=== PATIENT | male | born 1950 | race Caucasian/White ===

== ENCOUNTER → 2017-07-23 09:39 | Outpatient (CLI) | payer MEDICARE, OTHER, SELFPAY ==
--- NOTE | 2017-07-23 | DI.CT.S_ITS ---
PROCEDURE: CT CHEST ABD PEL W CON INDICATIONS: prostate cancer TECHNIQUE: After the administration of oral and intravenous contrast, 5 mm thick sections acquired from the lung apices to the symphysis. 5 mm coronal and sagittal reformats were performed, with additional 7 mm coronal MIP reformats through the lungs. For radiation dose reduction, the following was used: automated exposure control, adjustment of mA and/or kV according to patient size. COMPARISON: None. FINDINGS: Image quality: Excellent. CHEST: Lungs and pleura: No acute airspace opacities. No pleural effusions or pneumothorax. Central and peripheral airways appear patent and normal in caliber. Mediastinum: Heart size is normal. No pericardial effusion. No mediastinal or hilar adenopathy by size criteria. Thoracic aorta and central pulmonary arteries are normal in size. Esophagus is normal in caliber. No hiatal hernia. Chest wall: No axillary or supraclavicular adenopathy by size criteria. Thyroid gland appears normal. ABDOMEN: Solid organs: Liver is normal in size and enhancement. Gallbladder appears normal. Biliary system is non dilated. Pancreas enhances normally. Spleen is normal in size and enhancement. No adrenal nodules. Kidneys demonstrate normal size and enhancement, without hydronephrosis. Peritoneum and bowel: Bowel loops demonstrate normal wall thickness and caliber. No free fluid or air. Nodes and vessels: No retroperitoneal or mesenteric adenopathy by size criteria. Aorta and inferior vena cava are normal in size. Miscellaneous: No ventral hernias. PELVIS: Genitourinary: Bladder wall thickness is normal. Prior prostatectomy Miscellaneous: No inguinal hernias or adenopathy. Bones: Within the pelvis there are several small radiodense foci potentially a manifestation of early osseous metastatic disease. The largest is seen at the posterior border of the left acetabulum, measuring up to 8 mm in diameter, seen on series 2 image 117. 2 punctate sclerotic foci are seen within the medullary space of the left femoral head and a 3 x 5 mm focus is seen within the mid left iliac wing. More superiorly note is made of 3 separate small foci of sclerosis within the right humeral head, and also there is a sclerotic focus in the right acromium. No vertebral body compression fractures. IMPRESSION: No adenopathy seen. Several scattered sclerotic foci are present within the osseous elements of the chest and pelvis, the largest of which is located within the left acetabular posterior column measuring up to 8 mm in diameter. Early osseous metastatic disease might explain these abnormalities. A nuclear medicine bone scan is scheduled. Dictated by: Travon Kaur M.D. on 07/23/2017 at 14:29 Approved by: Travon Kaur M.D. on 07/23/2017 at 14:37
--- NOTE | 2017-07-23 | DI.NM.S_ITS ---
PROCEDURE: NM BONE SCAN WHOLE BODY RADIOPHARMACEUTICAL: 21.6 mCi Tc-99m MDP IV. INDICATIONS: prostate cancer TECHNIQUE: Delayed whole-body scintigrams were obtained approximately 3-4 hours after intravenous injection of radiotracer. Anterior and posterior views were acquired from vertex to feet. Additional left and right oblique views of the pelvis were obtained. COMPARISON: [facility], CT, CT CHEST ABD PEL W CON, 07/23/2017, 11:38. FINDINGS: No abnormal uptake of radiotracer is seen within the bones of the calvarium or bones of the face. No abnormal radiotracer uptake is seen within the cervical spine, thoracic spine, or lumbar spine. No abnormal uptake of radiotracer is seen within the sternum. No abnormal rib uptake is seen. A mild degree of symmetric uptake is seen within the region of the shoulders, which is attributed to degenerative change and is not considered to be pathologic. No abnormal uptake is seen within the upper extremities. There is a focus of radiotracer uptake seen involving greater trochanter of the left femur. No definite CT correlate can be seen for this lesion. No additional abnormal uptake is seen within the pelvis or within the lower extremities. No abnormal soft tissue uptake is seen. The kidneys demonstrate normal positions. IMPRESSION: No definite findings of bony metastatic disease are detected. There is a focus of increased radiotracer uptake involving the greater trochanter of the left femur, yet without a corresponding lesion seen on the accompanying CT examination. This is felt most likely to be benign. It is noted that there are several sclerotic foci seen on the accompanying CT examination. Scrutiny is given to these sites and no definite nuclear medicine correlate abnormal radiotracer uptake can be seen. The CT visible sclerotic lesions may be related to bone islands or lesions that are not metabolically active at this time. Dictated by: Santana Bruner M.D. on 07/23/2017 at 16:17 Approved by: Santana Bruner M.D. on 07/23/2017 at 16:22
[2017-07-23 11:28] LABS: BUN Creatinine Ratio 21.7 (6-22); Calcium 10.4 mg/dL (8.4-10.2); Estimated Glomerular Filt Rate > 60.0 mL/min (>60); Glucose 175 mg/dL (80-110); HEMOLYSIS < 15 (0-50); Potassium 5.2 mmol/L (3.4-5.1); Sodium 139 mmol/L (137-145)
[2017-07-23 11:59] LABS: Prostate Specific Antigen 0.886 ng/mL (0.10-4.00)
== END ==
PROVIDERS: PCP Internal Medicine; Visit Provider Internal Medicine Hematology & Oncology
DX: C61 Malignant neoplasm of prostate (principal)
CPT/HCPCS: 36415; 71260; 74177; 78306; 80048; 84153; A9503

== ENCOUNTER → 2017-11-26 15:07 | Outpatient (CLI) | payer MEDICARE, OTHER, SELFPAY ==
[2017-11-26 15:51] LABS: Add Manual Diff / Slide Review NO; Basophils Percent Auto 0.7 % (0-2); Eosinophils Percent Auto 1.8 % (2-4); Hematocrit 42.8 % (41-53); Hemoglobin 13.9 g/dL (13.5-17.5); Mean Corpuscular HGB Conc 32.6 % (30-36); Mean Corpuscular Hemoglobin 27.8 PG (26-34); Mean Corpuscular Volume 85.3 fL (80-100); Monocytes Percent Auto 8.2 % (3-14); Neutrophils Absolute Auto 5600 /uL (3000-5900); Neutrophils Percent Auto 71.3 % (50-75); Platelet Count 294 X10^3/uL (150-400); Red Blood Cell Count 5.02 X10^6/uL (4.5-5.9); Red Cell Distribution Width 14.5 % (11.6-14.8); White Blood Cell Count 7.8 X10^3/uL (4.5-11.0)
[2017-11-26 16:51] LABS: Alanine Aminotransferase 23 IU/L (21-72); Albumin 3.8 g/dL (3.5-5.0); Albumin Globulin Ratio 1.5 (1.0-2.8); Alkaline Phosphatase 51 U/L (38-126); Aspartate Aminotransferase 15 IU/L (17-59); Bilirubin Total 0.3 mg/dL (0.2-1.3); Blood Urea Nitrogen 23 mg/dL (9-20); Calcium 9.4 mg/dL (8.4-10.2); Carbon Dioxide 29 mmol/L (22-32); Chloride 101 mmol/L (98-107); Estimated Glomerular Filt Rate > 60.0 mL/min (>60); Globulin 2.6 g/dL (1.7-4.1); Glucose 375 mg/dL (80-110); HEMOLYSIS < 15 (0-50); Potassium 4.9 mmol/L (3.4-5.1); Sodium 138 mmol/L (137-145); Total Protein 6.4 g/dL (6.3-8.2)
== END ==
PROVIDERS: Family Provider Radiology Radiation Oncology; PCP Internal Medicine; Referring Provider Radiology Radiation Oncology; Visit Provider Internal Medicine Hematology & Oncology
DX: C61 Malignant neoplasm of prostate (principal)
CPT/HCPCS: 36415; 80053; 84153; 85025

== ENCOUNTER → 2018-02-25 10:39 | Outpatient (CLI) | payer MEDICARE, OTHER, SELFPAY | PROVIDERS: Family Provider Radiology Radiation Oncology; PCP Internal Medicine; Visit Provider Radiology Radiation Oncology | DX: C61 Malignant neoplasm of prostate (principal) | CPT/HCPCS: 36415; 84153 ==

== ENCOUNTER → 2018-07-29 14:06 | Outpatient (CLI) | payer MEDICARE, OTHER, SELFPAY ==
[2018-07-29 15:21] LABS: Alanine Aminotransferase 24 IU/L (21-72); Albumin Globulin Ratio 1.5 (1.0-2.8); Alkaline Phosphatase 85 U/L (38-126); Aspartate Aminotransferase 14 IU/L (17-59); Bilirubin Total 0.5 mg/dL (0.2-1.3); Blood Urea Nitrogen 20 mg/dL (9-20); Calcium 9.6 mg/dL (8.4-10.2); Carbon Dioxide 28 mmol/L (22-32); Chloride 99 mmol/L (98-107); Estimated Glomerular Filt Rate > 60.0 mL/min (>60); Globulin 2.7 g/dL (1.7-4.1); Glucose 262 mg/dL (80-110); HEMOLYSIS < 15 (0-50); Sodium 137 mmol/L (137-145); Total Protein 6.7 g/dL (6.3-8.2)
[2018-07-29 15:25] LABS: Add Manual Diff / Slide Review NO; Basophils Absolute Auto 100 /uL (0-100); Basophils Percent Auto 0.6 % (0-2); Eosinophils Absolute Auto 200 /uL (0-450); Eosinophils Percent Auto 2.1 % (2-4); Hematocrit 42.1 % (41-53); Lymphocytes Absolute Auto 1700 /uL (1100-4500); Lymphocytes Percent Auto 20.4 % (25-40); Mean Corpuscular HGB Conc 33.3 % (30-36); Mean Corpuscular Hemoglobin 27.7 PG (26-34); Mean Corpuscular Volume 83.1 fL (80-100); Monocytes Absolute Auto 700 /uL (0-900); Monocytes Percent Auto 8.2 % (3-14); Neutrophils Absolute Auto 5700 /uL (1500-7000); Neutrophils Percent Auto 68.7 % (50-75); Platelet Count 297 X10^3/uL (150-400); Red Blood Cell Count 5.06 X10^6/uL (4.5-5.9); Red Cell Distribution Width 14.3 % (11.6-14.8); White Blood Cell Count 8.2 X10^3/uL (4.5-11.0)
[2018-07-29 15:52] LABS: Prostate Specific Antigen 9.44 ng/mL (0.10-4.00)
== END ==
PROVIDERS: Family Provider Internal Medicine; PCP Internal Medicine; Visit Provider Internal Medicine Hematology & Oncology
DX: C61 Malignant neoplasm of prostate (principal)
CPT/HCPCS: 36415; 80053; 84153; 85025

== ENCOUNTER → 2018-08-07 09:07 | Outpatient (CLI) | payer MEDICARE, OTHER, SELFPAY ==
--- NOTE | 2018-08-07 | DI.RAD.S_ITS ---
PROCEDURE: XR WRIST RT 2V INDICATIONS: Left wrist pain TECHNIQUE: 2 views of the wrist were acquired. COMPARISON: None. FINDINGS: Bones: No fractures or dislocations but there is moderate degenerative osteoarthritic change best seen at the base of the first and second metacarpal bones.. No suspicious bony lesions. Scaphoid view: No trauma to the scaphoid is seen. Soft tissues: No suspicious soft tissue calcifications. 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 Dictated by: Travon Kaur M.D. on 08/07/2018 at 11:23 Approved by: Travon Kaur M.D. on 08/07/2018 at 11:24
--- NOTE | 2018-08-07 | DI.NM.S_ITS ---
PROCEDURE: SD BONE SCAN WHOLE BODY RADIOPHARMACEUTICAL: 19.9 mCi Tc-99m MDP IV. INDICATIONS: GENITOURINARY NEOPLASM TECHNIQUE: Delayed whole-body scintigrams were obtained approximately 3-4 hours after intravenous injection of radiotracer. Anterior and posterior views were acquired from vertex to feet. Additional left and right oblique views of the pelvis were obtained. COMPARISON: MR, PELVIS [facility]/O CONTRAST, 07/02/2013, 11:10. [facility], NM, NM BONE SCAN WHOLE BODY, 07/23/2017, 13:29. [facility], CT, CT CHEST ABD PEL W CON, 08/07/2018, 10:17. FINDINGS: There are multiple foci of abnormal uptake involving the left third and eighth ribs, and the right fifth, sixth and seventh ribs, possibly lower T8, T9, L2 and L4 vertebral bodies, right sacrum, right and left iliac bones, the left humeral head, consistent with osseous metastases. These osseous lesions are new since the last bone scan. IMPRESSION: Multiple foci of abnormal uptake compatible with osseous metastases. The finding is new since the last bone scan. Dictated by: Tati Vasques M.D. on 08/07/2018 at 14:50 Approved by: Tati Vasques M.D. on 08/07/2018 at 17:59
--- NOTE | 2018-08-07 10:34 | DI.CT.S_ITS ---
PROCEDURE: CT CHEST ABD PEL W CON INDICATIONS: GENITOURINARY NEOPLASM. Elevated PSA TECHNIQUE: After the administration of oral and intravenous contrast, 5 mm thick sections acquired from the lung apices to the symphysis. 5 mm coronal and sagittal reformats were performed, with additional 7 mm coronal MIP reformats through the lungs. For radiation dose reduction, the following was used: automated exposure control, adjustment of mA and/or kV according to patient size. COMPARISON: [facility], CT, CT CHEST ABD PEL W CON, 07/23/2017, 11:38. FINDINGS: Image quality: Excellent. CHEST: Lungs and pleura: No acute airspace opacities. No pleural effusions or pneumothorax. Central and peripheral airways appear patent and normal in caliber. Mediastinum: Heart size is normal. No pericardial effusion. No mediastinal or hilar adenopathy by size criteria. Thoracic aorta and central pulmonary arteries are normal in size. Esophagus is normal in caliber. No hiatal hernia. Chest wall: No axillary or supraclavicular adenopathy by size criteria. Thyroid gland appears normal. ABDOMEN: Solid organs: Liver is normal in size and enhancement. Gallbladder appears normal. Biliary system is non dilated. Pancreas enhances normally. Spleen is normal in size and enhancement. No adrenal nodules. Kidneys demonstrate normal size and enhancement, without hydronephrosis. Peritoneum and bowel: Bowel loops demonstrate normal wall thickness and caliber. No free fluid or air. Nodes and vessels: No retroperitoneal or mesenteric adenopathy by size criteria. Aorta and inferior vena cava are normal in size. Miscellaneous: No ventral hernias. PELVIS: Genitourinary: Bladder wall thickness is normal. Miscellaneous: No inguinal hernias or adenopathy. Bones: No new suspicious bony lesions, and the previously identified scattered foci of punctate elevated radiodensity in the pelvis and shoulder regions bilaterally have not enlarged in size. No vertebral body compression fractures. IMPRESSION: Stable appearing punctate foci of sclerosis within scattered areas of the marrow space, best seen within the pelvis and at the shoulders. No adenopathy has developed. There is stable postsurgical change of prostatectomy. There is a significant change in the bladder wall thickness at the anterior border of the cluster of surgical clips in the prostate resection bed. An area of soft tissue thickening with nodular margination has developed in this area where prior soft tissue thickening in July of last year was not present. This area measures up to 4.1 cm transverse and 2.3 cm in AP dimension, an interval change which can be seen both on axial and sagittal imaging through the bladder. A urology consultation for consideration of endoscopy and biopsy likely is warranted. Dictated by: Travon Kaur M.D. on 08/07/2018 at 13:30 Approved by: Travon Kaur M.D. on 08/07/2018 at 14:10
[2018-08-07 12:05] LABS: Add Manual Diff / Slide Review NO; Basophils Absolute Auto 0 /uL (0-100); Basophils Percent Auto 0.6 % (0-2); Eosinophils Absolute Auto 100 /uL (0-450); Eosinophils Percent Auto 1.6 % (2-4); Hematocrit 41.6 % (41-53); Lymphocytes Absolute Auto 1300 /uL (1100-4500); Lymphocytes Percent Auto 14.9 % (25-40); Mean Corpuscular HGB Conc 33.7 % (30-36); Mean Corpuscular Hemoglobin 27.8 PG (26-34); Mean Corpuscular Volume 82.6 fL (80-100); Monocytes Absolute Auto 800 /uL (0-900); Monocytes Percent Auto 9.6 % (3-14); Neutrophils Absolute Auto 6300 /uL (1500-7000); Neutrophils Percent Auto 73.3 % (50-75); Platelet Count 300 X10^3/uL (150-400); Red Blood Cell Count 5.03 X10^6/uL (4.5-5.9); Red Cell Distribution Width 13.8 % (11.6-14.8); White Blood Cell Count 8.6 X10^3/uL (4.5-11.0)
[2018-08-07 12:16] LABS: Alanine Aminotransferase 25 IU/L (21-72); Albumin Globulin Ratio 1.5 (1.0-2.8); Alkaline Phosphatase 106 U/L (38-126); Aspartate Aminotransferase 17 IU/L (17-59); Bilirubin Total 0.5 mg/dL (0.2-1.3); Blood Urea Nitrogen 20 mg/dL (9-20); Calcium 9.5 mg/dL (8.4-10.2); Carbon Dioxide 24 mmol/L (22-32); Chloride 97 mmol/L (98-107); Estimated Glomerular Filt Rate > 60.0 mL/min (>60); Globulin 2.6 g/dL (1.7-4.1); Glucose 226 mg/dL (80-110); HEMOLYSIS < 15 (0-50); Sodium 131 mmol/L (137-145); Total Protein 6.6 g/dL (6.3-8.2)
[2018-08-07 12:42] LABS: Prostate Specific Antigen 10.8 ng/mL (0.10-4.00)
== END ==
PROVIDERS: Family Provider Internal Medicine; PCP Internal Medicine; Visit Provider Internal Medicine Hematology & Oncology
DX: C61 Malignant neoplasm of prostate (principal); D49.59 Neoplasm of unspecified behavior of other genitourinary organ; M25.532 Pain in left wrist; R97.20 Elevated prostate specific antigen [PSA]
CPT/HCPCS: 36415; 71260; 73100; 74177; 78306; 80053; 84153; 85025; A9503; Q9967

== ENCOUNTER → 2018-09-19 11:05 | Outpatient (CLI) | payer MEDICARE, OTHER, SELFPAY ==
[2018-09-19 12:09] LABS: Add Manual Diff / Slide Review NO; Basophils Absolute Auto 100 /uL (0-100); Basophils Percent Auto 0.8 % (0-2); Eosinophils Absolute Auto 300 /uL (0-450); Eosinophils Percent Auto 2.9 % (2-4); Hemoglobin 14.2 g/dL (13.5-17.5); Lymphocytes Absolute Auto 1700 /uL (1100-4500); Lymphocytes Percent Auto 17.4 % (25-40); Mean Corpuscular HGB Conc 33.7 % (30-36); Mean Corpuscular Hemoglobin 27.8 PG (26-34); Mean Corpuscular Volume 82.4 fL (80-100); Monocytes Absolute Auto 1000 /uL (0-900); Monocytes Percent Auto 10.2 % (3-14); Neutrophils Absolute Auto 6600 /uL (1500-7000); Neutrophils Percent Auto 68.7 % (50-75); Platelet Count 352 X10^3/uL (150-400); Red Cell Distribution Width 14.6 % (11.6-14.8); White Blood Cell Count 9.6 X10^3/uL (4.5-11.0)
[2018-09-19 12:43] LABS: Alanine Aminotransferase 62 IU/L (21-72); Albumin 4.6 g/dL (3.5-5.0); Albumin Globulin Ratio 1.4 (1.0-2.8); Alkaline Phosphatase 322 U/L (38-126); Aspartate Aminotransferase 31 IU/L (17-59); Bilirubin Total 0.5 mg/dL (0.2-1.3); Blood Urea Nitrogen 20 mg/dL (9-20); Carbon Dioxide 27 mmol/L (22-32); Chloride 101 mmol/L (98-107); Estimated Glomerular Filt Rate > 60.0 mL/min (>60); Globulin 3.3 g/dL (1.7-4.1); Glucose 253 mg/dL (80-110); HEMOLYSIS < 15 (0-50); Potassium 4.7 mmol/L (3.4-5.1); Sodium 139 mmol/L (137-145); Total Protein 7.9 g/dL (6.3-8.2)
[2018-09-19 13:09] LABS: Prostate Specific Antigen 1.66 ng/mL (0.10-4.00)
== END ==
PROVIDERS: Family Provider Internal Medicine; PCP Internal Medicine; Visit Provider Internal Medicine Hematology & Oncology
DX: C61 Malignant neoplasm of prostate (principal); C79.51 Secondary malignant neoplasm of bone
CPT/HCPCS: 36415; 80053; 84153; 85025

== ENCOUNTER → 2018-10-13 15:20 | Outpatient (CLI) | payer MEDICARE, OTHER, SELFPAY ==
[2018-10-13 16:31] LABS: Hematocrit 37.3 % (41-53); Hemoglobin 12.2 g/dL (13.5-17.5); Mean Corpuscular HGB Conc 32.8 % (30-36); Mean Corpuscular Hemoglobin 27.2 PG (26-34); Mean Corpuscular Volume 82.9 fL (80-100); Platelet Count 489 X10^3/uL (150-400)
[2018-10-13 16:34] LABS: Add Manual Diff / Slide Review YES
[2018-10-13 16:40] LABS: Alanine Aminotransferase 66 IU/L (21-72); Albumin 3.8 g/dL (3.5-5.0); Albumin Globulin Ratio 1.4 (1.0-2.8); Alkaline Phosphatase 118 U/L (38-126); Aspartate Aminotransferase 25 IU/L (17-59); Bilirubin Total 0.3 mg/dL (0.2-1.3); Blood Urea Nitrogen 24 mg/dL (9-20); Calcium 9.7 mg/dL (8.4-10.2); Carbon Dioxide 23 mmol/L (22-32); Chloride 103 mmol/L (98-107); Estimated Glomerular Filt Rate > 60.0 mL/min (>60); Globulin 2.8 g/dL (1.7-4.1); Glucose 338 mg/dL (80-110); HEMOLYSIS < 15 (0-50); Potassium 4.9 mmol/L (3.4-5.1); Sodium 139 mmol/L (137-145); Total Protein 6.6 g/dL (6.3-8.2)
[2018-10-13 17:10] LABS: Prostate Specific Antigen 2.58 ng/mL (0.10-4.00)
== END ==
PROVIDERS: Family Provider Internal Medicine; PCP Internal Medicine; Visit Provider Internal Medicine Hematology & Oncology
DX: C61 Malignant neoplasm of prostate (principal)
CPT/HCPCS: 36415; 80053; 84153; 85025

== ENCOUNTER → 2018-11-03 11:41 | Outpatient (CLI) | payer MEDICARE, OTHER, SELFPAY ==
[2018-11-03 12:42] LABS: Add Manual Diff / Slide Review NO; Basophils Absolute Auto 100 /uL (0-100); Basophils Percent Auto 1.7 % (0-2); Eosinophils Absolute Auto 100 /uL (0-450); Eosinophils Percent Auto 0.9 % (2-4); Hematocrit 37.9 % (41-53); Hemoglobin 12.4 g/dL (13.5-17.5); Lymphocytes Absolute Auto 2300 /uL (1100-4500); Lymphocytes Percent Auto 29.2 % (25-40); Mean Corpuscular HGB Conc 32.6 % (30-36); Mean Corpuscular Hemoglobin 27.6 PG (26-34); Mean Corpuscular Volume 84.6 fL (80-100); Monocytes Absolute Auto 1000 /uL (0-900); Monocytes Percent Auto 13.3 % (3-14); Neutrophils Absolute Auto 4200 /uL (1500-7000); Neutrophils Percent Auto 54.9 % (50-75); Platelet Count 359 X10^3/uL (150-400); Red Blood Cell Count 4.48 X10^6/uL (4.5-5.9); Red Cell Distribution Width 15.9 % (11.6-14.8); White Blood Cell Count 7.7 X10^3/uL (4.5-11.0)
[2018-11-03 12:52] LABS: Alanine Aminotransferase 32 IU/L (21-72); Albumin 3.9 g/dL (3.5-5.0); Albumin Globulin Ratio 1.4 (1.0-2.8); Alkaline Phosphatase 82 U/L (38-126); Aspartate Aminotransferase 21 IU/L (17-59); BUN Creatinine Ratio 16.7 (6-22); Bilirubin Total 0.4 mg/dL (0.2-1.3); Blood Urea Nitrogen 15 mg/dL (9-20); Calcium 9.5 mg/dL (8.4-10.2); Carbon Dioxide 26 mmol/L (22-32); Chloride 104 mmol/L (98-107); Estimated Glomerular Filt Rate > 60.0 mL/min (>60); Globulin 2.8 g/dL (1.7-4.1); Glucose 106 mg/dL (80-110); HEMOLYSIS < 15 (0-50); Potassium 5.3 mmol/L (3.4-5.1); Sodium 139 mmol/L (137-145); Total Protein 6.7 g/dL (6.3-8.2)
[2018-11-03 13:21] LABS: Prostate Specific Antigen 1.69 ng/mL (0.10-4.00)
== END ==
PROVIDERS: PCP Internal Medicine; Visit Provider Internal Medicine Hematology & Oncology
DX: C61 Malignant neoplasm of prostate (principal); C79.51 Secondary malignant neoplasm of bone
CPT/HCPCS: 36415; 80053; 84153; 85025

== ENCOUNTER → 2018-11-24 13:42 | Outpatient (CLI) | payer MEDICARE, OTHER, SELFPAY ==
[2018-11-24 14:06] LABS: Add Manual Diff / Slide Review NO; Basophils Absolute Auto 100 /uL (0-100); Basophils Percent Auto 0.9 % (0-2); Eosinophils Absolute Auto 0 /uL (0-450); Eosinophils Percent Auto 0.3 % (2-4); Hematocrit 35.7 % (41-53); Hemoglobin 11.9 g/dL (13.5-17.5); Lymphocytes Absolute Auto 1900 /uL (1100-4500); Lymphocytes Percent Auto 17.9 % (25-40); Mean Corpuscular HGB Conc 33.4 % (30-36); Mean Corpuscular Hemoglobin 28.1 PG (26-34); Mean Corpuscular Volume 84.3 fL (80-100); Monocytes Absolute Auto 1400 /uL (0-900); Monocytes Percent Auto 13.1 % (3-14); Neutrophils Absolute Auto 7100 /uL (1500-7000); Neutrophils Percent Auto 67.8 % (50-75); Platelet Count 352 X10^3/uL (150-400); Red Blood Cell Count 4.24 X10^6/uL (4.5-5.9); Red Cell Distribution Width 16.9 % (11.6-14.8); White Blood Cell Count 10.4 X10^3/uL (4.5-11.0)
[2018-11-24 15:03] LABS: Alanine Aminotransferase 39 IU/L (21-72); Albumin 3.5 g/dL (3.5-5.0); Albumin Globulin Ratio 1.4 (1.0-2.8); Alkaline Phosphatase 71 U/L (38-126); Aspartate Aminotransferase 24 IU/L (17-59); BUN Creatinine Ratio 27.8 (6-22); Bilirubin Total 0.4 mg/dL (0.2-1.3); Blood Urea Nitrogen 25 mg/dL (9-20); Calcium 9.3 mg/dL (8.4-10.2); Carbon Dioxide 25 mmol/L (22-32); Chloride 100 mmol/L (98-107); Estimated Glomerular Filt Rate > 60.0 mL/min (>60); Globulin 2.5 g/dL (1.7-4.1); Glucose 295 mg/dL (80-110); HEMOLYSIS < 15 (0-50); Potassium 4.9 mmol/L (3.4-5.1); Sodium 135 mmol/L (137-145)
[2018-11-24 15:33] LABS: Prostate Specific Antigen 1.43 ng/mL (0.10-4.00)
== END ==
PROVIDERS: PCP Internal Medicine; Visit Provider Internal Medicine Hematology & Oncology
DX: C61 Malignant neoplasm of prostate (principal); C79.51 Secondary malignant neoplasm of bone
CPT/HCPCS: 36415; 80053; 84153; 85025

== ENCOUNTER → 2018-12-16 11:47 | Outpatient (CLI) | payer MEDICARE, OTHER, SELFPAY ==
[2018-12-16 13:13] LABS: Prostate Specific Antigen 1.46 ng/mL (0.10-4.00)
== END ==
PROVIDERS: PCP Internal Medicine; Visit Provider Internal Medicine Hematology & Oncology
DX: C61 Malignant neoplasm of prostate (principal); C79.51 Secondary malignant neoplasm of bone
CPT/HCPCS: 36415; 84153

== ENCOUNTER → 2019-03-16 09:33 | Outpatient (CLI) | payer MEDICARE, OTHER, SELFPAY ==
--- NOTE | 2019-03-16 | DI.NM.S_ITS ---
PROCEDURE: OR BONE SCAN WHOLE BODY RADIOPHARMACEUTICAL: 21.6 mCi Tc-99m MDP IV. INDICATIONS: Neoplasm Genitourinary organ TECHNIQUE: Delayed whole-body scintigrams were obtained approximately 3-4 hours after intravenous injection of radiotracer. Anterior and posterior views were acquired from vertex to feet. Additional left and right oblique views of the pelvis were obtained. COMPARISON: [facility], OR, NM BONE SCAN WHOLE BODY, 08/07/2018, 12:42. [facility], CT, CT CHEST ABD PEL W CON, 03/16/2019, 10:49. FINDINGS: Multiple foci of increased uptake are again seen involving the ribs, T8, T9, L2 and L4 vertebral bodies, right sacrum, right and left iliac bones, the left humeral head, consistent with osseous metastases. These osseous lesions are unchanged compared to the last bone scan dated 08/07/1018. No definitive new lesions. Distended urinary bladder, which partially obscure pelvis. IMPRESSION: Stable bone scan with multiple foci of osseous metastasis. Dictated by: Tati Vasques M.D. on 03/16/2019 at 18:18 Approved by: Tati Vasques M.D. on 03/17/2019 at 8:36
--- NOTE | 2019-03-16 09:50 | DI.CT.S_ITS ---
PROCEDURE: CT CHEST ABD PEL W CON INDICATIONS: Neoplasm Genitourinary organ TECHNIQUE: After the administration of oral and intravenous contrast, 5 mm thick sections acquired from the lung apices to the symphysis. 5 mm coronal and sagittal reformats were performed, with additional 7 mm coronal MIP reformats through the lungs. For radiation dose reduction, the following was used: automated exposure control, adjustment of mA and/or kV according to patient size. COMPARISON: [facility], CR, XR CHEST 1 VIEW, 10/10/2018, 12:16. [facility], NM, NM BONE SCAN WHOLE BODY, 08/07/2018, 12:42. [facility], CT, CT CHEST ABD PEL W CON, 08/07/2018, 10:17. FINDINGS: Image quality: Excellent. CHEST: Lungs and pleura: No acute airspace opacities. Right upper lobe inferior aspect 4 mm pulmonary nodule, (3/191), unchanged. Right lower lobe juxtapleural nodule measuring 3 mm, (3/297), unchanged. This may be calcified. A few additional punctate pulmonary nodules. No new or enlarging nodules identified. No pleural effusions or pneumothorax. Central and peripheral airways appear patent and normal in caliber. Mediastinum: Heart size is normal. No pericardial effusion. No mediastinal or hilar adenopathy by size criteria. Subcarinal lymph node with a short axis diameter of 6 mm, (2/37), previously 8 mm. Thoracic aorta and central pulmonary arteries are normal in size. No central pulmonary embolism. Esophagus is normal in caliber. No hiatal hernia. Chest wall: Right-sided port with the catheter tip now projecting cephalad in the internal jugular vein No axillary or supraclavicular adenopathy by size criteria. Thyroid gland is unremarkable. ABDOMEN: Solid organs: Liver is normal in size and enhancement. No focal lesion. Gallbladder is unremarkable. Biliary system is non dilated. Pancreas enhances normally. Spleen is normal in size and enhancement. No adrenal nodules. Kidneys demonstrate normal size and enhancement, without hydronephrosis. Small simple appearing right renal cysts are unchanged. Peritoneum and bowel: Bowel loops demonstrate normal wall thickness and caliber. No free fluid or air. Appendix was not identified. Nodes and vessels: No retroperitoneal or mesenteric adenopathy by size criteria. Small para-aortic lymph node is unchanged. Aorta and inferior vena cava are normal in size. Moderate atherosclerotic plaque. Miscellaneous: No ventral hernias. PELVIS: Genitourinary: Bladder base thickening is less conspicuous. Post prostatectomy. Miscellaneous: Bilateral fat containing inguinal hernias. Pelvic sidewall lymph node dissection. Small left pelvic sidewall node measuring about 1.2 x 1 cm, (04/23), previously 1.1 x 0.8 cm. Bones: Extensive sclerotic lesions throughout the axial and appendicular skeleton which is substantially increased. No vertebral body compression fractures. IMPRESSION: 1. Substantial interval increase in the sclerotic osseous metastases. Please see scheduled same day nuclear medicine bone scan. 2. A few mildly prominent lymph nodes which are suspicious but indeterminate for metastatic disease. 3. No solid parenchymal metastasis. 4. Stable 4 mm pulmonary nodule in the right lower lobe. 5. Malpositioned port catheter tip projecting cephalad in the right IJ. Dictated by: Tommy Kelley M.D. on 03/16/2019 at 12:45 Approved by: Tommy Kelley M.D. on 03/16/2019 at 13:05
[2019-03-16 10:33] LABS: BUN Creatinine Ratio 27.3 (6-22); Blood Urea Nitrogen 30 mg/dL (9-20); Calcium 9.8 mg/dL (8.4-10.2); Carbon Dioxide 26 mmol/L (22-32); Chloride 101 mmol/L (98-107); Estimated Glomerular Filt Rate > 60.0 mL/min (>60); Glucose 291 mg/dL (80-110); HEMOLYSIS < 15 (0-50); Potassium 4.7 mmol/L (3.4-5.1); Sodium 137 mmol/L (137-145)
== END ==
PROVIDERS: Family Provider Internal Medicine; PCP Internal Medicine; Visit Provider Internal Medicine Hematology & Oncology
DX: C61 Malignant neoplasm of prostate (principal); C79.51 Secondary malignant neoplasm of bone; T82.524A Displacement of infusion catheter, initial encounter; R91.8 Other nonspecific abnormal finding of lung field; N28.1 Cyst of kidney, acquired; K40.20 Bilateral inguinal hernia, without obstruction or gangrene, not specified as recurrent
CPT/HCPCS: 36415; 71260; 74177; 78306; 80048; A9503; Q9967

== ENCOUNTER → 2020-03-28 12:53 | Outpatient (CLI) | payer MEDICARE, OTHER, SELFPAY ==
--- NOTE | 2020-03-28 13:51 | DIET.PN ---
Diabetes Intake: Initial Assessment Assess: Mr. Johnson is a 69 yom referred for type 2 diabetes. He has a long standing hx of diabetes, but since beginning cancer therapy his diabetes has not been in good control. He eats an overall healthful diet including lots of vegetables, protein, oatmeal, and soups. 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 Labs: Per pt report: A1c: 9.7 Meds: metf 1000mg BID; glimepiride 10mg ; lantus 30 u pm Diet: per 24 hr recall: B: oatmeal w/ sugar and milk L: salad w/ pro (kale/caesar) D: meat/veg soup Sn: peanuts, almonds, kind bars, rice cake w/cr chz, cheese w/ roast beef Wt: 182lb Ht: 69in BMI: 26.8 DX: Altered nutrition related laboratory values related to impaired glucose metabolism, lack of previous exposure to nutrition information as evidenced by pt report, diagnosis of diabetes, previous diet high in refined carbohydrates. Intervention: 1. Completed intake assessment. Discussed barriers to care. 2. Discussed pathophysiology of diabetes. Reviewed A1c and its correlation to blood glucose numbers. Discussed recommended BG ranges. 3. Discussed importance of self-monitoring, how often, and when to check. 4. Reviewed hyper/hypoglycemia and treatment. 5. Reviewed safe disposal of equipment (strip/lancets/insulin needles). 6. Created SMART goals for pt self-care and success. 7. Discussed program curriculum outline and class needs based on individual goals. SMART Goals: 1. Pt would like to lower A1c by measuring portions and learning to carbohydrate count. Monitor/Evaluate: Pt will call to schedule DSME.
== END ==
PROVIDERS: Family Provider Internal Medicine; PCP Internal Medicine; Referring Provider Internal Medicine; Visit Provider Internal Medicine
DX: E11.9 Type 2 diabetes mellitus without complications (principal); Z79.4 Long term (current) use of insulin; Z71.3 Dietary counseling and surveillance
CPT/HCPCS: G0108

== ENCOUNTER → 2021-10-04 14:05 | Outpatient (CLI) | payer MEDICARE, OTHER, SELFPAY | PROVIDERS: Family Provider Internal Medicine; PCP Internal Medicine; Visit Provider Physician Assistant | DX: N39.0 Urinary tract infection, site not specified (principal) | CPT/HCPCS: 87077; 87086; 87186 ==

== ENCOUNTER 2023-12-16 12:42 | Emergency (ER) | payer MEDICARE, OTHER, SELFPAY ==
[2023-12-16] VITALS (12 sets, daily range): BP systolic 130–151; BP diastolic 63–75; PULSE 106–151; RESP 20–22; TEMP 36.4; O2SAT 98–100; BMI 19.1
--- NOTE | 2023-12-16 12:53 | EKG_ITS ---
[place] [id number] [address] [place] [address] Test Date: 2023-12-16 Pat Name: Lui Johnson Department: [facility] Room: Gender: Male Qm Consultant: ANETTE : 1950 Requested By: Order Number: [id number] Reading MD: Lui Jain MD Measurements Intervals [place] Rate: 132 P: 61 WV: 122 QRS: 66 QRSD: 86 T: 243 QT: 310 QTc: 459 Interpretive Statements Sinus tachycardia Nonspecific ST and T wave abnormality Electronically Signed On 12-16-2023 13:42:59 PDT by Lui Jain MD
--- NOTE | 2023-12-16 13:06 | ED.WEAKNESS ---
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 His last treatment was a few weeks ago he is scheduled to start a new treatment this week. However he has had significant decreased appetite and oral intake. Feels like his abdomen is more distended and bloated. He did have a PET scan last week. No significant nausea or vomiting. Reports that his ribs hurt as well. He does have a history of constipation due to opiate therapy and takes linaclotide. Related Data Home Medications Medication Instructions Recorded Confirmed ASPIRIN (#ASPIR 81) ##0 04/07/11 simvastatin 40 mg tablet (Zocor) ##0 04/07/11 Fish Oil (Fish Oil 500 MG Softgel) 1,000 mg PO QDAY ##0 09/05/11 [MENS MULTIPLE VIT.] ##0 09/05/11 [VIT C ] 1,000 mg PO QDAY ##0 09/05/11 [VIT D3 ] ##0 09/05/11 felodipine 5 mg tablet,extended 10 mg PO QDAY ##0 09/05/11 release 24 hr glimepiride 4 mg tablet (Amaryl) 4 mg PO QDAY ##0 09/05/11 hydrochlorothiazide 25 mg tablet 25 mg PO QDAY ##0 09/05/11 lisinopril 20 mg tablet 20 mg PO QDAY ##0 09/05/11 metformin 500 mg tablet,extended 1,000 mg PO QDAY ##0 09/05/11 release 24 hr (Glucophage XR) Previous Rx's Medication Instructions Recorded lactulose 20 gram/30 mL oral 20 g (30 mL) PO BID PRN 12/16/23 solution constipation #1,200 mL Allergies Allergy/AdvReac Type Severity Reaction Status Date / Time No Known Drug Allergies Allergy Verified 12/16/23 12:52 Patient History Social History Smoking Status: Never smoker eating out: 1-3 times/week Type(s) of exercise: walking Smoking Status: Never smoker Exam Initial Vital Signs Initial Vital Signs: Vital Signs Pulse Rate 143 H 12/16/23 12:48 Pulse Oximetry 100 12/16/23 12:48 GENERAL: Alert thin cachectic 73-year-old male and in no acute distress. HEENT: Head atraumatic,EOMI, pupils reactive, face symmetric, moist mucous membranes CARDIOVASCULAR: Regular rate and rhythm without murmurs, rubs or gallops. RESPIRATORY: Breath sounds equal bilaterally, no wheezes rales or rhonchi. ABDOMEN: Soft, nontender. Normoactive bowel sounds all 4 quadrants. No guarding or rebound. Significant distention EXTREMITIES: Normal range of motion, no clubbing or edema. Neurovascularly intact NEUROLOGICAL: Alert and oriented x4.Normal gait and speech. Cranial nerves II through XII grossly intact. SKIN: Warm, dry, no laceration, no petechiae, no rashes or lesions. Course Orders Ordered: ED Orders 12/16/23 12:50 EKG-12 Lead Stat 12/16/23 13:00 CBC Auto Diff [Complete Blood Count AUTO DIFF] Stat CMP [Comprehensive Metabolic Panel] Stat Lactate (Lactic Acid) Stat Lipase Stat 12/16/23 13:15 CT abdomen pelvis w con Stat 12/16/23 13:25 Respiratory Panel (Film Array) Stat 12/16/23 13:39 Blood Culture Stat Discontinued Medications Acetaminophen (Acetaminophen 325 Mg Tablet) 650 mg PO NOW ONE Stop: 12/16/23 16:50 Last Admin: 12/16/23 16:55 Dose: 650 mg Documented By: GLORIA Sodium Chloride (Normal Saline 0.9%) 1,000 mls @ 1,000 mls/hr IV BOLUS ONE Stop: 12/16/23 14:14 Last Infusion: 12/16/23 15:48 Dose: Infused Documented By: Admin: 12/16/23 13:27 Dose: 1,000 mls/hr Documented By: GLORIA Mineral Oil (Mineral Oil 1 Each Enema) 1 each NC NOW ONE Stop: 12/16/23 15:06 Last Admin: 12/16/23 15:48 Dose: 1 each Documented By: GLORIA Vital Signs Vital signs: Vital Signs - 8 hr 12/16/23 12:48 12/16/23 12:49 12/16/23 12:49 Temperature Pulse Rate 143 H 133 H Respiratory Rate 22 Blood Pressure 151/75 H Pulse Oximetry 100 100 Oxygen Delivery Method 12/16/23 12:52 12/16/23 13:00 12/16/23 13:00 Temperature 97.6 F Pulse Rate 151 H 122 H Respiratory Rate 22 22 Blood Pressure 151/75 H 135/70 Pulse Oximetry 100 99 Oxygen Delivery Method Room Air 12/16/23 13:30 12/16/23 13:30 12/16/23 14:00 Temperature Pulse Rate 116 H 106 H Respiratory Rate 22 20 Blood Pressure 148/67 H Pulse Oximetry 99 98 Oxygen Delivery Method 12/16/23 14:30 12/16/23 15:00 12/16/23 15:30 Temperature Pulse Rate 112 H 113 H 118 H Respiratory Rate 22 21 22 Blood Pressure Pulse Oximetry 98 98 98 Oxygen Delivery Method 12/16/23 16:40 12/16/23 16:41 12/16/23 16:41 Temperature Pulse Rate 117 H 116 H Respiratory Rate Blood Pressure 133/63 Pulse Oximetry 98 99 Oxygen Delivery Method 12/16/23 16:51 12/16/23 16:51 Temperature Pulse Rate 117 H Respiratory Rate Blood Pressure 130/66 Pulse Oximetry 98 Oxygen Delivery Method MDM - Weakness Lab Data 12/16/23 13:00 12/16/23 13:00 Labs: Lab Results 12/16/23 12/16/23 Range/Units 13:00 13:25 WBC 10.0 (4.5-11.0) X10^3/uL RBC 3.54 L (4.5-5.9) X10^6/uL Hgb 8.6 L (13.5-17.5) g/dL Hct 26.8 L (41-53) % MCV 75.7 L (80-100) fL MCH 24.4 L (26-34) PG MCHC 32.2 (30-36) % RDW 22.2 H (11.6-14.8) % Plt Count 576 H (150-400) X10^3/uL Neut % (Auto) Not Reportable Lymph % (Auto) Not Reportable [place] % (Auto) Not Reportable Eos % (Auto) Not Reportable Baso % (Auto) Not Reportable Lymph # (Auto) Not Reportable [place] # (Auto) Not Reportable Baso # (Auto) Not Reportable Total Counted 100 Seg Neutrophils % 66.0 (38-70) % Band Neutrophils % 2.0 L (3-7) % Lymphocytes % (Manual) 23.0 L (25-45) % Monocytes % (Manual) 2.0 (2-11) % Basophils % (Manual) 3.0 H (0-1) % Metamyelocytes % 4.0 H (-0) % Neutrophils # (Manual) 6800 H (3971-4965) /uL Nucleated RBCs 2 H ( - 0) #/Diff Platelet Estimate Increased on smear Plt Morphology Comment RBC Morphology See below Anisocytosis 1+ H Microcytosis 1+ H Sodium 131 L (137-145) mmol/L Potassium 4.3 (3.4-5.1) mmol/L Chloride 96 L (98-107) mmol/L Carbon Dioxide 21 L (22-32) mmol/L BUN 16 (9-20) mg/dL Creatinine 0.54 L (0.66-1.25) mg/dL Estimated GFR > 60 (>60) mL/min BUN/Creatinine Ratio 29.6 H (6-22) Glucose 85 (80-110) mg/dL Lactate 1.4 (0.7-2.1) mmol/L Calcium 9.4 (8.4-10.2) mg/dL Total Bilirubin 0.6 (0.2-1.3) mg/dL AST 55 (17-59) IU/L ALT 11 (<50) IU/L Alkaline Phosphatase 327 H (38-126) U/L Total Protein 7.5 (6.3-8.2) g/dL Albumin 3.6 (3.5-5.0) g/dL Globulin 3.9 (1.7-4.1) g/dL Albumin/Globulin Ratio 0.9 L (1.0-2.8) Lipase 24 (23-300) U/L Chlamy pneumoniae PCR Not detected (Not Detect) Adenovirus (PCR) Not detected (Not Detect) B. pertussis DNA (PCR) Not detected (Not Detect) B.parapertussis DNA PCR Not detected (Not Detecte) Coronavirus OC43 (PCR) Not detected (Not Detect) Coronavirus HKU1 (PCR) Not detected (Not Detect) Coronavirus 229E (PCR) Not detected (Not Detect) SARS-CoV-2 (PCR) Not detected (Not Detecte) Coronavirus NL63 (PCR) Not detected (Not Detect) Human Metapneumovir PCR Not detected (Not Detect) Influenza Type A (PCR) Not detected (Not Detect) Influenza Type B (PCR) Not detected (Not Detect) M. pneumoniae (PCR) Not detected (Not Detect) Parainfluenza 1 (PCR) Not detected (Not Detect) Parainfluenza 2 (PCR) Not detected (Not Detect) Parainfluenza 3 (PCR) Not detected (Not Detect) Parainfluenza 4 (PCR) Not detected (Not Detect) RSV (PCR) Not detected (Not Detect) Entero/Rhino (PCR) Not detected (Not Detect) Imaging Data CT scan - abdomen/pelvis: Radiologist Impression: PROCEDURE: CT ABDOMEN PELVIS W CON INDICATIONS: ab pain hx metastatic prostate cancer TECHNIQUE: After the administration of intravenous contrast, axial sections acquired from the lung bases to the pubic symphysis. Coronal and sagittal reformats were performed. For radiation dose reduction, the following was used: automated exposure control, adjustment of mA and/or kV according to patient size. COMPARISON: None. FINDINGS: Image quality: Diagnostic. Lower Chest: No significant findings. ABDOMEN: Liver: No solid mass. Subcentimeter hypoattenuating lesion in the medial right hepatic lobe, probably benign cyst. Gallbladder: No radiopaque gallstones or wall thickening. Biliary ducts: No biliary dilation. Pancreas: No ductal dilation. Spleen: Size is within normal limits. Adrenal Glands: No adrenal nodules. Kidneys and Ureters: No hydronephrosis. No solid mass. No complex renal cystic lesion which requires follow up. Stomach and Bowel: Normal colonic caliber, without significant wall thickening. Large colonic stool load without rectal wall thickening or colonic wall thickening to suggest stercoral proctitis/ colitis. No obstructing mass. No obstipation. Peritoneum: No abnormal intraperitoneal fluid. No free air. Ventral Wall: No significant ventral hernia. Abdominal Nodes: No retroperitoneal or mesenteric adenopathy by size criteria. Vessels: Aorta and inferior vena cava are normal in size. PELVIS: Pelvic Organs: Prostatectomy Bladder: No bladder wall thickening, accounting for underdistention. Pelvic Nodes: No enlarged lymph nodes. Miscellaneous: No inguinal hernias are seen. Bones: Diffuse osseous metastatic disease, without pathologic fracture. IMPRESSION: Large colonic stool load without rectal wall thickening or colonic wall thickening to suggest stercoral proctitis/ colitis. No obstructing mass. No obstipation. Diffuse osseous metastatic disease, without pathologic fracture. Dictated by: Venkatesh Og M.D. on 12/16/2023 at 13:57 Approved by: Venkatesh Og M.D. on 12/16/2023 at 14:01 ECG Data Attestation: I personally reviewed and interpreted this ECG as follows: Interpretation: Sinus tachycardia rate 132 NC interval 122 QRS [address] changes or T-wave inversions MDM Narrative Medical decision making narrative: MDM CC: Constipation decreased appetite Complicating co-morbidities: Metastatic prostate cancer to brain and bone Medical records reviewed: Primary care note from 12/03/2023, discussed depression at that time new pain time as well Differential considered: Worsening cancer metastasis bowel obstruction Exam documented above, pertinent findings include: Thin cachectic chronically ill male abdomen soft nontender nondistended Lab Test results independently reviewed as above. Pertinent findings: WBC is 10.0 hemoglobin 8.6 hematocrit 26.8, prior labs a CC from 11/12/23 show 8.4/27 CMP: Sodium 131 potassium 4.3 chloride 96 carbon dioxide 21 BUN 16 creatinine 0.5 Independently reviewed EKG as above sinus tachycardia Imaging studies independently reviewed: Significant stool load throughout abdomen bone metastasis no obstruction Treatments: IV fluids, enema Re-evaluations: Patient did not have success with enema Discussion: 73-year-old male with metastatic prostate cancer appears weak cachectic and chronically ill. Complaining of constipation issues. After reading and reviewing records fused constipation has been an issue an ongoing anxiety thing for him. also very concerned that he has not eating or drinking. Recommended protein drink electrolyte fluids encouraged p.o. intake as best as tolerated. They have an appointment with her touch in a couple of days to discuss plan of moving forward. At this time blood work and CT are overall reassuring despite poor p.o. intake electrolytes are stable significant LASHON. At this time patient did not have any success with the enema but abdomen is soft. Recommend lactulose for home treatment which they agreed to. Discharge Plan Departure Patient Disposition: Home Clinical Impression: Constipation Instructions: DI for Constipation Activity Restrictions/Additional Instructions: *You have been diagnosed with constipation *What to do: At this time please stay hydrated. Recommend Pedialyte Gatorade electrolyte packet *Continue to take medications as directed Lactulose 1-2 times daily until constipation resolved *Follow up with your primary care provider in 2-3 days or call [phone] *Return to ER if you should have increased dizziness lightheadedness or any new, worsening or concerning symptoms Prescriptions: New lactulose 20 gram/30 mL solution 20 g PO BID PRN (Reason: constipation) Qty: 1200 0RF No Action ASPIRIN (#ASPIR 81) Qty: 0 simvastatin [Zocor] 40 MG tablet Qty: 0 metformin [Glucophage XR] 500 MG tablet extended release 24 hr 1,000 mg PO QDAY Qty: 0 lisinopril 20 MG tablet 20 mg PO QDAY Qty: 0 hydrochlorothiazide 25 MG tablet 25 mg PO QDAY Qty: 0 glimepiride [Amaryl] 4 MG tablet 4 mg PO QDAY Qty: 0 felodipine 5 MG tablet extended release 24 hr 10 mg PO QDAY Qty: 0 [MENS MULTIPLE VIT.] Qty: 0 Fish Oil (Fish Oil 500 MG Softgel) 1,000 mg PO QDAY Qty: 0 [VIT C ] 1,000 mg PO QDAY Qty: 0 [VIT D3 ] Qty: 0 Referrals: Miscellaneous,Doctor, MD [Primary Care Provider] - Stand Alone Forms: Patient Portal/API
--- NOTE | 2023-12-16 13:15 | DI.CT.S_ITS ---
PROCEDURE: CT ABDOMEN PELVIS W CON INDICATIONS: ab pain hx metastatic prostate cancer TECHNIQUE: After the administration of intravenous contrast, axial sections acquired from the lung bases to the pubic symphysis. Coronal and sagittal reformats were performed. For radiation dose reduction, the following was used: automated exposure control, adjustment of mA and/or kV according to patient size. COMPARISON: None. FINDINGS: Image quality: Diagnostic. Lower Chest: No significant findings. ABDOMEN: Liver: No solid mass. Subcentimeter hypoattenuating lesion in the medial right hepatic lobe, probably benign cyst. Gallbladder: No radiopaque gallstones or wall thickening. Biliary ducts: No biliary dilation. Pancreas: No ductal dilation. Spleen: Size is within normal limits. Adrenal Glands: No adrenal nodules. Kidneys and Ureters: No hydronephrosis. No solid mass. No complex renal cystic lesion which requires follow up. Stomach and Bowel: Normal colonic caliber, without significant wall thickening. Large colonic stool load without rectal wall thickening or colonic wall thickening to suggest stercoral proctitis/ colitis. No obstructing mass. No obstipation. Peritoneum: No abnormal intraperitoneal fluid. No free air. Ventral Wall: No significant ventral hernia. Abdominal Nodes: No retroperitoneal or mesenteric adenopathy by size criteria. Vessels: Aorta and inferior vena cava are normal in size. PELVIS: Pelvic Organs: Prostatectomy Bladder: No bladder wall thickening, accounting for underdistention. Pelvic Nodes: No enlarged lymph nodes. Miscellaneous: No inguinal hernias are seen. Bones: Diffuse osseous metastatic disease, without pathologic fracture. IMPRESSION: Large colonic stool load without rectal wall thickening or colonic wall thickening to suggest stercoral proctitis/ colitis. No obstructing mass. No obstipation. Diffuse osseous metastatic disease, without pathologic fracture. Dictated by: Venkatesh Og M.D. on 12/16/2023 at 13:57 Approved by: Venkatesh Og M.D. on 12/16/2023 at 14:01
[2023-12-16 13:27] LABS: Hematocrit 26.8 % (41-53); Hemoglobin 8.6 g/dL (13.5-17.5); Mean Corpuscular HGB Conc 32.2 % (30-36); Mean Corpuscular Hemoglobin 24.4 PG (26-34); Mean Corpuscular Volume 75.7 fL (80-100); Platelet Count 576 X10^3/uL (150-400); Red Blood Cell Count 3.54 X10^6/uL (4.5-5.9); Red Cell Distribution Width 22.2 % (11.6-14.8)
[2023-12-16] MEDS: SODIUM CHLORIDE 0.9% 1,000 ML 1000 ML IV (13:27)
[2023-12-16 13:29] LABS: Add Manual Diff / Slide Review YES; Alanine Aminotransferase 11 IU/L (<50); Albumin 3.6 g/dL (3.5-5.0); Albumin Globulin Ratio 0.9 (1.0-2.8); Alkaline Phosphatase 327 U/L (38-126); Aspartate Aminotransferase 55 IU/L (17-59); BUN Creatinine Ratio 29.6 (6-22); Bilirubin Total 0.6 mg/dL (0.2-1.3); Blood Urea Nitrogen 16 mg/dL (9-20); Calcium 9.4 mg/dL (8.4-10.2); Carbon Dioxide 21 mmol/L (22-32); Chloride 96 mmol/L (98-107); Estimated Glomerular Filt Rate > 60 mL/min (>60); Globulin 3.9 g/dL (1.7-4.1); Glucose 85 mg/dL (80-110); HEMOLYSIS < 15 (0-50); Lactate (Lactic Acid) 1.4 mmol/L (0.7-2.1); Lipase 24 U/L (23-300); Potassium 4.3 mmol/L (3.4-5.1); Sodium 131 mmol/L (137-145); Total Protein 7.5 g/dL (6.3-8.2)
[2023-12-16 13:58] LABS: Neutrophils Absolute Manual 6800 /uL (3000-5900); Nucleated Red Blood Cells 2 #/Diff; Total Cells Counted 100
[2023-12-16 13:59] LABS: Anisocytosis 1+; Microcytosis 1+; Platelet Estimate Increased on smear
[2023-12-16 14:45] LABS: Adenovirus Not Detected (Not Detect); B. parapertussis Not Detected (Not Detecte); Bordetella pertussis Not Detected (Not Detect); Chlamydophila pneumoniae Not Detected (Not Detect); Coronavirus 229E Not Detected (Not Detect); Coronavirus HKU1 Not Detected (Not Detect); Coronavirus NL 63 Not Detected (Not Detect); Coronavirus OC43 Not Detected (Not Detect); Human Metapneumovirus Not Detected (Not Detect); Human Rhinovirus/Enterovirus Not Detected (Not Detect); Influenza A Not Detected (Not Detect); Influenza B Not Detected (Not Detect); Mycoplasma pneumoniae Not Detected (Not Detect); Parainfluenza Virus 1 Not Detected (Not Detect); Parainfluenza Virus 2 Not Detected (Not Detect); Parainfluenza Virus 3 Not Detected (Not Detect); Parainfluenza Virus 4 Not Detected (Not Detect); Respiratory Syncytial Virus Not Detected (Not Detect); SARS- CoV-2 Not Detected (Not Detecte)
[2023-12-16] MEDS: MINERAL OIL 1 EACH ENEMA PR (15:48)
--- NOTE | 2023-12-16 16:51 | PC.NURSE ---
Patient requests tylenol for bone pain verbal order given by Dr. Sanchez for Tylenol 650mg PO.
[2023-12-16] MEDS: ACETAMINOPHEN 325 MG TABLET 650 MG PO (16:55)
--- NOTE | 2023-12-16 17:02 | PC.NURSE ---
1640 No stool output after enema. Dr. biswas at bedside and aware, discussing DC with lactulose. Patient requesting pain meds that won't constipate me.
== END 2023-12-16 17:03 | disposition home or self-care (01) ==
PROVIDERS: Emergency Provider Emergency Medicine; Family Provider Internal Medicine
DX: K59.00 Constipation, unspecified (principal); C79.82 Secondary malignant neoplasm of genital organs; R00.0 Tachycardia, unspecified; Z11.52 Encounter for screening for COVID-19
CPT/HCPCS: 36415; 74177; 80053; 83605; 83690; 85007; 85025; 87040; 87633; 93005; 96360; 96361; 99284; Q9967

== ENCOUNTER 2023-12-28 19:37 | Inpatient (IN) | payer MEDICARE, OTHER, SELFPAY ==
[2023-12-28] VITALS (15 sets, daily range): BP systolic 96–134; BP diastolic 55–64; PULSE 111–137; RESP 16–23; TEMP 36.4–37.3; O2SAT 99–100; BMI 18.4
--- NOTE | 2023-12-28 19:57 | DI.RAD.S_ITS ---
PROCEDURE: XR CHEST 1V INDICATIONS: chest pain TECHNIQUE: One view of the chest was acquired. COMPARISON: [facility], CR, XR CHEST 1 VIEW, 10/10/2018, 12:16. [facility], CT, CT ABDOMEN PELVIS W CON, 12/16/2023, 13:38. [facility], CT, CT CHEST ABD PEL W CON, 03/16/2019, 10:49. (Additional prior imaging is not available for review from the archive at the time of this dictation.) FINDINGS: Surgical changes and devices: None. Lungs and pleura: On this semiupright portable chest examination, no large pneumothorax or large pleural effusions are seen. No focal infiltrates are seen. Mediastinum: Mediastinal contours appear normal. Heart size is normal. Bones and chest wall: This patient has known sclerotic metastases, which were not well seen on this plain film study. Mild dextroconvex scoliotic curvature is seen. Age-appropriate bony degenerative changes are seen. Overlying soft tissues appear unremarkable. IMPRESSION: Portable chest within normal limits for age. Dictated by: Santana Bruner M.D. on 12/28/2023 at 19:13 Approved by: Santana Bruner M.D. on 12/28/2023 at 19:16
--- NOTE | 2023-12-28 20:29 | EKG_ITS ---
[address] [address] Test Date: 2023-12-28 Pat Name: Lui Johnson Department: Room: Gender: Male Quality Improvement Specialist: SUSANA : 1950 Requested By: Order Number: [id number] Reading MD: Luis Bennett Measurements Intervals [place] Rate: 119 P: 67 [place]: 126 QRS: 68 QRSD: 86 T: -70 QT: 324 QTc: 455 Interpretive Statements Sinus tachycardia Nonspecific T wave abnormality Electronically Signed On 12-30-2023 15:50:25 PDT by Luis Bennett
[2023-12-28 20:35] LABS: Add Manual Diff / Slide Review NO; Basophils Absolute Auto 100 /uL (0-100); Basophils Percent Auto 0.9 % (0-2); Eosinophils Absolute Auto 100 /uL (0-450); Eosinophils Percent Auto 0.9 % (2-4); Lymphocytes Absolute Auto 1700 /uL (1100-4500); Lymphocytes Percent Auto 17.9 % (25-40); Mean Corpuscular HGB Conc 32.4 % (30-36); Mean Corpuscular Hemoglobin 26.4 PG (26-34); Mean Corpuscular Volume 81.3 fL (80-100); Monocytes Absolute Auto 600 /uL (0-900); Monocytes Percent Auto 6.6 % (3-14); Neutrophils Absolute Auto 7000 /uL (1500-7000); Neutrophils Percent Auto 73.7 % (50-75); Platelet Count 415 X10^3/uL (150-400); Red Cell Distribution Width 23.1 % (11.6-14.8); White Blood Cell Count 9.5 X10^3/uL (4.5-11.0)
[2023-12-28 20:38] LABS: Hematocrit 20.4 % (41-53); Hemoglobin 6.6 g/dL (13.5-17.5)
--- NOTE | 2023-12-28 20:39 | ED_ITS ---
HPI - GI Bleed <Cr Walker MD - Last Filed: 12/30/23 10:48> General Chief complaint: GI Bleed Stated complaint: blood in stool, being treated for cancer Time Seen by Provider: 12/28/23 19:57 Source: patient Mode of arrival: Wheelchair History of Present Illness HPI Narrative: 73-year-old male with history of remote diagnosis prostate cancer 2011, per at bedside recurrence was diagnosed 2019, chemotherapy, referred to [facility], followed by oncologist Melissa Sterling, from a telemedicine visit last week apparently there oncologist thought patient was dehydrated, requested to be admitted [facility], patient was driven POV from [place] home area by his to [facility], where he was admitted, believes he was admitted there 12/17/2023 through 12/25/2023, while there she believes he had 2 unit packed cell transfusion, does not recall any upper or lower endoscopy evaluations. No other specific diagnoses recalled by the . While at home in [place], noticed in his diaper he had dark stools, cranberry appearance. No fevers or chills. He has generalized weakness ongoing, no focal weakness to face arm or leg. No fall injury or trauma. Related Data Home Medications Medication Instructions Recorded Confirmed ASPIRIN (#ASPIR 81) 81 mg PO DAILY ##0 04/07/11 12/29/23 Fish Oil (Fish Oil 500 MG Softgel) 2,000 mg PO QDAY ##0 09/05/11 12/29/23 [MENS MULTIPLE VIT.] 1 tab PO DAILY ##0 09/05/11 12/29/23 metformin 500 mg tablet,extended 1,000 mg PO BID ##0 09/05/11 12/29/23 release 24 hr (Glucophage XR) acetaminophen 500 mg tablet 1,000 mg PO Q6H PRN Pain (Scale 12/29/23 12/29/23 (Tylenol Extra Strength) Score 4-6) bisacodyl 10 mg rectal suppository 10 mg TX DAILY PRN Constipation 12/29/23 12/29/23 calcium citrate 200 mg 1 tab PO DAILY 12/29/23 12/29/23 calcium-vitamin D3 3.125 mcg (125 unit) tablet duloxetine 60 mg capsule,delayed 60 mg PO DAILY 10/20/24 10/20/24 release insulin glargine 100 unit/mL (3 12 unit SUBCUT BEDTIME 12/29/23 12/29/23 mL) subcutaneous pen (Lantus Solostar U-100 Insulin) lisinopril 20 mg tablet 20 mg PO DAILY PRN Hypertension 12/29/23 12/29/23 magnesium oxide 400 mg PO DAILY 12/29/23 12/29/23 mirtazapine 7.5 mg tablet 7.5 mg PO ONCE PM 12/29/23 12/29/23 polyethylene glycol 3350 17 gram 17 g PO DAILY PRN Constipation 12/29/23 12/29/23 oral powder packet (Miralax) pregabalin 82.5 mg tablet, 82.5 mg PO BEDTIME 12/29/23 12/29/23 extended release 24 hr Allergies Allergy/AdvReac Type Severity Reaction Status Date / Time No Known Drug Allergies Allergy Verified 12/28/23 19:46 Review of Systems <Cr Walker MD - Last Filed: 12/30/23 10:48> Review of Systems Narrative: see HPI Patient History <Cr Walker MD - Last Filed: 12/30/23 10:48> Social History household members: spouse Smoking Status: Never smoker alcohol intake: never eating out: 1-3 times/week Type(s) of exercise: walking Smoking Status: Never smoker Exam <Cr Walker MD - Last Filed: 12/30/23 10:48> Narrative Exam Narrative: GENERAL: Well-developed patient, in mild distress. HEAD: Atraumatic. Normocephalic. EYES: Pupils equal round and reactive. Extraocular motions intact. No scleral icterus. No injection or drainage. ENT: Nose without bleeding, purulent drainage. Throat without erythema, tonsillar hypertrophy or exudate. Airway patent. NECK: Trachea midline. Non tender CARDIOVASCULAR: Fast regular rate, no obvious murmurs, gallops, or rubs. RESPIRATORY: Clear to auscultation. Breath sounds equal bilaterally. No wheezes, rales, or rhonchi. GASTROINTESTINAL: Abdomen soft, non-tender, nondistended. EXTREMITIES: No edema or joint tenderness. BACK: Nontender without deformity or crepitance. No flank tenderness. NEURO: AOx3. Motor functions grossly nonfocal SKIN: No rash or erythema of visible areas Initial Vital Signs Initial Vital Signs: Vital Signs Temperature 97.7 F 12/28/23 19:46 Pulse Rate 137 H 12/28/23 19:46 Respiratory Rate 20 12/28/23 19:46 Blood Pressure 96/55 L 12/28/23 19:46 Pulse Oximetry 100 12/28/23 19:46 Oxygen Delivery Method Room Air 12/28/23 19:46 <Caryn Sanchez DO - Last Filed: 12/29/23 08:41> Initial Vital Signs Initial Vital Signs: Vital Signs Temperature 97.7 F 12/28/23 19:46 Pulse Rate 137 H 12/28/23 19:46 Respiratory Rate 20 12/28/23 19:46 Blood Pressure 96/55 L 12/28/23 19:46 Pulse Oximetry 100 12/28/23 19:46 Oxygen Delivery Method Room Air 12/28/23 19:46 Course <Cr Walker MD - Last Filed: 12/30/23 10:48> Orders Ordered: ED Orders 12/30/23 04:50 Basic Metabolic Panel Routine Complete Blood Count AUTO DIFF Routine 12/30/23 06:50 Hemoglobin and Hematocrit Stat 12/31/23 05:00 BMP [Basic Metabolic Panel] DAILY Acetaminophen (Acetaminophen 325 Mg Tablet) 650 mg PO Q4H PRN PRN Reason: Fever/Mild Pain (1-3) Last Admin: 12/30/23 06:01 Dose: 650 mg Documented By: Admin: 12/29/23 20:44 Dose: 650 mg Documented By: Admin: 12/29/23 14:57 Dose: 650 mg Documented By: Admin: 12/29/23 09:40 Dose: 650 mg Documented By: SUSAN Duloxetine HCl (Duloxetine 30 Mg Capsule) 60 mg PO DAILY [facility] Last Admin: 12/30/23 09:35 Dose: Not Given Documented By: BT Sodium Chloride (Normal Saline 0.9%) 1,000 mls @ 150 mls/hr IV CONT ADELAIDA Last Admin: 12/30/23 05:48 Dose: 150 mls/hr Documented By: Infusion: 12/30/23 05:40 Dose: Infused Documented By: Admin: 12/29/23 22:59 Dose: 150 mls/hr Documented By: Infusion: 12/29/23 22:59 Dose: Infused Documented By: Admin: 12/29/23 17:12 Dose: 150 mls/hr Documented By: Infusion: 12/29/23 17:12 Dose: Infused Documented By: Admin: 12/29/23 10:32 Dose: 150 mls/hr Documented By: Admin: 12/28/23 21:37 Dose: Not Given Documented By: ZGG POTASSIUM CHLORIDE IN WATER (Potassium Cl 10 Meq/100 Ml Fabi) 10 meq in 100 mls @ 100 mls/hr IV Q1H ADELAIDA Stop: 12/30/23 11:29 Last Admin: 12/30/23 08:11 Dose: 100 mls/hr Documented By: ADELITA Insulin Glargine (Insulin Glargine 100 Unit/Ml 3ml Pen) 6 unit SUBCUT BEDTIME ADELAIDA Last Admin: 12/29/23 20:59 Dose: Not Given Documented By: Insulin Human Lispro (Insulin Lispro 100 Unit/Ml 3ml Vial) 0 unit SUBCUT ACHS ADELAIDA; Protocol Last Admin: 12/30/23 07:59 Dose: Not Given Documented By: Admin: 12/29/23 20:59 Dose: Not Given Documented By: Admin: 12/29/23 17:31 Dose: 2 unit Documented By: JELANI Co-signed By: DOMITILA Mirtazapine (Mirtazapine 15 Mg Tablet) 7.5 mg PO BEDTIME ADELAIDA Last Admin: 12/29/23 20:46 Dose: 7.5 mg Documented By: Naloxone HCl (Naloxone 0.4 Mg/Ml Vial) 0.2 mg IV Q2MIN PRN PRN Reason: Opiate Reversal Ondansetron HCl (Ondansetron 4 Mg/2 Ml Inj) 4 mg IV Q8HR PRN PRN Reason: Nausea And Vomiting Pregabalin (Pregabalin 25 Mg Capsule) 75 mg PO BEDTIME ADELAIDA Last Admin: 12/29/23 20:45 Dose: 75 mg Documented By: Sodium Chloride (Sodium Chloride 0.9% Flush) 10 ml IV BID ADELAIDA Last Admin: 12/30/23 09:35 Dose: Not Given Documented By: Admin: 12/29/23 23:00 Dose: 10 ml Documented By: MS Discontinued Medications Acetaminophen (Acetaminophen 325 Mg Tablet) 650 mg PO NOW ONE Stop: 12/29/23 01:21 Last Admin: 12/29/23 01:23 Dose: 650 mg Documented By: CHRIS Sodium Chloride (Normal Saline 0.9%) 1,000 mls @ 1,000 mls/hr IV BOLUS ONE Stop: 12/28/23 20:57 Last Admin: 12/28/23 21:30 Dose: Not Given Documented By: BARRIE Sodium Chloride (Normal Saline 0.9%) 500 mls @ 1,000 mls/hr IV BOLUS ONE Stop: 12/28/23 22:05 Last Infusion: 12/28/23 22:41 Dose: Infused Documented By: Admin: 12/28/23 21:38 Dose: 1,000 mls/hr Documented By: BARRIE Non-Formulary Medication (Pregabalin) 82.5 mg PO BEDTIME ADELAIDA Pantoprazole Sodium (Pantoprazole 40 Mg Vial) 80 mg IV NOW ONE Stop: 12/29/23 07:55 Last Admin: 12/29/23 09:23 Dose: 80 mg Documented By: SUSAN Polyethylene Glycol/Electrolytes ([id number]/Sod Sulf,Bicarb,Cl/Kcl 4,000 Ml Solution) 4,000 ml PO NOW ONE Stop: 12/29/23 10:07 Last Admin: 12/29/23 11:20 Dose: 4,000 ml Documented By: TLS Vital Signs Vital signs: Vital Signs - 8 hr 12/30/23 04:00 12/30/23 08:00 12/30/23 09:38 Temperature 97.6 F 97.3 F L 97.3 F L Pulse Rate 121 H 122 H 120 H Respiratory Rate 16 18 17 Blood Pressure 141/62 H 127/61 130/67 Pulse Oximetry 100 97 99 Oxygen Delivery Method Room Air Oxygen Flow Rate 0 0 12/30/23 10:25 12/30/23 10:31 Temperature 97.9 F Pulse Rate 107 H 111 H Respiratory Rate 14 16 Blood Pressure 108/56 L 103/53 L Pulse Oximetry 97 99 Oxygen Delivery Method Room Air Room Air Oxygen Flow Rate <Caryn Sanchez DO - Last Filed: 12/29/23 08:41> Orders Ordered: ED Orders 12/30/23 04:50 Basic Metabolic Panel Routine Complete Blood Count AUTO DIFF Routine 12/30/23 06:50 Hemoglobin and Hematocrit Stat 12/31/23 05:00 BMP [Basic Metabolic Panel] DAILY Acetaminophen (Acetaminophen 325 Mg Tablet) 650 mg PO Q4H PRN PRN Reason: Fever/Mild Pain (1-3) Last Admin: 12/30/23 06:01 Dose: 650 mg Documented By: Admin: 12/29/23 20:44 Dose: 650 mg Documented By: Admin: 12/29/23 14:57 Dose: 650 mg Documented By: Admin: 12/29/23 09:40 Dose: 650 mg Documented By: SUSAN Duloxetine HCl (Duloxetine 30 Mg Capsule) 60 mg PO DAILY A[facility]LAIDA Last Admin: 12/30/23 09:35 Dose: Not Given Documented By: BT Sodium Chloride (Normal Saline 0.9%) 1,000 mls @ 150 mls/hr IV CONT ADELAIDA Last Admin: 12/30/23 05:48 Dose: 150 mls/hr Documented By: Infusion: 12/30/23 05:40 Dose: Infused Documented By: Admin: 12/29/23 22:59 Dose: 150 mls/hr Documented By: Infusion: 12/29/23 22:59 Dose: Infused Documented By: Admin: 12/29/23 17:12 Dose: 150 mls/hr Documented By: Infusion: 12/29/23 17:12 Dose: Infused Documented By: Admin: 12/29/23 10:32 Dose: 150 mls/hr Documented By: Admin: 12/28/23 21:37 Dose: Not Given Documented By: BARRIE POTASSIUM CHLORIDE IN WATER (Potassium Cl 10 Meq/100 Ml Fabi) 10 meq in 100 mls @ 100 mls/hr IV Q1H ADELAIDA Stop: 12/30/23 11:29 Last Admin: 12/30/23 08:11 Dose: 100 mls/hr Documented By: ADELITA Insulin Glargine (Insulin Glargine 100 Unit/Ml 3ml Pen) 6 unit SUBCUT BEDTIME ADELAIDA Last Admin: 12/29/23 20:59 Dose: Not Given Documented By: Insulin Human Lispro (Insulin Lispro 100 Unit/Ml 3ml Vial) 0 unit SUBCUT ACHS ADELAIDA; Protocol Last Admin: 12/30/23 07:59 Dose: Not Given Documented By: Admin: 12/29/23 20:59 Dose: Not Given Documented By: Admin: 12/29/23 17:31 Dose: 2 unit Documented By: CLL Co-signed By: DOMITILA Mirtazapine (Mirtazapine 15 Mg Tablet) 7.5 mg PO BEDTIME [facility] Last Admin: 12/29/23 20:46 Dose: 7.5 mg Documented By: Naloxone HCl (Naloxone 0.4 Mg/Ml Vial) 0.2 mg IV Q2MIN PRN PRN Reason: Opiate Reversal Ondansetron HCl (Ondansetron 4 Mg/2 Ml Inj) 4 mg IV Q8HR PRN PRN Reason: Nausea And Vomiting Pregabalin (Pregabalin 25 Mg Capsule) 75 mg PO BEDTIME [facility] Last Admin: 12/29/23 20:45 Dose: 75 mg Documented By: Sodium Chloride (Sodium Chloride 0.9% Flush) 10 ml IV BID [facility] Last Admin: 12/30/23 09:35 Dose: Not Given Documented By: Admin: 12/29/23 23:00 Dose: 10 ml Documented By: Discontinued Medications Acetaminophen (Acetaminophen 325 Mg Tablet) 650 mg PO NOW ONE Stop: 12/29/23 01:21 Last Admin: 12/29/23 01:23 Dose: 650 mg Documented By: CHRIS Sodium Chloride (Normal Saline 0.9%) 1,000 mls @ 1,000 mls/hr IV BOLUS ONE Stop: 12/28/23 20:57 Last Admin: 12/28/23 21:30 Dose: Not Given Documented By: BARRIE Sodium Chloride (Normal Saline 0.9%) 500 mls @ 1,000 mls/hr IV BOLUS ONE Stop: 12/28/23 22:05 Last Infusion: 12/28/23 22:41 Dose: Infused Documented By: Admin: 12/28/23 21:38 Dose: 1,000 mls/hr Documented By: BARRIE Non-Formulary Medication (Pregabalin) 82.5 mg PO BEDTIME [facility] Pantoprazole Sodium (Pantoprazole 40 Mg Vial) 80 mg IV NOW ONE Stop: 12/29/23 07:55 Last Admin: 12/29/23 09:23 Dose: 80 mg Documented By: SUSAN Polyethylene Glycol/Electrolytes ([id number]/Sod Sulf,Bicarb,Cl/Kcl 4,000 Ml Solution) 4,000 ml PO NOW ONE Stop: 12/29/23 10:07 Last Admin: 12/29/23 11:20 Dose: 4,000 ml Documented By: DOMITILA Vital Signs Vital signs: Vital Signs - 8 hr 12/30/23 04:00 12/30/23 08:00 12/30/23 09:38 Temperature 97.6 F 97.3 F L 97.3 F L Pulse Rate 121 H 122 H 120 H Respiratory Rate 16 18 17 Blood Pressure 141/62 H 127/61 130/67 Pulse Oximetry 100 97 99 Oxygen Delivery Method Room Air Oxygen Flow Rate 0 0 12/30/23 10:25 12/30/23 10:31 Temperature 97.9 F Pulse Rate 107 H 111 H Respiratory Rate 14 16 Blood Pressure 108/56 L 103/53 L Pulse Oximetry 97 99 Oxygen Delivery Method Room Air Room Air Oxygen Flow Rate MDM - GI Bleed <Cr Walker MD - Last Filed: 12/30/23 10:48> Lab Data Attestation: I reviewed the patient's lab results. Lab results narrative: Hemoglobin 6.6 initially, low compared to previous available resolved 8.6 here on 12/16/23, transfusion 2 units packed cells, repeat hemoglobin 8.3 improved. Platelet count on initial draw normal. Glucose 236 noted. Anion gap normal. 12/30/23 06:50 12/30/23 04:50 Labs: Lab Results 12/28/23 12/28/23 12/28/23 Range/Units 20:22 20:44 22:35 WBC 9.5 (4.5-11.0) X10^3/uL RBC 2.50 L (4.5-5.9) X10^6/uL Hgb 6.6 L* (13.5-17.5) g/dL Hct 20.4 L* (41-53) % MCV 81.3 (80-100) fL MCH 26.4 (26-34) PG MCHC 32.4 (30-36) % RDW 23.1 H (11.6-14.8) % Plt Count 415 H (150-400) X10^3/uL Neut % (Auto) 73.7 (50-75) % Lymph % (Auto) 17.9 L (25-40) % [place] % (Auto) 6.6 (3-14) % Eos % (Auto) 0.9 L (2-4) % Baso % (Auto) 0.9 (0-2) % Neut # (Auto) 7000 (4623-6303) /uL Lymph # (Auto) 1700 (4664-2001) /uL [place] # (Auto) 600 (0-900) /uL Eos # (Auto) 100 (0-450) /uL Baso # (Auto) 100 (0-100) /uL Platelet Estimate RBC Morphology Not Reportable Hypochromasia Anisocytosis Microcytosis Rouleaux 1+ H Sodium 129 L (137-145) mmol/L Potassium 4.5 (3.4-5.1) mmol/L Chloride 96 L (98-107) mmol/L Carbon Dioxide 25 (22-32) mmol/L BUN 36 H (9-20) mg/dL Creatinine 0.59 L (0.66-1.25) mg/dL Estimated GFR > 60 (>60) mL/min BUN/Creatinine Ratio 61.0 H (6-22) Glucose 236 H (80-110) mg/dL Lactate 3.1 H 1.3 (0.7-2.1) mmol/L Calcium 8.6 (8.4-10.2) mg/dL Total Bilirubin 0.4 (0.2-1.3) mg/dL AST 23 (17-59) IU/L ALT 13 (<50) IU/L Alkaline Phosphatase 340 H (38-126) U/L Total Creatine Kinase 29 L (55-170) U/L Troponin I < 0.012 (0.01-0.034) ng/mL Total Protein 5.9 L (6.3-8.2) g/dL Albumin 2.8 L (3.5-5.0) g/dL Globulin 3.1 (1.7-4.1) g/dL Albumin/Globulin Ratio 0.9 L (1.0-2.8) Lipase 42 (23-300) U/L Urine Color Urine Appearance Urine pH (4.5-8.0) Ur Specific [place] (1.000-1.035) Urine Protein (Negative) Urine Glucose (UA) (Negative) g/dL Urine Ketones (NEGATIVE) Urine Occult Blood (Negative) Urine Nitrate (Negative) Urine Bilirubin (NEGATIVE) Urine Urobilinogen (0.2) E.U./dL Ur Leukocyte Esterase (NEGATIVE) Urine RBC (0-5/HPF) Urine WBC (0-5/HPF) Ur Squamous Epith Cells (0-5/HPF) Urine Bacteria (None) Ur Culture Indicated? Vol Urine Centrifuged Blood Type B Positive Antibody Screen Negative Crossmatch See Detail 12/29/23 12/29/23 12/30/23 Range/Units 01:55 09:47 04:50 WBC 7.7 (4.5-11.0) X10^3/uL RBC 2.49 L (4.5-5.9) X10^6/uL Hgb 8.3 L 6.7 L* (13.5-17.5) g/dL Hct 25.0 L 19.9 L* (41-53) % MCV 79.8 L (80-100) fL MCH 26.9 (26-34) PG MCHC 33.7 (30-36) % RDW 20.9 H (11.6-14.8) % Plt Count 299 (150-400) X10^3/uL Neut % (Auto) 74.3 (50-75) % Lymph % (Auto) 17.4 L (25-40) % [place] % (Auto) 6.0 (3-14) % Eos % (Auto) 1.3 L (2-4) % Baso % (Auto) 1.0 (0-2) % Neut # (Auto) 5800 (9358-5954) /uL Lymph # (Auto) 1300 (1165-2121) /uL [place] # (Auto) 500 (0-900) /uL Eos # (Auto) 100 (0-450) /uL Baso # (Auto) 100 (0-100) /uL Platelet Estimate Adequate on smear RBC Morphology See below Hypochromasia 2+ H Anisocytosis 2+ H Microcytosis 2+ H Rouleaux Sodium 134 L (137-145) mmol/L Potassium 3.3 L D (3.4-5.1) mmol/L Chloride 105 (98-107) mmol/L Carbon Dioxide 26 (22-32) mmol/L BUN 20 (9-20) mg/dL Creatinine 0.53 L (0.66-1.25) mg/dL Estimated GFR > 60 (>60) mL/min BUN/Creatinine Ratio 37.7 H (6-22) Glucose 129 H D (80-110) mg/dL Lactate (0.7-2.1) mmol/L Calcium 8.4 (8.4-10.2) mg/dL Total Bilirubin (0.2-1.3) mg/dL AST (17-59) IU/L ALT (<50) IU/L Alkaline Phosphatase (38-126) U/L Total Creatine Kinase (55-170) U/L Troponin I (0.01-0.034) ng/mL Total Protein (6.3-8.2) g/dL Albumin (3.5-5.0) g/dL Globulin (1.7-4.1) g/dL Albumin/Globulin Ratio (1.0-2.8) Lipase (23-300) U/L Urine Color Yellow Urine Appearance Clear Urine pH 6.0 (4.5-8.0) Ur Specific Gentry 1.015 (1.000-1.035) Urine Protein Trace H (Negative) Urine Glucose (UA) Negative (Negative) g/dL Urine Ketones 1+ H (NEGATIVE) Urine Occult Blood Negative (Negative) Urine Nitrate Negative (Negative) Urine Bilirubin Negative (NEGATIVE) Urine Urobilinogen 0.2 (0.2) E.U./dL Ur Leukocyte Esterase Negative (NEGATIVE) Urine RBC None seen (0-5/HPF) Urine WBC 0-1/hpf (0-5/HPF) Ur Squamous Epith Cells 0-1 /hpf (0-5/HPF) Urine Bacteria None seen (None) Ur Culture Indicated? Cult not indicated Vol Urine Centrifuged 10ml (spun) Blood Type Antibody Screen Crossmatch 12/30/23 Range/Units 06:50 WBC (4.5-11.0) X10^3/uL RBC (4.5-5.9) X10^6/uL Hgb 6.5 L* (13.5-17.5) g/dL Hct 19.6 L* (41-53) % MCV (80-100) fL MCH (26-34) PG MCHC (30-36) % RDW (11.6-14.8) % Plt Count (150-400) X10^3/uL Neut % (Auto) (50-75) % Lymph % (Auto) (25-40) % [place] % (Auto) (3-14) % Eos % (Auto) (2-4) % Baso % (Auto) (0-2) % Neut # (Auto) (6985-1111) /uL Lymph # (Auto) (4424-4766) /uL [place] # (Auto) (0-900) /uL Eos # (Auto) (0-450) /uL Baso # (Auto) (0-100) /uL Platelet Estimate RBC Morphology Hypochromasia Anisocytosis Microcytosis Rouleaux Sodium (137-145) mmol/L Potassium (3.4-5.1) mmol/L Chloride (98-107) mmol/L Carbon Dioxide (22-32) mmol/L BUN (9-20) mg/dL Creatinine (0.66-1.25) mg/dL Estimated GFR (>60) mL/min BUN/Creatinine Ratio (6-22) Glucose (80-110) mg/dL Lactate (0.7-2.1) mmol/L Calcium (8.4-10.2) mg/dL Total Bilirubin (0.2-1.3) mg/dL AST (17-59) IU/L ALT (<50) IU/L Alkaline Phosphatase (38-126) U/L Total Creatine Kinase (55-170) U/L Troponin I (0.01-0.034) ng/mL Total Protein (6.3-8.2) g/dL Albumin (3.5-5.0) g/dL Globulin (1.7-4.1) g/dL Albumin/Globulin Ratio (1.0-2.8) Lipase (23-300) U/L Urine Color Urine Appearance Urine pH (4.5-8.0) Ur Specific [place] (1.000-1.035) Urine Protein (Negative) Urine Glucose (UA) (Negative) g/dL Urine Ketones (NEGATIVE) Urine Occult Blood (Negative) Urine Nitrate (Negative) Urine Bilirubin (NEGATIVE) Urine Urobilinogen (0.2) E.U./dL Ur Leukocyte Esterase (NEGATIVE) Urine RBC (0-5/HPF) Urine WBC (0-5/HPF) Ur Squamous Epith Cells (0-5/HPF) Urine Bacteria (None) Ur Culture Indicated? Vol Urine Centrifuged Blood Type Antibody Screen Crossmatch Point of Care Testing Stool Occult Blood Positive Imaging Data Chest x-ray: Radiologist's Impression: [address] [address] XRay Report Signed Patient: Lui Johnson MR#: [id number] : 1950 Acct:[id number] Age/Sex: 73 / M Date of Service: 12/28/23 Loc: ED Accession Number: [id number] Procedure: XR chest 1V Ordering Provider: Cr Walker MD PROCEDURE: XR CHEST 1V INDICATIONS: chest pain TECHNIQUE: One view of the chest was acquired. COMPARISON: [facility], CR, XR CHEST 1 VIEW, 10/10/2018, 12:16. [facility], CT, CT ABDOMEN PELVIS W CON, 12/16/2023, 13:38. [facility], CT, CT CHEST ABD PEL W CON, 03/16/2019, 10:49. (Additional prior imaging is not available for review from the archive at the time of this dictation.) FINDINGS: Surgical changes and devices: None. Lungs and pleura: On this semiupright portable chest examination, no large pneumothorax or large pleural effusions are seen. No focal infiltrates are seen. Mediastinum: Mediastinal contours appear normal. Heart size is normal. Bones and chest wall: This patient has known sclerotic metastases, which were not well seen on this plain film study. Mild dextroconvex scoliotic curvature is seen. Age-appropriate bony degenerative changes are seen. Overlying soft tissues appear unremarkable. IMPRESSION: Portable chest within normal limits for age. Dictated by: Santana Bruner M.D. on 12/28/2023 at 19:13 Approved by: Santana Bruner M.D. on 12/28/2023 at 19:16 ECG Data Attestation: I personally reviewed and interpreted this ECG as follows: Interpretation: Sinus tachycardia with rate 119, no obvious ST segment elevation or depression changes. TX 126, QRS 86, QTC 455. MDM Narrative Medical decision making narrative: 73-year-old male with history of remote prostate cancer surgery, more recently felt to have metastatic disease, recent hospitalization [facility], had 2 unit transfusion at that time, chemotherapy had been coordinated through [facility] in [place]. Noted by to have dark stools, somewhat cranberry in nature. Afebrile, sirs screen negative. No abdominal tenderness. Dark brown stool streaks in under garment, no black or red or maroon stool appearance. Stool sent, guaiac positive. Not enough sample for stool enteric pathogens studies. Hemoglobin 6.6 low, compared to 8.6 on 12/16/2023. Transfusion 2 units packed cells, consented, transfused. Repeat hemoglobin post transfusion pending. GFR favorable, CTA abdomen and pelvis GI bleeding protocol imaging requested. CT abdomen pelvis GI bleed protocol. Impressions: ?Extensive sclerotic and lytic appearing lesions throughout the axial and appendicular skeleton worrisome for metastatic disease. No evidence of colitis diverticulitis bowel obstruction or acute appendicitis. No CT findings of gastrointestinal hemorrhage. Incidental findings as detailed. ? Save teleradiology report Repeat hemoglobin 8.3 improved. However patient has now received 4 units packed cells in this month so far, without upper or lower endoscopy evaluation. We will reach out to [facility] gastroenterology, patient and agreeable, aware this might entail transfer 0500, case discussed with [facility] intake nursing. Await call back 0630, case discusssed with Oncology Dr Valentino, in agreement with need for endoscopy lower and/or upper, can accept to their facility to coordinate GI another consultations as needed. Await call back for likely timing of bed assignment. Could consider admission here if General surgery willing to perform endoscopic evaluations, no GI consultation available here. 0635, case discussed with local general surgeon Dr. Lazo who is willing to consult and perform endoscopies here, clear liquid diet for today, keep NPO tonight, he can scope tomorrow Saturday. Will consult hospitalist. 0700, case discussed with the oncoming ED shift Dr Sanchez, to coordinate possible admission here for lower/upper endoscopies by local surgeon Dr. Sanchez-patient signed out to me by Dr. Walker I have seen evaluated patient myself. Weak alert remains tachycardic but and patient say that his normal heart rate is 110-115. They are willing and agreed to stay for endoscopy. He has feeling a bit better now. Dr. Wilkerson updated patient's symptoms test results agrees with observation <Caryn Sanchez, DO - Last Filed: 12/29/23 08:41> Lab Data Labs: Lab Results 12/28/23 12/28/23 12/28/23 Range/Units 20:22 20:44 22:35 WBC 9.5 (4.5-11.0) X10^3/uL RBC 2.50 L (4.5-5.9) X10^6/uL Hgb 6.6 L* (13.5-17.5) g/dL Hct 20.4 L* (41-53) % MCV 81.3 (80-100) fL MCH 26.4 (26-34) PG MCHC 32.4 (30-36) % RDW 23.1 H (11.6-14.8) % Plt Count 415 H (150-400) X10^3/uL Neut % (Auto) 73.7 (50-75) % Lymph % (Auto) 17.9 L (25-40) % [place] % (Auto) 6.6 (3-14) % Eos % (Auto) 0.9 L (2-4) % Baso % (Auto) 0.9 (0-2) % Neut # (Auto) 7000 (1576-0118) /uL Lymph # (Auto) 1700 (9354-4737) /uL [place] # (Auto) 600 (0-900) /uL Eos # (Auto) 100 (0-450) /uL Baso # (Auto) 100 (0-100) /uL Platelet Estimate RBC Morphology Not Reportable Hypochromasia Anisocytosis Microcytosis Rouleaux 1+ H Sodium 129 L (137-145) mmol/L Potassium 4.5 (3.4-5.1) mmol/L Chloride 96 L (98-107) mmol/L Carbon Dioxide 25 (22-32) mmol/L BUN 36 H (9-20) mg/dL Creatinine 0.59 L (0.66-1.25) mg/dL Estimated GFR > 60 (>60) mL/min BUN/Creatinine Ratio 61.0 H (6-22) Glucose 236 H (80-110) mg/dL Lactate 3.1 H 1.3 (0.7-2.1) mmol/L Calcium 8.6 (8.4-10.2) mg/dL Total Bilirubin 0.4 (0.2-1.3) mg/dL AST 23 (17-59) IU/L ALT 13 (<50) IU/L Alkaline Phosphatase 340 H (38-126) U/L Total Creatine Kinase 29 L (55-170) U/L Troponin I < 0.012 (0.01-0.034) ng/mL Total Protein 5.9 L (6.3-8.2) g/dL Albumin 2.8 L (3.5-5.0) g/dL Globulin 3.1 (1.7-4.1) g/dL Albumin/Globulin Ratio 0.9 L (1.0-2.8) Lipase 42 (23-300) U/L Urine Color Urine Appearance Urine pH (4.5-8.0) Ur Specific [place] (1.000-1.035) Urine Protein (Negative) Urine Glucose (UA) (Negative) g/dL Urine Ketones (NEGATIVE) Urine Occult Blood (Negative) Urine Nitrate (Negative) Urine Bilirubin (NEGATIVE) Urine Urobilinogen (0.2) E.U./dL Ur Leukocyte Esterase (NEGATIVE) Urine RBC (0-5/HPF) Urine WBC (0-5/HPF) Ur Squamous Epith Cells (0-5/HPF) Urine Bacteria (None) Ur Culture Indicated? Vol Urine Centrifuged Blood Type B Positive Antibody Screen Negative Crossmatch See Detail 12/29/23 12/29/23 12/30/23 Range/Units 01:55 09:47 04:50 WBC 7.7 (4.5-11.0) X10^3/uL RBC 2.49 L (4.5-5.9) X10^6/uL Hgb 8.3 L 6.7 L* (13.5-17.5) g/dL Hct 25.0 L 19.9 L* (41-53) % MCV 79.8 L (80-100) fL MCH 26.9 (26-34) PG MCHC 33.7 (30-36) % RDW 20.9 H (11.6-14.8) % Plt Count 299 (150-400) X10^3/uL Neut % (Auto) 74.3 (50-75) % Lymph % (Auto) 17.4 L (25-40) % [place] % (Auto) 6.0 (3-14) % Eos % (Auto) 1.3 L (2-4) % Baso % (Auto) 1.0 (0-2) % Neut # (Auto) 5800 (2835-0475) /uL Lymph # (Auto) 1300 (9594-4342) /uL [place] # (Auto) 500 (0-900) /uL Eos # (Auto) 100 (0-450) /uL Baso # (Auto) 100 (0-100) /uL Platelet Estimate Adequate on smear RBC Morphology See below Hypochromasia 2+ H Anisocytosis 2+ H Microcytosis 2+ H Rouleaux Sodium 134 L (137-145) mmol/L Potassium 3.3 L D (3.4-5.1) mmol/L Chloride 105 (98-107) mmol/L Carbon Dioxide 26 (22-32) mmol/L BUN 20 (9-20) mg/dL Creatinine 0.53 L (0.66-1.25) mg/dL Estimated GFR > 60 (>60) mL/min BUN/Creatinine Ratio 37.7 H (6-22) Glucose 129 H D (80-110) mg/dL Lactate (0.7-2.1) mmol/L Calcium 8.4 (8.4-10.2) mg/dL Total Bilirubin (0.2-1.3) mg/dL AST (17-59) IU/L ALT (<50) IU/L Alkaline Phosphatase (38-126) U/L Total Creatine Kinase (55-170) U/L Troponin I (0.01-0.034) ng/mL Total Protein (6.3-8.2) g/dL Albumin (3.5-5.0) g/dL Globulin (1.7-4.1) g/dL Albumin/Globulin Ratio (1.0-2.8) Lipase (23-300) U/L Urine Color Yellow Urine Appearance Clear Urine pH 6.0 (4.5-8.0) Ur Specific [place] 1.015 (1.000-1.035) Urine Protein Trace H (Negative) Urine Glucose (UA) Negative (Negative) g/dL Urine Ketones 1+ H (NEGATIVE) Urine Occult Blood Negative (Negative) Urine Nitrate Negative (Negative) Urine Bilirubin Negative (NEGATIVE) Urine Urobilinogen 0.2 (0.2) E.U./dL Ur Leukocyte Esterase Negative (NEGATIVE) Urine RBC None seen (0-5/HPF) Urine WBC 0-1/hpf (0-5/HPF) Ur Squamous Epith Cells 0-1 /hpf (0-5/HPF) Urine Bacteria None seen (None) Ur Culture Indicated? Cult not indicated Vol Urine Centrifuged 10ml (spun) Blood Type Antibody Screen Crossmatch 12/30/23 Range/Units 06:50 WBC (4.5-11.0) X10^3/uL RBC (4.5-5.9) X10^6/uL Hgb 6.5 L* (13.5-17.5) g/dL Hct 19.6 L* (41-53) % MCV (80-100) fL MCH (26-34) PG MCHC (30-36) % RDW (11.6-14.8) % Plt Count (150-400) X10^3/uL Neut % (Auto) (50-75) % Lymph % (Auto) (25-40) % [place] % (Auto) (3-14) % Eos % (Auto) (2-4) % Baso % (Auto) (0-2) % Neut # (Auto) (3613-8908) /uL Lymph # (Auto) (8337-6017) /uL [place] # (Auto) (0-900) /uL Eos # (Auto) (0-450) /uL Baso # (Auto) (0-100) /uL Platelet Estimate RBC Morphology Hypochromasia Anisocytosis Microcytosis Rou[place]aux Sodium (137-145) mmol/L Potassium (3.4-5.1) mmol/L Chloride (98-107) mmol/L Carbon Dioxide (22-32) mmol/L BUN (9-20) mg/dL Creatinine (0.66-1.25) mg/dL Estimated GFR (>60) mL/min BUN/Creatinine Ratio (6-22) Glucose (80-110) mg/dL Lactate (0.7-2.1) mmol/L Calcium (8.4-10.2) mg/dL Total Bilirubin (0.2-1.3) mg/dL AST (17-59) IU/L ALT (<50) IU/L Alkaline Phosphatase (38-126) U/L Total Creatine Kinase (55-170) U/L Troponin I (0.01-0.034) ng/mL Total Protein (6.3-8.2) g/dL Albumin (3.5-5.0) g/dL Globulin (1.7-4.1) g/dL Albumin/Globulin Ratio (1.0-2.8) Lipase (23-300) U/L Urine Color Urine Appearance Urine pH (4.5-8.0) Ur Specific [place] (1.000-1.035) Urine Protein (Negative) Urine Glucose (UA) (Negative) g/dL Urine Ketones (NEGATIVE) Urine Occult Blood (Negative) Urine Nitrate (Negative) Urine Bilirubin (NEGATIVE) Urine Urobilinogen (0.2) E.U./dL Ur Leukocyte Esterase (NEGATIVE) Urine RBC (0-5/HPF) Urine WBC (0-5/HPF) Ur Squamous Epith Cells (0-5/HPF) Urine Bacteria (None) Ur Culture Indicated? Vol Urine Centrifuged Blood Type Antibody Screen Crossmatch Point of Care Testing Stool Occult Blood Positive MDM Narrative Medical decision making narrative: 73-year-old male with history of remote prostate cancer surgery, more recently felt to have metastatic disease, recent hospitalization [facility], had 2 unit transfusion at that time, chemotherapy had been coordinated through [facility] in [place]. Noted by to have dark stools, somewhat cranberry in nature. Afebrile, sirs screen negative. No abdominal tenderness. Dark brown stool streaks in under garment, no black or red or maroon stool appearance. Stool sent, guaiac positive. Not enough sample for stool enteric pathogens studies. Hemoglobin 6.6 low, compared to 8.6 on 12/16/2023. Transfusion 2 units packed cells, consented, transfused. Repeat hemoglobin post transfusion pending. GFR favorable, CTA abdomen and pelvis GI bleeding protocol imaging requested. CT abdomen pelvis GI bleed protocol. Impressions: ?Extensive sclerotic and lytic appearing lesions throughout the axial and appendicular skeleton worrisome for metastatic disease. No evidence of colitis diverticulitis bowel obstruction or acute appendicitis. No CT findings of gastrointestinal hemorrhage. Incidental findings as detailed. ? Save teleradiology report Repeat hemoglobin 8.3 improved. However patient has now received 4 units packed cells in this month so far, without upper or lower endoscopy evaluation. We will reach out to [facility] gastroenterology, patient and agreeable, aware this might entail transfer 0500, case discussed with [facility] intake nursing. Await call back 0630, case discusssed with Oncology Dr Valentino, in agreement with need for endoscopy lower and/or upper, can accept to their facility to coordinate GI another consultations as needed. Await call back for likely timing of bed assignment. Could consider admission here if General surgery willing to perform endoscopic evaluations, no GI consultation available here. 0635, case discussed with local general surgeon Dr. Lazo who is willing to consult and perform endoscopies here, clear liquid diet for today, keep NPO tonight, he can scope tomorrow Saturday. Will consult hospitalist. 0700, case discussed with the oncoming ED shift Dr Sanchez, to coordinate admission here for lower/upper endoscopies with surgery Dr. Sanchez-patient signed out to me by Dr. Walker I have seen evaluated patient myself. Weak alert remains tachycardic but and patient say that his normal heart rate is 110-115. They are willing and agreed to stay for endoscopy. He has feeling a bit better now. Dr. Wilkerson updated patient's symptoms test results agrees with observation Discharge Plan Departure Patient Disposition: Admitted as Observation Clinical Impression: Anemia Admit Date/Time: 12/30/23 10:32 Admit Provider: Kashif Wilkerson V
[2023-12-28 20:43] LABS: Rouleaux 1+
[2023-12-28 20:45] LABS: Lactate (Lactic Acid) 3.1 mmol/L (0.7-2.1)
[2023-12-28 20:46] LABS: Alanine Aminotransferase 13 IU/L (<50); Albumin 2.8 g/dL (3.5-5.0); Albumin Globulin Ratio 0.9 (1.0-2.8); Alkaline Phosphatase 340 U/L (38-126); Aspartate Aminotransferase 23 IU/L (17-59); Bilirubin Total 0.4 mg/dL (0.2-1.3); Blood Urea Nitrogen 36 mg/dL (9-20); Calcium 8.6 mg/dL (8.4-10.2); Carbon Dioxide 25 mmol/L (22-32); Chloride 96 mmol/L (98-107); Creatine Kinase 29 U/L (55-170); Estimated Glomerular Filt Rate > 60 mL/min (>60); Globulin 3.1 g/dL (1.7-4.1); Glucose 236 mg/dL (80-110); HEMOLYSIS < 15 (0-50); Lipase 42 U/L (23-300); Potassium 4.5 mmol/L (3.4-5.1); Sodium 129 mmol/L (137-145); Total Protein 5.9 g/dL (6.3-8.2)
[2023-12-28 20:58] LABS: Troponin I < 0.012 ng/mL (0.01-0.034)
[2023-12-28] MEDS: SODIUM CHLORIDE 0.9% 500 ML 1000 ML IV (21:38)
[2023-12-28 22:06] LABS: Reflexed Lactate in 2 Hours Y
[2023-12-28 22:53] LABS: Lactate 2HR (Lactic Acid Rflx) 1.3 mmol/L (0.7-2.1)
[2023-12-29] VITALS (42 sets, daily range): BP systolic 117–145; BP diastolic 55–84; PULSE 105–125; RESP 15–116; TEMP 35.9–37.2; O2SAT 97–100; BMI 17.6
[2023-12-29] MEDS: ACETAMINOPHEN 325 MG TABLET 650 MG PO ×4 (01:23→20:44)
--- NOTE | 2023-12-29 02:07 | DI.CT.S_ITS ---
PROCEDURE: CT ANGIO ABD/PEL GI BLEED INDICATIONS: GI bleed TECHNIQUE: After the administration of intravenous contrast, 2.5 mm thick sections acquired from the diaphragm to the symphysis. 10 mm maximum-intensity projection (MIP) reformats were then acquired. For radiation dose reduction, the following was used: automated exposure control. COMPARISON: None. FINDINGS: Lower thorax: Small left pleural effusion Heart size normal. No hiatal hernia. Liver: Normal in size and attenuation. No contour deformity present. Biliary system: No calcified cholelithiasis or pericholecystic inflammation. No intra or extrahepatic bile duct dilatation. Pancreas: Unremarkable without mass or inflammation evident. Spleen: Normal in size and density. Adrenals: Normal morphology and density. Reproductive system: Prostatectomy. Urinary system: Normal renal size and attenuation. Small cysts noted. No renal calculi, hydronephrosis, or solid mass present. Urinary bladder unremarkable. Gastrointestinal system: The bowel is unremarkable without evidence of bowel obstruction or inflammation. The stomach appears unremarkable. Appendix: No findings to suggest acute appendicitis. Peritoneal spaces: No mesenteric or retroperitoneal adenopathy. No free air. No free fluid. Vasculature: [id number] calcified noncalcified atherosclerotic plaque in the abdominal aorta without evidence of significant stenosis or aneurysm. Origins of the SMA, celiac, [place] and both renal arteries are widely patent without stenosis. No contrast extravasation present to suggest active bleeding throughout the exam. Abdominal wall: Abdominal wall intact without evidence of ventral or inguinal hernias. 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 on 12/29/2023 at 9:14
[2023-12-29 03:37] LABS: Hemoglobin 8.3 g/dL (13.5-17.5)
[2023-12-29] MEDS: PANTOPRAZOLE 40 MG VIAL 80 MG IV (09:23)
[2023-12-29 09:56] LABS: Appearance Urine UA CLEAR; Bilirubin Urine UA NEGATIVE (NEGATIVE); Color Urine UA YELLOW; Glucose Urine UA NEGATIVE (Negative); Ketones Urine UA 1+ (NEGATIVE); Leukocyte Esterase Urine UA NEGATIVE (NEGATIVE); Nitrite Urine UA NEGATIVE (Negative); Occult Blood Urine UA NEGATIVE (Negative); Protein Urine UA TRACE (Negative); Specific Gravity Urine UA 1.015 (1.000-1.035); Urobilinogen Urine UA 0.2 E.U./dL (0.2)
[2023-12-29 10:02] LABS: Urine Volume 10mL (spun)
[2023-12-29 10:03] LABS: Bacteria Urine None Seen; Culture Indicated Urine Cult Not Indicated; RBC Urine None Seen (0-5/HPF); Squamous Epithelial Cell Urine 0-1 /HPF (0-5/HPF); WBC Urine 0-1/HPF (0-5/HPF)
--- NOTE | 2023-12-29 10:13 | PM.CN ---
History of Present Illness Consult details Date Patient Seen: 12/29/23 Time Patient Seen: 10:13 Chief complaint: blood in stool, being treated for cancer Meds Home Medications and Allergies Home Medications Medication Instructions Recorded Confirmed Type ASPIRIN (#ASPIR 81) ##0 04/07/11 History simvastatin 40 mg tablet (Zocor) ##0 04/07/11 History Fish Oil (Fish Oil 500 MG Softgel) 1,000 mg PO QDAY ##0 09/05/11 History [MENS MULTIPLE VIT.] ##0 09/05/11 History [VIT C ] 1,000 mg PO QDAY ##0 09/05/11 History [VIT D3 ] ##0 09/05/11 History felodipine 5 mg tablet,extended 10 mg PO QDAY ##0 09/05/11 History release 24 hr glimepiride 4 mg tablet (Amaryl) 4 mg PO QDAY ##0 09/05/11 History hydrochlorothiazide 25 mg tablet 25 mg PO QDAY ##0 09/05/11 History lisinopril 20 mg tablet 20 mg PO QDAY ##0 09/05/11 History metformin 500 mg tablet,extended 1,000 mg PO QDAY ##0 09/05/11 History release 24 hr (Glucophage XR) lactulose 20 gram/30 mL oral 20 g (30 mL) PO BID PRN 12/16/23 Rx solution constipation #1,200 mL Allergies Allergy/AdvReac Type Severity Reaction Status Date / Time No Known Drug Allergies Allergy Verified 12/28/23 19:46 Review of Systems Review of Systems ROS: Yes All systems reviewed with the patient and are negative except as otherwise documented Exam Vital Signs (past 8 hours): - 12/29/23 02:15 12/29/23 02:15 12/29/23 02:30 Pulse Rate 109 H Respiratory Rate 16 Blood Pressure 131/62 118/55 L Pulse Oximetry 98 Oxygen Delivery Method Room Air 12/29/23 02:30 12/29/23 02:56 12/29/23 02:56 Pulse Rate 110 H 113 H Respiratory Rate 16 16 Blood Pressure 132/63 Pulse Oximetry 98 100 Oxygen Delivery Method 12/29/23 03:00 12/29/23 03:00 12/29/23 03:15 Pulse Rate 106 H Respiratory Rate 16 Blood Pressure 120/59 L 119/59 L Pulse Oximetry 98 Oxygen Delivery Method 12/29/23 03:15 12/29/23 03:30 12/29/23 03:30 Pulse Rate 105 H 108 H Respiratory Rate 16 15 Blood Pressure 117/59 L Pulse Oximetry 98 98 Oxygen Delivery Method 12/29/23 03:45 12/29/23 03:45 12/29/23 04:00 Pulse Rate 113 H 111 H Respiratory Rate 18 20 Blood Pressure 128/62 Pulse Oximetry 98 98 Oxygen Delivery Method 12/29/23 04:00 12/29/23 04:15 12/29/23 04:15 Pulse Rate 113 H Respiratory Rate 20 Blood Pressure 121/60 124/58 L Pulse Oximetry 98 Oxygen Delivery Method 12/29/23 04:30 12/29/23 04:30 12/29/23 04:45 Pulse Rate 112 H 106 H Respiratory Rate 21 17 Blood Pressure 126/58 L Pulse Oximetry 98 98 Oxygen Delivery Method 12/29/23 04:45 12/29/23 05:00 12/29/23 05:00 Pulse Rate 110 H Respiratory Rate 17 Blood Pressure 124/58 L 127/60 Pulse Oximetry 98 Oxygen Delivery Method 12/29/23 05:15 12/29/23 05:15 12/29/23 05:30 Pulse Rate 109 H 116 H Respiratory Rate 16 17 Blood Pressure 134/63 Pulse Oximetry 98 98 Oxygen Delivery Method 12/29/23 05:30 12/29/23 05:45 12/29/23 05:45 Pulse Rate 117 H Respiratory Rate 19 Blood Pressure 137/63 135/65 Pulse Oximetry 98 Oxygen Delivery Method 12/29/23 06:00 12/29/23 06:00 12/29/23 06:15 Pulse Rate 115 H 113 H Respiratory Rate 19 18 Blood Pressure 136/63 Pulse Oximetry 98 98 Oxygen Delivery Method 12/29/23 06:15 12/29/23 07:00 12/29/23 07:15 Pulse Rate 113 H Respiratory Rate 17 Blood Pressure 145/68 H 118/60 Pulse Oximetry 97 Oxygen Delivery Method Room Air 12/29/23 07:15 12/29/23 07:30 12/29/23 07:30 Pulse Rate 113 H Respiratory Rate 17 Blood Pressure 141/63 H 137/64 Pulse Oximetry 97 Oxygen Delivery Method 12/29/23 07:45 12/29/23 07:45 12/29/23 08:00 Pulse Rate 109 H 125 H Respiratory Rate 15 22 Blood Pressure 134/64 Pulse Oximetry 98 98 Oxygen Delivery Method 12/29/23 08:00 12/29/23 08:15 12/29/23 08:15 Pulse Rate 117 H Respiratory Rate 20 Blood Pressure 136/66 125/58 L Pulse Oximetry 98 Oxygen Delivery Method 12/29/23 08:30 12/29/23 08:30 12/29/23 08:45 Pulse Rate 115 H 118 H Respiratory Rate 20 20 Blood Pressure 124/61 Pulse Oximetry 97 97 Oxygen Delivery Method 12/29/23 08:45 12/29/23 09:00 12/29/23 09:00 Pulse Rate 115 H Respiratory Rate 20 Blood Pressure 127/67 123/62 Pulse Oximetry 98 Oxygen Delivery Method 12/29/23 09:15 12/29/23 09:15 12/29/23 09:30 Pulse Rate 120 H 125 H Respiratory Rate 17 24 Blood Pressure 119/55 L Pulse Oximetry 97 98 Oxygen Delivery Method Room Air 12/29/23 09:30 Pulse Rate Respiratory Rate Blood Pressure 126/60 Pulse Oximetry Oxygen Delivery Method Oxygen Delivery Method Room Air Narrative Exam Narrative: NO bright red blood in stools, but [place] Positive. Objective Labs 12/29/23 01:55 12/28/23 20:22 Labs: Laboratory Results - last 24 hr 12/28/23 12/28/23 12/28/23 20:22 20:44 22:35 WBC 9.5 RBC 2.50 L Hgb 6.6 L* Hct 20.4 L* MCV 81.3 MCH 26.4 MCHC 32.4 RDW 23.1 H Plt Count 415 H Neut % (Auto) 73.7 Lymph % (Auto) 17.9 L [place] % (Auto) 6.6 Eos % (Auto) 0.9 L Baso % (Auto) 0.9 Neut # (Auto) 7000 Lymph # (Auto) 1700 [place] # (Auto) 600 Eos # (Auto) 100 Baso # (Auto) 100 RBC Morphology Not Reportable Rouleaux 1+ H Sodium 129 L Potassium 4.5 Chloride 96 L Carbon Dioxide 25 BUN 36 H Creatinine 0.59 L Estimated GFR > 60 BUN/Creatinine Ratio 61.0 H Glucose 236 H Lactate 3.1 H 1.3 Calcium 8.6 Total Bilirubin 0.4 AST 23 ALT 13 Alkaline Phosphatase 340 H Total Creatine Kinase 29 L Troponin I < 0.012 Total Protein 5.9 L Albumin 2.8 L Globulin 3.1 Albumin/Globulin Ratio 0.9 L Lipase 42 Urine Color Urine Appearance Urine pH Ur Specific [place] Urine Protein Urine Glucose (UA) Urine Ketones Urine Occult Blood Urine Nitrate Urine Bilirubin Urine Urobilinogen Ur Leukocyte Esterase Urine RBC Urine WBC Ur Squamous Epith Cells Urine Bacteria Ur Culture Indicated? Vol Urine Centrifuged Blood Type B Positive Antibody Screen Negative Crossmatch See Detail 12/29/23 12/29/23 01:55 09:47 WBC RBC Hgb 8.3 L Hct 25.0 L MCV MCH MCHC RDW Plt Count Neut % (Auto) Lymph % (Auto) [place] % (Auto) Eos % (Auto) Baso % (Auto) Neut # (Auto) Lymph # (Auto) [place] # (Auto) Eos # (Auto) Baso # (Auto) RBC Morphology Rouleaux Sodium Potassium Chloride Carbon Dioxide BUN Creatinine Estimated GFR BUN/Creatinine Ratio Glucose Lactate Calcium Total Bilirubin AST ALT Alkaline Phosphatase Total Creatine Kinase Troponin I Total Protein Albumin Globulin Albumin/Globulin Ratio Lipase Urine Color Yellow Urine Appearance Clear Urine pH 6.0 Ur Specific [place] 1.015 Urine Protein Trace H Urine Glucose (UA) Negative Urine Ketones 1+ H Urine Occult Blood Negative Urine Nitrate Negative Urine Bilirubin Negative Urine Urobilinogen 0.2 Ur Leukocyte Esterase Negative Urine RBC None seen Urine WBC 0-1/hpf Ur Squamous Epith Cells 0-1 /hpf Urine Bacteria None seen Ur Culture Indicated? Cult not indicated Vol Urine Centrifuged 10ml (spun) Blood Type Antibody Screen Crossmatch [facility] Tobacco & Substance Use Smoking Status: Never smoker Diet and Exercise eating out: 1-3 times/week Type(s) of exercise: walking Assessment & Plan Assessment and plan (1) Anemia: Problem details: Anemia, and Positive [place] stools, needs endoscopy, will bowel prep him today, and do upper and lower endoscopies tomorrow. Status: Acute Time-Based Coding :: [TOTAL MINUTES] spent with patient and on the chart (including review of chart, obtaining history, exam, reviewing outside data, placing orders, documenting exam and treatment plan, and counseling patient) on [DATE].
[2023-12-29] MEDS: SODIUM CHLORIDE 0.9% 1,000 ML 150 ML IV ×3 (10:32→22:59)
[2023-12-29] MEDS: PEG3350/SOD SULF,BICARB,CL/KCL 4,000 ML SOLUTION 4000 ML PO (11:20)
--- NOTE | 2023-12-29 12:27 | P.HP_ITS ---
History of Present Illness History of Present Illness Date Patient Seen: 12/29/23 Time Patient Seen: 13:00 Chief complaint: blood in stool, being treated for cancer Narrative: 75-year-old man under the care of Dr. Melissa Sterling of the [facility] for prostate cancer, originally diagnosed in 2011, with bone and brain metastasis recurrent in 2019, undergoing recent resected brain surgery in October and gamma knife therapy, has experienced recent anemia. He was transfused 2 units of packed red blood cells on recent hospitalization 12/17/2023 through at the [facility]. Since discharge he has had dark stools, cranberry in appearance, and increasing progressive weakness. He has no recent infectious symptoms, chest pain, breathing problems, nausea, vomiting, diarrhea, falls or injuries. He is admitted for blood transfusion and endoscopic evaluation. He has not recently received chemotherapy but is being considered for additional chemotherapeutic options. Family also has questions about hospice options. He has diabetes on Lantus insulin 12 units nightly, hypertension, and painful diabetic neuropathy as his other major health concerns. [facility] Social History household members: spouse Smoking Status: Never smoker alcohol intake: never eating out: 1-3 times/week Type(s) of exercise: walking Meds Home Medications and Allergies Home Medications Medication Instructions Recorded Confirmed Type ASPIRIN (#ASPIR 81) 81 mg PO DAILY ##0 04/07/11 12/29/23 History Fish Oil (Fish Oil 500 MG Softgel) 2,000 mg PO QDAY ##0 09/05/11 12/29/23 History [MENS MULTIPLE VIT.] 1 tab PO DAILY ##0 09/05/11 12/29/23 History metformin 500 mg tablet,extended 1,000 mg PO BID ##0 09/05/11 12/29/23 History release 24 hr (Glucophage XR) acetaminophen 500 mg tablet 1,000 mg PO Q6H PRN Pain (Scale 12/29/23 12/29/23 History (Tylenol Extra Strength) Score 4-6) bisacodyl 10 mg rectal suppository 10 mg AR DAILY PRN Constipation 12/29/23 12/29/23 History calcium citrate 200 mg 1 tab PO DAILY 12/29/23 12/29/23 History calcium-vitamin D3 3.125 mcg (125 unit) tablet duloxetine 60 mg capsule,delayed 60 mg PO DAILY 12/29/23 12/29/23 History release insulin glargine 100 unit/mL (3 12 unit SUBCUT BEDTIME 12/29/23 12/29/23 History mL) subcutaneous pen (Lantus Solostar U-100 Insulin) lisinopril 20 mg tablet 20 mg PO DAILY PRN Hypertension 12/29/23 12/29/23 History magnesium oxide 400 mg PO DAILY 12/29/23 12/29/23 History mirtazapine 7.5 mg tablet 7.5 mg PO ONCE PM 12/29/23 12/29/23 History polyethylene glycol 3350 17 gram 17 g PO DAILY PRN Constipation 12/29/23 12/29/23 History oral powder packet (Miralax) pregabalin 82.5 mg tablet, 82.5 mg PO BEDTIME 12/29/23 12/29/23 History extended release 24 hr Allergies Allergy/AdvReac Type Severity Reaction Status Date / Time No Known Drug Allergies Allergy Verified 12/28/23 19:46 Review of Systems Review of Systems ROS: Yes All systems reviewed with the patient and are negative except as otherwise documented Exam Vital Signs (past 8 hours): - 12/29/23 04:30 12/29/23 04:30 12/29/23 04:45 Pulse Rate 112 H 106 H Respiratory Rate 21 17 Blood Pressure 126/58 L Pulse Oximetry 98 98 Oxygen Delivery Method 12/29/23 04:45 12/29/23 05:00 12/29/23 05:00 Pulse Rate 110 H Respiratory Rate 17 Blood Pressure 124/58 L 127/60 Pulse Oximetry 98 Oxygen Delivery Method 12/29/23 05:15 12/29/23 05:15 12/29/23 05:30 Pulse Rate 109 H 116 H Respiratory Rate 16 17 Blood Pressure 134/63 Pulse Oximetry 98 98 Oxygen Delivery Method 12/29/23 05:30 12/29/23 05:45 12/29/23 05:45 Pulse Rate 117 H Respiratory Rate 19 Blood Pressure 137/63 135/65 Pulse Oximetry 98 Oxygen Delivery Method 12/29/23 06:00 12/29/23 06:00 12/29/23 06:15 Pulse Rate 115 H 113 H Respiratory Rate 19 18 Blood Pressure 136/63 Pulse Oximetry 98 98 Oxygen Delivery Method 12/29/23 06:15 12/29/23 07:00 12/29/23 07:15 Pulse Rate 113 H Respiratory Rate 17 Blood Pressure 145/68 H 118/60 Pulse Oximetry 97 Oxygen Delivery Method Room Air 12/29/23 07:15 12/29/23 07:30 12/29/23 07:30 Pulse Rate 113 H Respiratory Rate 17 Blood Pressure 141/63 H 137/64 Pulse Oximetry 97 Oxygen Delivery Method 12/29/23 07:45 12/29/23 07:45 12/29/23 08:00 Pulse Rate 109 H 125 H Respiratory Rate 15 22 Blood Pressure 134/64 Pulse Oximetry 98 98 Oxygen Delivery Method 12/29/23 08:00 12/29/23 08:15 12/29/23 08:15 Pulse Rate 117 H Respiratory Rate 20 Blood Pressure 136/66 125/58 L Pulse Oximetry 98 Oxygen Delivery Method 12/29/23 08:30 12/29/23 08:30 12/29/23 08:45 Pulse Rate 115 H 118 H Respiratory Rate 20 20 Blood Pressure 124/61 Pulse Oximetry 97 97 Oxygen Delivery Method 12/29/23 08:45 12/29/23 09:00 12/29/23 09:00 Pulse Rate 115 H Respiratory Rate 20 Blood Pressure 127/67 123/62 Pulse Oximetry 98 Oxygen Delivery Method 12/29/23 09:15 12/29/23 09:15 12/29/23 09:30 Pulse Rate 120 H 125 H Respiratory Rate 17 24 Blood Pressure 119/55 L Pulse Oximetry 97 98 Oxygen Delivery Method Room Air 12/29/23 09:30 Pulse Rate Respiratory Rate Blood Pressure 126/60 Pulse Oximetry Oxygen Delivery Method Oxygen Delivery Method Room Air Narrative Exam Narrative: GENERAL: This is a thin, frail appearing cachectic male in no apparent distress. HEAD: Atraumatic. Normocephalic. No temporal or scalp tenderness. EYES: Pupils equal round and reactive. Extraocular motions intact. No scleral icterus. No injection or drainage. ENT: Mucous membranes pink and moist. NECK: Trachea midline. No JVD, bruits or lymphadenopathy. Supple, nontender, no meningeal signs. CARDIOVASCULAR: Regular rate and rhythm without murmurs, gallops, or rubs. RESPIRATORY: Clear to auscultation. GASTROINTESTINAL: Abdomen soft, non-tender, nondistended. EXTREMITIES: Trace ankle edema. BACK: Nontender without deformity or crepitance. No flank tenderness. NEUROLOGIC: Alert, oriented, speech fluent, full upper and lower motor strength, no focal deficits evident. DERMATOLOGIC: No rashes or skin lesions. Objective Labs 12/29/23 01:55 12/28/23 20:22 Labs: Laboratory Results - last 24 hr 12/28/23 12/28/23 12/28/23 20:22 20:44 22:35 WBC 9.5 RBC 2.50 L Hgb 6.6 L* Hct 20.4 L* MCV 81.3 MCH 26.4 MCHC 32.4 RDW 23.1 H Plt Count 415 H Neut % (Auto) 73.7 Lymph % (Auto) 17.9 L [place] % (Auto) 6.6 Eos % (Auto) 0.9 L Baso % (Auto) 0.9 Neut # (Auto) 7000 Lymph # (Auto) 1700 [place] # (Auto) 600 Eos # (Auto) 100 Baso # (Auto) 100 RBC Morphology Not Reportable Rouleaux 1+ H Sodium 129 L Potassium 4.5 Chloride 96 L Carbon Dioxide 25 BUN 36 H Creatinine 0.59 L Estimated GFR > 60 BUN/Creatinine Ratio 61.0 H Glucose 236 H Lactate 3.1 H 1.3 Calcium 8.6 Total Bilirubin 0.4 AST 23 ALT 13 Alkaline Phosphatase 340 H Total Creatine Kinase 29 L Troponin I < 0.012 Total Protein 5.9 L Albumin 2.8 L Globulin 3.1 Albumin/Globulin Ratio 0.9 L Lipase 42 Urine Color Urine Appearance Urine pH Ur Specific [place] Urine Protein Urine Glucose (UA) Urine Ketones Urine Occult Blood Urine Nitrate Urine Bilirubin Urine Urobilinogen Ur Leukocyte Esterase Urine RBC Urine WBC Ur Squamous Epith Cells Urine Bacteria Ur Culture Indicated? Vol Urine Centrifuged Blood Type B Positive Antibody Screen Negative Crossmatch See Detail 12/29/23 12/29/23 01:55 09:47 WBC RBC Hgb 8.3 L Hct 25.0 L MCV MCH MCHC RDW Plt Count Neut % (Auto) Lymph % (Auto) [place] % (Auto) Eos % (Auto) Baso % (Auto) Neut # (Auto) Lymph # (Auto) [place] # (Auto) Eos # (Auto) Baso # (Auto) RBC Morphology Rouleaux Sodium Potassium Chloride Carbon Dioxide BUN Creatinine Estimated GFR BUN/Creatinine Ratio Glucose Lactate Calcium Total Bilirubin AST ALT Alkaline Phosphatase Total Creatine Kinase Troponin I Total Protein Albumin Globulin Albumin/Globulin Ratio Lipase Urine Color Yellow Urine Appearance Clear Urine pH 6.0 Ur Specific [place] 1.015 Urine Protein Trace H Urine Glucose (UA) Negative Urine Ketones 1+ H Urine Occult Blood Negative Urine Nitrate Negative Urine Bilirubin Negative Urine Urobilinogen 0.2 Ur Leukocyte Esterase Negative Urine RBC None seen Urine WBC 0-1/hpf Ur Squamous Epith Cells 0-1 /hpf Urine Bacteria None seen Ur Culture Indicated? Cult not indicated Vol Urine Centrifuged 10ml (spun) Blood Type Antibody Screen Crossmatch Assessment & Plan Assessment & Plan narrative: 1. Anemia, likely due to gastrointestinal bleeding. Transfuse 2 units of packed red blood cells. Follow serial hematocrits. Anticipate upper endoscopy and colonoscopy tomorrow per surgery. Bowel prep today. Hold aspirin. 2. 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 Management per [facility]. He has not recently received chemotherapy. 3. Diabetes mellitus, type 2. Continue insulin at 50% dosing with sliding scale coverage. Hold metformin. 4. Hypertension. Monitor off therapy at this point. 5. Painful diabetic neuropathy. Continue routine medication. 6. Depression. Continue mirtazapine. 7. Severe protein calorie malnutrition. Consult dietary. 8. DVT prophylaxis: Sequential compression devices. Relation contraindicated. 9. Code status: Do not resuscitate. The patient completes a POLST form, selecting limited interventions in part be. He otherwise wishes full treatment for cancer and GI bleeding. This is discussed in detail with his , durable power of family law attorney and surrogate decision maker Racheal Gil. Plan: -admit to observation -transfuse 2 units packed red blood cells -IV hydration -bowel prep -endoscopy tomorrow for surgery -50% dosing of Lantus until after endoscopy (6 units nightly) -continue routine Lyrica for neuropathy -hold lisinopril at this point until after endoscopy and stable -sequential compression devices -do not resuscitate code status Quality VTE Deep Vein Thrombosis/Pulmonary Embolism Present on Admission: No MIPS - Admit I confirm the patient?s Advance Care Plan is present, Code status is documented, Surrogate decision maker is in patient?s record [If Yes, STOP here]: Yes MIPS - Meds 'Current medications' to include all prescriptions, [id number] products, herbals, cannabis/cannabidiol products, and vitamin/mineral/dietary (nutritional) supplements. I have utilized all available resources to obtain, update, or review the patient?s current medications. [If Yes, STOP here]: Yes PROFEE Charge Codes Initial inpatient/observation care: [id number]
[2023-12-29] MEDS: INSULIN LISPRO 100 UNIT/ML 3ML VIAL SUBCUT (17:31)
[2023-12-29] MEDS: PREGABALIN 25 MG CAPSULE 75 MG PO (20:45)
[2023-12-29] MEDS: MIRTAZAPINE 15 MG TABLET 7.5 MG PO (20:46)
[2023-12-29] MEDS: SODIUM CHLORIDE 0.9% FLUSH 10 ML IV (23:00)
[2023-12-30] VITALS (23 sets, daily range): BP systolic 103–153; BP diastolic 53–76; PULSE 71–122; RESP 1–22; TEMP 36–37.7; O2SAT 92–100
[2023-12-30 05:40] LABS: Add Manual Diff / Slide Review NO; Basophils Absolute Auto 100 /uL (0-100); Eosinophils Absolute Auto 100 /uL (0-450); Eosinophils Percent Auto 1.3 % (2-4); Lymphocytes Absolute Auto 1300 /uL (1100-4500); Lymphocytes Percent Auto 17.4 % (25-40); Mean Corpuscular HGB Conc 33.7 % (30-36); Mean Corpuscular Hemoglobin 26.9 PG (26-34); Mean Corpuscular Volume 79.8 fL (80-100); Monocytes Absolute Auto 500 /uL (0-900); Neutrophils Absolute Auto 5800 /uL (1500-7000); Neutrophils Percent Auto 74.3 % (50-75); Platelet Count 299 X10^3/uL (150-400); Red Blood Cell Count 2.49 X10^6/uL (4.5-5.9); Red Cell Distribution Width 20.9 % (11.6-14.8); White Blood Cell Count 7.7 X10^3/uL (4.5-11.0)
[2023-12-30 05:47] LABS: Hematocrit 19.9 % (41-53); Hemoglobin 6.7 g/dL (13.5-17.5)
[2023-12-30] MEDS: SODIUM CHLORIDE 0.9% 1,000 ML 150 ML IV ×2 (05:48→12:00)
[2023-12-30 05:50] LABS: BUN Creatinine Ratio 37.7 (6-22); Blood Urea Nitrogen 20 mg/dL (9-20); Calcium 8.4 mg/dL (8.4-10.2); Carbon Dioxide 26 mmol/L (22-32); Chloride 105 mmol/L (98-107); Estimated Glomerular Filt Rate > 60 mL/min (>60); Glucose 129 mg/dL (80-110); HEMOLYSIS < 15 (0-50); Potassium 3.3 mmol/L (3.4-5.1); Sodium 134 mmol/L (137-145)
[2023-12-30] MEDS: ACETAMINOPHEN 325 MG TABLET 650 MG PO ×2 (06:01→21:34)
[2023-12-30 06:22] LABS: Anisocytosis 2+; Hypochromasia 2+; Microcytosis 2+; Platelet Estimate Adequate on smear
[2023-12-30 06:58] LABS: Hematocrit 19.6 % (41-53); Hemoglobin 6.5 g/dL (13.5-17.5)
--- NOTE | 2023-12-30 08:05 | P.PN_ITS ---
Subjective Subjective Interval history: Summary: 75-year-old man under the care of Dr. Melissa Sterling of the [facility] for prostate cancer, originally diagnosed in 2012, with bone and brain metastasis recurrent in 2019, undergoing recent resected brain surgery in October and gamma knife therapy, has experienced recent anemia. He was transfused 2 units of packed red blood cells on recent hospitalization 12/17/2023 through at the [facility]. Since discharge he has had dark stools, cranberry in appearance, and increasing progressive weakness. He has no recent infectious symptoms, chest pain, breathing problems, nausea, vomiting, diarrhea, falls or injuries. He is admitted for blood transfusion and endoscopic evaluation. He has not recently received chemotherapy but is being considered for additional chemotherapeutic options. Family also has questions about hospice options. He has diabetes on Lantus insulin 12 units nightly, hypertension, and painful diabetic neuropathy as his other major health concerns. S: Hg 6 this AM. He feels fine. He is weak and pale. He had a recent admission to [facility] for constipation, dehydration, and electrolyte abnormalities. He recently had gamma knife to the brain for metastatic prostate cancer. He was followed by Melissa Sterling at [facility] oncology. No chest pain, or dyspnea. Exam Vital Signs (past 8 hours): - 12/30/23 04:00 Temperature 97.6 F Pulse Rate 121 H Respiratory Rate 16 Blood Pressure 141/62 H Pulse Oximetry 100 Oxygen Flow Rate 0 Oxygen Delivery Method Room Air Oxygen Flow Rate 0 Narrative Exam Narrative: He appears quite pale, and cachectic. He was in no distress, fluent speech Lungs are clear, normal effort. Heart is regular, no murmur. Abdomen is soft, nontender. No leg edema. Objective Labs 12/30/23 06:50 12/30/23 04:50 Labs: Laboratory Results - last 24 hr 12/29/23 12/30/23 12/30/23 09:47 04:50 06:50 WBC 7.7 RBC 2.49 L Hgb 6.7 L* 6.5 L* Hct 19.9 L* 19.6 L* MCV 79.8 L MCH 26.9 MCHC 33.7 RDW 20.9 H Plt Count 299 Neut % (Auto) 74.3 Lymph % (Auto) 17.4 L [place] % (Auto) 6.0 Eos % (Auto) 1.3 L Baso % (Auto) 1.0 Neut # (Auto) 5800 Lymph # (Auto) 1300 [place] # (Auto) 500 Eos # (Auto) 100 Baso # (Auto) 100 Platelet Estimate Adequate on smear RBC Morphology See below Hypochromasia 2+ H Anisocytosis 2+ H Microcytosis 2+ H Sodium 134 L Potassium 3.3 L D Chloride 105 Carbon Dioxide 26 BUN 20 Creatinine 0.53 L Estimated GFR > 60 BUN/Creatinine Ratio 37.7 H Glucose 129 H D Calcium 8.4 Urine Color Yellow Urine Appearance Clear Urine pH 6.0 Ur Specific [place] 1.015 Urine Protein Trace H Urine Glucose (UA) Negative Urine Ketones 1+ H Urine Occult Blood Negative Urine Nitrate Negative Urine Bilirubin Negative Urine Urobilinogen 0.2 Ur Leukocyte Esterase Negative Urine RBC None seen Urine WBC 0-1/hpf Ur Squamous Epith Cells 0-1 /hpf Urine Bacteria None seen Ur Culture Indicated? Cult not indicated Vol Urine Centrifuged 10ml (spun) [facility] Social History household members: spouse Smoking Status: Never smoker alcohol intake: never eating out: 1-3 times/week Type(s) of exercise: walking Assessment & Plan Assessment & Plan narrative: 1. Anemia, likely due to gastrointestinal bleeding. Transfuse 2 units of packed red blood cells. Follow serial hematocrits. Anticipate upper endoscopy and colonoscopy tomorrow per surgery. Bowel prep today. Hold aspirin. 2. 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 Management per [facility]. He has not recently received chemotherapy. 3. Diabetes mellitus, type 2. Continue insulin at 50% dosing with sliding scale coverage. Hold metformin. 4. Hypertension. Monitor off therapy at this point. 5. Painful diabetic neuropathy. Continue routine medication. 6. Depression. Continue mirtazapine. 7. Severe protein calorie malnutrition. Consult dietary. 8. DVT prophylaxis: Sequential compression devices. Relation contraindicated. 9. Code status: Do not resuscitate. The patient completes a POLST form, selecting limited interventions in part be. He otherwise wishes full treatment for cancer and GI bleeding. This is discussed in detail with his , durable power of employment law attorney and surrogate decision maker Racheal Gil. Plan: -the patient will require a 2nd midnight of care, this supports inpatient status. -we will transfuse an additional 2 units of blood at this time, irradiated. -we will discuss overall plan with Dr. Sterling of Oncology. -IV hydration -bowel prep -endoscopy today for surgery -50% dosing of Lantus until after endoscopy (6 units nightly) -continue routine Lyrica for neuropathy -hold lisinopril at this point until after endoscopy and stable -sequential compression devices -do not resuscitate code status ANDRZEJ: 12/30 Inpatient status, he requires 2 midnights of care. Time-Based Coding :: [TOTAL MINUTES] spent with patient and on the chart (including review of chart, obtaining history, exam, reviewing outside data, placing orders, documenting exam and treatment plan, and counseling patient) on [DATE]. Quality VTE Deep Vein Thrombosis/Pulmonary Embolism Present on Admission: No
[2023-12-30] MEDS: POTASSIUM CHLORIDE IN WATER 10 MEQ/100 ML PIGGYBACK 100 MEQ IV ×4 (08:11→12:44)
--- NOTE | 2023-12-30 10:56 | PM.OP.COLON ---
Operative Date/Time/Diagnoses Date of procedure: 12/30/23 Time of procedure: 10:56 Pre-op diagnosis: Anemia positive Guaic stools Procedure Notes Impression: OPERATIVE / PROCEDURE NOTE Lui Johnson, 1950, 73,Male,CSN: [id number] 12/30/23 PREOPERATIVE DIAGNOSIS: Anemia positive Guaic stools.. POSTOPERATIVE DIAGNOSIS: Same + Per the colonoscopy to the cecum: NORMAL colon, NO polyps, no Inflammatory bowel disease stigmata NO tumors, no hemorrhoids, NO lower GI bleed. PROCEDURE DONE: Colonoscopy to the cecum. ANESTHESIA: MAC per Anesthesia. COMPLICATIONS: None. SPECIMENS: None. ESTIMATED BLOOD LOSS: NONE. CONDITION: Stable to the PACU. OPERATIVE DESCRIPTION: After proper informed consent was signed by the patient knowing all the risks, benefits, and potential complications and possible alternatives of the procedure, the patient was appropriately identified. Lui Johnson underwent a bowel prep that was very efficient yesterday, and the colon was clean. After institution of sedation on his left lateral decubitus position, a rectal exam was performed. Normal rectal and anal tone was found. The Olympus colonoscope was placed into his anus and under direct visualization was advanced from the rectum to the rectosigmoid to the sigmoid to the left colon, splenic flexure, transverse colon, hepatic flexure, ascending colon, and all the way to the cecum. Circumferential visualization of the mucosa was possible. The appendix aperture was noted. The ileocecal valve was noted. No large tumors. No ulcers. No inflammatory bowel disease changes were noted. NO diverticulae noted in the sigmoid colon. In the rectum, the scope was retroflexed, and no internal hemorrhoids were noted. The scope was straightened back again. The colon was decompressed, and the scope was retracted out uneventfully. The patient tolerated the procedure well without any complications, was sent to the PACU in stable condition. RECOMMENDATIONS: 10 yrs f/o screening colonoscopy.. he has metastatic prostate cancer..
[2023-12-30] MEDS: PANTOPRAZOLE 40 MG VIAL IV ×2 (12:45→21:18)
--- NOTE | 2023-12-30 15:11 | CM.DANOTE ---
Patient is a 73 yo male who was admitted OBS and changed to INPT Status on 12/29/23 for GI Bleed. Pt has MCR and REG PPO for insurance and his PCP is Rudi Johnson in [facility]. EMR was reviewed. Per MD, pt with hx of prostate CA with mets to the bone and brain and admitted for GI bleed and needing multiple units of blood. Pt and spouse interested in Hospice information. Per Surgeon, completed scope and no active bleed shown and no concerns at this time and to continue to treat conservatively. SW met bedside with pt and spouse and explained role and they confirm they live in [facility] and their adult son Benjamin lives with them and is supportive and recently spouse's cousin moved in to help as well. Pt getting active Oncology tx through Dr. Sterling at [facility] and was recently hospitalized at [facility] for a few days. Pt's DPOA is his spouse Racheal who is very capable and involved in pt's care. They confirm they are interested in Hospice Info Visit just to determine their possible options as they are waiting for Telehealth appointment with Oncologist tomorrow and consultation with Hospitalist to determine if further treatment is even an option as pt has been very weak. Spouse states since pt's multiple Gamma Knife procedures he has had difficulty getting his strength back. Pt is still very A&O and able to participate in discussion but very drowsy and weak. Pt had just started with [facility] but has only had one visit and has no hx of SNF. [facility] confirms they would need new referral/orders to work with pt after discharge not just Resumption Orders. [facility] referral made this morning and SW called and confirmed it was received but not reviewed yet and they will attempt to set up Info Visit by tomorrow. SW discussed possible options of SNF rehab pending pt's progress and likely PT eval when more medically appropriate and the Medicare coverage for SNF. SW discussed new orders for a home plan of family assist and [facility] again. SW discussed option of home with family and [facility] if they decide not to pursue further Oncology treatments. Pt and spouse very appreciative and agreeable with seeing pt's progress and consultation with their Oncologist to determine the best plan at discharge. JENNIFER Gaffney Discharge Planning/Care Management CM Discharge Assessment Start: 12/30/23 15:09 Freq: Status: Active Protocol: Document 12/30/23 15:10 BF (Rec: 12/30/23 15:11 BF [id number]) Discharge Planning Assessment Assigned Gear Finisher JENNIFER Galloway DPOA/Assigned Designee Name spouse Racheal Advance Directives? No Advance Directives on File No History Provided By Patient,Family Member, Significant Other,Medical Record Has Patient been admitted in last 30 No days? Prior Living Arrangements House Household Members spouse,children Type of transporation used prior to Relies on Others admit Independent with ADL's Yes: somewhat Is patient alert and oriented? Yes Needs Assistance With Meal Prep,Managing Medications ,Home Chores / Shopping Caregiver for Another No Comment Oncology at [facility] at baseline DME Already Rented / Owned FWW / Walker Patient/Family Preference [facility] Facility,Home with Home Health Comment SNF vs HH vs Hospice pending progress Barriers to Discharge No Discharge Plan Home with Home Health Transportation Arrangement spouse bedside and can transport Referrals Initiated Other Additional Comment [facility] referral made for Info Visit Whiteboard Updated in Patient Room with Yes name and ext. # of Gear Finisher Review Status In Process Please Provide Date Initial DC 12/30/23 Assessment Was Performed Next Review Type Continued Stay Review
[2023-12-30] MEDS: FERROUS SULFATE 325 MG TABLET PO (20:21)
[2023-12-30 21:13] LABS: Hematocrit 29.5 % (41-53); Hemoglobin 9.8 g/dL (13.5-17.5)
[2023-12-30] MEDS: PREGABALIN 25 MG CAPSULE 75 MG PO (21:19)
[2023-12-30] MEDS: MIRTAZAPINE 15 MG TABLET 7.5 MG PO (21:19)
[2023-12-30] MEDS: INSULIN GLARGINE 100 UNIT/ML 3ML PEN 6 UNIT SUBCUT (21:20)
[2023-12-30] MEDS: INSULIN LISPRO 100 UNIT/ML 3ML VIAL SUBCUT (21:21)
[2023-12-31] VITALS: BP 144/86; PULSE 86; RESP 18; TEMP 37.1; O2SAT 96
[2023-12-31] MEDS: ACETAMINOPHEN 325 MG TABLET 650 MG PO ×3 (05:27→17:45)
[2023-12-31 05:32] VITALS: BP 140/69; PULSE 76; RESP 18; TEMP 36.5; O2SAT 98
[2023-12-31 05:33] LABS: Hematocrit 25.8 % (41-53); Hemoglobin 8.9 g/dL (13.5-17.5)
[2023-12-31 06:07] LABS: BUN Creatinine Ratio 20.4 (6-22); Blood Urea Nitrogen 11 mg/dL (9-20); Calcium 8.5 mg/dL (8.4-10.2); Carbon Dioxide 21 mmol/L (22-32); Chloride 108 mmol/L (98-107); Estimated Glomerular Filt Rate > 60 mL/min (>60); Glucose 136 mg/dL (80-110); HEMOLYSIS < 15 (0-50); Potassium 3.5 mmol/L (3.4-5.1); Sodium 133 mmol/L (137-145)
[2023-12-31] MEDS: PANTOPRAZOLE 40 MG VIAL IV ×2 (08:14→21:13)
[2023-12-31] MEDS: DULOXETINE 30 MG CAPSULE 60 MG PO (08:14)
[2023-12-31] MEDS: SENNOSIDES 8.6 MG TABLET 17.2 MG PO (08:15)
[2023-12-31] MEDS: INSULIN LISPRO 100 UNIT/ML 3ML VIAL SUBCUT ×3 (08:15→16:45)
[2023-12-31] MEDS: FERROUS SULFATE 325 MG TABLET PO (08:15)
[2023-12-31] MEDS: SODIUM CHLORIDE 0.9% FLUSH 10 ML IV ×2 (08:16→21:13)
--- NOTE | 2023-12-31 08:21 | PM.OP.EGD ---
Operative Date/Time/Diagnoses Date of procedure: 12/30/23 Time of procedure: 09:30 Pre-op diagnosis: Anemia, r/o GI bleed Post-op diagnosis: same Procedure Notes Procedure in detail: OPERATIVE / PROCEDURE NOTE Lui Johnson, 1950, 73,Male,CSN: [id number] 12/30/23 PREOPERATIVE DIAGNOSES: Anemia, prostate cancer, guaic positive stools.. FINDINGS: Esophagogastroduodenoscopy performed all the way through the third portion of the duodenum. Z-line was at 42 cm from the greater incisors level. No GERD stigmata noted. No obvious hiatal hernia. Mild gastritis. No peptic ulcer disease. No biliary reflux. PROCEDURE DONE: Esophagogastroduodenoscopy all the way to the third portion of the duodenum. SCALP TREATMENT SPECIALIST: None. ANESTHESIA: MAC per anesthesia. SPECIMEN: None. ESTIMATED BLOOD LOSS: None. COMPLICATIONS: None. CONDITION: Stable to the PACU. OPERATIVE DESCRIPTION: After appropriate informed consent was signed by the patient knowing all of the risks, benefits, potential complications, and possible alternatives of the procedure, the patient was properly identified in the holding area. Lui Johnson was taken to the GI suite and after institution of gentle IV sedation, he was placed on his left lateral decubitus position in reverse Trendelenburg position. The EGD Olympus scope was placed into his mouth and under direct visualization was advanced. The vocal cords were identified. No stigmata of reflux laryngitis noted. The esophagus was intubated. Z-line was at 42 cm from the superior incisors level. No stigmata of reflux esophagitis. No changes suspicious of Barretts esophagitis noted. The stomach was intubated. Healthy looking mucosa was identified. No ulcers. No gastritis. The pylorus was intubated all the way to the third portion of the duodenum. No postpyloric abnormalities noted including the ampulla and periampullary regions. The scope was retracted back into the stomach and retroflexed. No evidence of hiatal hernia identified. No biliary reflux was noted. The stomach was decompressed and the scope was retracted out uneventfully. The patient tolerated the procedure well without any complication.
--- NOTE | 2023-12-31 08:24 | P.PN_ITS ---
Subjective Subjective Date Patient Seen: 12/31/23 Time Patient Seen: 08:24 Exam Vital Signs (past 8 hours): - 12/31/23 05:32 Temperature 97.7 F Pulse Rate 76 Respiratory Rate 18 Blood Pressure 140/69 Pulse Oximetry 98 Oxygen Flow Rate 0 Oxygen Delivery Method Room Air Oxygen Flow Rate 0 Objective Labs 12/31/23 04:53 12/31/23 04:53 Labs: Laboratory Results - last 24 hr 12/28/23 12/30/23 12/31/23 20:44 21:01 04:53 Hgb 9.8 L 8.9 L Hct 29.5 L 25.8 L Sodium 133 L Potassium 3.5 Chloride 108 H Carbon Dioxide 21 L BUN 11 Creatinine 0.54 L Estimated GFR > 60 BUN/Creatinine Ratio 20.4 Glucose 136 H Calcium 8.5 Blood Type B Positive Antibody Screen Negative Crossmatch See Detail [facility] Social History household members: spouse and children Smoking Status: Never smoker alcohol intake: never eating out: 1-3 times/week Type(s) of exercise: walking Assessment & Plan Post-op Postoperative Procedures: Procedures Operation Date: 12/30/23 13:15 Actual Procedure Side Surgeon p Esophagogastroduodenoscopy Candy Lazo MD s Colonoscopy Candy Lazo MD Postoperative status narrative: Doing fine, NO GI bleed, continue FeSO4 and Senokot, may be discharged from the surgical standpoint. Quality VTE Deep Vein Thrombosis/Pulmonary Embolism Present on Admission: No
[2023-12-31 08:39] VITALS: BP 140/70; RESP 19; TEMP 36.7; O2SAT 98
[2023-12-31] MEDS: POTASSIUM CHLORIDE 20 MEQ TAB 40 MEQ PO (09:29)
[2023-12-31 11:48] VITALS: BP 137/70; PULSE 105; RESP 17; TEMP 36.4; O2SAT 96
[2023-12-31 12:24] LABS: Hematocrit 26.7 % (41-53)
--- NOTE | 2023-12-31 13:15 | CM.DPC ---
DCP Cont. Reviewed EMR and team rounds for status updates. Per Hospitalist, pt will be medically cleared for d/c on 12/31. Pending PT eval for final recs, pt is still having a info visit w[facility] to determine family's own preference for d/c services.
--- NOTE | 2023-12-31 13:18 | P.PN_ITS ---
Subjective Subjective Interval history: S: He feels better today. No BM overnight. He denies any abdominal pain or vomiting. He was eating a regular diet. His last hemoglobin was stable, at 9. Exam Vital Signs (past 8 hours): - 12/31/23 05:32 12/31/23 08:39 12/31/23 11:48 Temperature 97.7 F 98.1 F 97.6 F Pulse Rate 76 105 H Respiratory Rate 18 19 17 Blood Pressure 140/69 140/70 137/70 Pulse Oximetry 98 98 96 Oxygen Flow Rate 0 0 Oxygen Delivery Method Room Air Oxygen Flow Rate 0 Narrative Exam Narrative: NAD, fluent speech. Cachectic. Regular heart Clear lungs Pale skin No leg edema Right arm edema > left. Objective Labs 12/31/23 12:13 12/31/23 04:53 Labs: Laboratory Results - last 24 hr 12/28/23 12/30/23 12/31/23 20:44 21:01 04:53 Hgb 9.8 L 8.9 L Hct 29.5 L 25.8 L Sodium 133 L Potassium 3.5 Chloride 108 H Carbon Dioxide 21 L BUN 11 Creatinine 0.54 L Estimated GFR > 60 BUN/Creatinine Ratio 20.4 Glucose 136 H Calcium 8.5 Blood Type B Positive Antibody Screen Negative Crossmatch See Detail 12/31/23 12:13 Hgb 9.0 L Hct 26.7 L Sodium Potassium Chloride Carbon Dioxide BUN Creatinine Estimated GFR BUN/Creatinine Ratio Glucose Calcium Blood Type Antibody Screen Crossmatch [facility] Social History household members: spouse and children Smoking Status: Never smoker alcohol intake: never eating out: 1-3 times/week Type(s) of exercise: walking Assessment & Plan Assessment & Plan narrative: 1. Anemia, likely due to gastrointestinal bleeding. Transfused 4 units of packed red blood cells. Stable. 2. 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 Stable. 3. Diabetes mellitus, type 2. Continue insulin at 50% dosing with sliding scale coverage. Hold metformin. 4. Hypertension. Monitor off therapy at this point. Stable off medications. 5. Painful diabetic neuropathy. Stable. Continue routine medication. 6. Depression. Stable. Continue mirtazapine. 7. Severe protein calorie malnutrition. Consult dietary. 8. DVT prophylaxis: Sequential compression devices. Relation contraindicated. 9. Code status: Do not resuscitate. The patient south a POLST form, selecting limited interventions in part be. He otherwise wishes full treatment for cancer and GI bleeding. This is discussed in detail with his , durable power of trademark attorney and surrogate decision maker Racheal Gil. PLAN: -monitor for an additional light. -monitor hemoglobin and bowel movements to rule out evidence of ongoing bleeding. ANDRZEJ: December 31. Time-Based Coding :: [TOTAL MINUTES] spent with patient and on the chart (including review of chart, obtaining history, exam, reviewing outside data, placing orders, documenting exam and treatment plan, and counseling patient) on [DATE]. Quality VTE Deep Vein Thrombosis/Pulmonary Embolism Present on Admission: No
--- NOTE | 2023-12-31 17:05 | DIET.CONS ---
Dietary Consultation Note Admission Date: 12/30/2023 10:32 Assessment: 73 y M admitted for GI bleed. PMH of metastatic prostate cancer and diabetes type 2. Nutrition consulted for severe protein calorie malnutrition. Met w/ pt at bedside. Reports last 3 weeks has had decrease in PO intakes r/t hospitalization (per H&P this was 12/16-12/25/23) and decreased appetite, <75% of normal intakes. works to provide him with protein supplements, adds extra calorie and protein to meals, and encourages meals and snacks. Addressed questions related to nutrition and constipation. 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 Ht: 175.26 cm Wt: 54 kg BMI: 17.6 UBW: 58.55 kg on 12/16/23 (7.8% weight loss within 1 month, severe) Last BM: 12/30/23 (12/30/23 20:00) MNA: 4 Micheal Score: 21 Diet: 12/30/23 Dinner Full Liquid Diet Diet Modifications: Nutrition Percent Meal Consumed 340 12/30/23 17:24 Percent Meal Consumed 75% 12/29/23 18:00 Labs: RBC 2.49 X10^6/uL (4.5-5.9) L 12/30/23 04:50 Hgb 9.0 g/dL (13.5-17.5) L 12/31/23 12:13 Hct 26.7 % (41-53) L 12/31/23 12:13 Creatinine 0.54 mg/dL (0.66-1.25) L 12/31/23 04:53 Lactate 1.3 mmol/L (0.7-2.1) 12/28/23 22:35 Nutrition Diagnosis: Severe acute on chronic protein calorie malnutrition r/t inadequate oral intake as evidenced by <75% of estimated energy intake in 3 weeks, 7.8% weight loss within 1 month (severe), metastatic prostate cancer, BMI underweight for age (17.6) Interventions: -ONS at meals EER: [id number] (30-35 kcals/kg) 65-80 g protein (1.25-1.5 g/kg per PCM) Monitoring/Evaluations: po intakes, diet advancement, BG Electronically Signed by: Anastasia Lozano 12/31/23 17:[address] [address]
[2023-12-31 18:00] VITALS: BP 132/66; PULSE 105; RESP 18; TEMP 36.3; O2SAT 100
[2023-12-31 20:00] VITALS: BP 126/66; PULSE 97; RESP 16; TEMP 36.6; O2SAT 99
[2023-12-31] MEDS: PREGABALIN 25 MG CAPSULE 75 MG PO (21:12)
[2023-12-31] MEDS: MIRTAZAPINE 15 MG TABLET 7.5 MG PO (21:12)
[2023-12-31] MEDS: INSULIN GLARGINE 100 UNIT/ML 3ML PEN 6 UNIT SUBCUT (21:17)
[2024-01-01] VITALS: BP 144/79; PULSE 116; RESP 16; TEMP 36.3; O2SAT 98
[2024-01-01] MEDS: ACETAMINOPHEN 325 MG TABLET 650 MG PO ×2 (01:31→07:57)
[2024-01-01 05:36] LABS: Hemoglobin 8.9 g/dL (13.5-17.5)
[2024-01-01 05:49] LABS: BUN Creatinine Ratio 12.5 (6-22); Blood Urea Nitrogen 6 mg/dL (9-20); Calcium 8.6 mg/dL (8.4-10.2); Carbon Dioxide 26 mmol/L (22-32); Chloride 107 mmol/L (98-107); Estimated Glomerular Filt Rate > 60 mL/min (>60); Glucose 101 mg/dL (80-110); HEMOLYSIS < 15 (0-50); Potassium 3.4 mmol/L (3.4-5.1); Sodium 134 mmol/L (137-145)
[2024-01-01 06:14] VITALS: BP 128/70; PULSE 99; RESP 16; TEMP 36.2; O2SAT 98
[2024-01-01] MEDS: PANTOPRAZOLE 40 MG VIAL IV (09:22)
[2024-01-01] MEDS: FERROUS SULFATE 325 MG TABLET PO (09:22)
[2024-01-01] MEDS: SENNOSIDES 8.6 MG TABLET 17.2 MG PO (09:23)
[2024-01-01] MEDS: DULOXETINE 30 MG CAPSULE 60 MG PO (09:23)
[2024-01-01] MEDS: SODIUM CHLORIDE 0.9% FLUSH 10 ML IV (09:23)
--- NOTE | 2024-01-01 09:36 | P.DS_ITS ---
History of Present Illness History of Present Illness Chief complaint: blood in stool, being treated for cancer Narrative: From H&P: 75-year-old man under the care of Dr. Melissa Sterling of the [facility] [place] for prostate cancer, originally diagnosed in 2011, with bone and brain metastasis recurrent in 2019, undergoing recent resected brain surgery in October and gamma knife therapy, has experienced recent anemia. He was transfused 2 units of packed red blood cells on recent hospitalization 12/17/2023 through at the [facility]. Since discharge he has had dark stools, cranberry in appearance, and increasing progressive weakness. He has no recent infectious symptoms, chest pain, breathing problems, nausea, vomiting, diarrhea, falls or injuries. He is admitted for blood transfusion and endoscopic evaluation. He has not recently received chemotherapy but is being considered for additional chemotherapeutic options. Family also has questions about hospice options. He has diabetes on Lantus insulin 12 units nightly, hypertension, and painful diabetic neuropathy as his other major health concerns. Discharge Providers Provider Date of admission: 12/30/23 10:32 Discharge Date: 01/01/24 Primary care physician: Doctor Emeka MD Consults: 12/29/23 13:59 Consult to Dietitian, Adult Routine Comment: Reason For Exam: protein mark malnutrition Discharge provider: Luis Bennett MD Summary Hospital Course Discharge Diagnosis: 1. Anemia, likely due to gastrointestinal bleeding. Transfused 4 units of packed red blood cells. Resolved. 2. Rectal bleeding, present on admission and resolved. 3. 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 Stable. 4. Diabetes mellitus, type 2. Stable. 5. Hypertension. Stable. 6. Painful diabetic neuropathy. Stable. Continue routine medication. 7. Depression. Stable. Continue mirtazapine. 8. Severe protein calorie malnutrition. Consult dietary. Hospital Course: The patient is a 75-year-old male with history of metastatic cancer presented with a rectal bleeding. This is primarily rectal blood. He initially required 2 units of blood on the day of admission and another 2 units in the following day. The patient had resolution of his rectal bleeding. The patient was seen by by surgery and underwent a colonoscopy on December 29 which was unremarkable. EGD was also performed and was unremarkable. The patient was monitored for an additional 24 hours and had brown stool and a stable hemoglobin at 9. His iron was slightly low at 42. He was also quite constipated on, and this appears to be a chronic issue for him. The bloody received was irradiated. He was followed by [facility] with ongoing potential planning for ongoing therapy. 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 Status at Discharge Cognitive/behavioral status at discharge: oriented Functional status at discharge: independent ambulation Overall status at discharge: patient is back to baseline Time Spent with Patient Time spent: Greater than 30 minutes Exam Vital Signs (past 8 hours): - 01/01/24 06:14 Temperature 97.1 F L Pulse Rate 99 H Respiratory Rate 16 Blood Pressure 128/70 Pulse Oximetry 98 Oxygen Delivery Method Room Air Oxygen Flow Rate 0 Narrative Exam Narrative: NAD, alert and oriented. Fluent speech. Cachectic. Lungs are clear, normal rate and effort. Heart is regular, no murmur gallop or rub. Abdomen is soft, non distended. Extremities are free of edema. Objective Imaging Chest x-ray: Radiologist's impression: Portable chest within normal limits for age. CT scan - abdomen: Radiologist's impression: Unremarkable CT angiogram without evidence of significant stenosis, aneurysm or active GI bleeding. 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 Anemia, likely due to gastrointestinal bleeding. Transfused 4 units of packed red blood cells. Resolved. 2. Rectal bleeding, present on admission and resolved. 3. 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 Stable. 4. Diabetes mellitus, type 2. Stable. 5. Hypertension. Stable. 6. Painful diabetic neuropathy. Stable. Continue routine medication. 7. Depression. Stable. Continue mirtazapine. 8. Severe protein calorie malnutrition. Consult dietary. Plan of Treatment: Discharge home, follow up with Cancer team in early January. We will hold off on iron as it can make the stool black and cause constipation. This can be reassessed by his team if he remained stable. He will be on Protonix once daily in the interim. Discharge Plan Discharge Plan Patient Disposition: Home Provider Discharge Comment: Stable for discharge home with close follow up. Discharge orders & Medications Prescriptions: New pantoprazole [Protonix] 40 mg tablet,delayed release (DR/EC) 40 mg PO DAILY Qty: 30 2RF Continued ASPIRIN (#ASPIR 81) 81 mg PO DAILY Qty: 0 metformin [Glucophage XR] 500 MG tablet extended release 24 hr 1,000 mg PO BID Qty: 0 [MENS MULTIPLE VIT.] 1 tab PO DAILY Qty: 0 Fish Oil (Fish Oil 500 MG Softgel) 2,000 mg PO QDAY Qty: 0 polyethylene glycol 3350 [Miralax] 17 gram Powder In Packet 17 g PO DAILY PRN (Reason: Constipation) lisinopril 20 mg tablet 20 mg PO DAILY PRN (Reason: Hypertension) Rx Instructions: take in BP > 130/60 acetaminophen [Tylenol Extra Strength] 500 mg Tablet 1,000 mg PO Q6H PRN (Reason: Pain (Scale Score 4-6)) bisacodyl 10 mg Suppository [address] DAILY PRN (Reason: Constipation) mirtazapine 7.5 mg tablet 7.5 mg PO ONCE PM duloxetine 60 mg capsule,delayed release(DR/EC) 60 mg PO DAILY calcium citrate-vitamin D3 200 mg-3.125 mcg (125 unit) Tablet 1 tab PO DAILY insulin glargine [Lantus Solostar U-100 Insulin] 100 unit/mL (3 mL) insulin pen 12 unit SUBCUT BEDTIME Patient Comments: [NO ORIGINAL SIG] pregabalin 82.5 mg tablet extended release 24 hr 82.5 mg PO BEDTIME magnesium oxide 400 mg magnesium Tablet 400 mg PO DAILY Follow up/Referrals: Doctor Hendrickson MD [Primary Care Provider] - Discharge Health Status Multidrug resistant organism: No MDRO Diet/Activity/Treatments Diet: Diet as Tolerated Visit Report/Discharge Packet Instructions: DI for Rectal Bleeding Stand Alone Forms: Patient Portal/API Discharge Data Primary Care Provider: Doctor Emeka Quality VTE Deep Vein Thrombosis/Pulmonary Embolism Present on Admission: No
[2024-01-01 10:07] LABS: HEMOLYSIS < 15 (0-50)
[2024-01-01 10:11] LABS: Iron 42 ug/dL (49-181)
[2024-01-01] MEDS: POTASSIUM CHLORIDE 20 MEQ TAB 40 MEQ PO (10:32)
--- NOTE | 2024-01-01 11:32 | CM.DPC ---
DCP Cont. Reviewed EMR and team rounds for status updates. Met with pt/spouse to clarify the plan for Hospice vs. continued ONC tx at [facility]. They are going to continue tx for now, but would like an informational visit sometime next week. [facility] relayed this info. Pt has been medically cleared for home d/c today, his spouse will transport him home. No further CM needs identified at this time.
[2024-01-02 20:08] LABS: Percent Iron Saturation 28 % (20-50); Total Iron Binding Capacity 150 ug/dL (261-462); Transferrin 102 mg/dL (206-381)
== END 2024-01-01 11:53 | disposition home or self-care (01) | DRG 377 ==
LOC: ED 12-29 07:54 → AC 12-29 07:57
PROVIDERS: Emergency Medicine; Hospitalist; Internal Medicine; Surgery; Admitting Provider Internal Medicine; Emergency Provider Emergency Medicine; Referring Provider Emergency Medicine; Visit Provider Internal Medicine
PROC: 0DJ08ZZ Inspection of Upper Intestinal Tract, Via Natural or Artificial Opening Endoscopic (ICD-10-PCS; CPT 43235; principal; 2023-12-30 13:15)
PROC: 0DJD8ZZ Inspection of Lower Intestinal Tract, Via Natural or Artificial Opening Endoscopic (ICD-10-PCS; CPT 45378; 2023-12-30 13:15)
DX: K62.5 Hemorrhage of anus and rectum (principal); E43 Unspecified severe protein-calorie malnutrition; C79.51 Secondary malignant neoplasm of bone; C79.31 Secondary malignant neoplasm of brain; Z68.1 Body mass index [BMI] 19.9 or less, adult; D62 Acute posthemorrhagic anemia; C61 Malignant neoplasm of prostate; I10 Essential (primary) hypertension; E11.40 Type 2 diabetes mellitus with diabetic neuropathy, unspecified; F32.A Depression, unspecified; Z66 Do not resuscitate; Z79.4 Long term (current) use of insulin; Z98.890 Other specified postprocedural states; Z79.84 Long term (current) use of oral hypoglycemic drugs
CPT/HCPCS: 36415; 36430; 71045; 74174; 80048; 80053; 81001; 82272; 82550; 82962; 83540; 83550; 83605; 83690; 84484; 85014; 85018; 85025; 86850; 86900; 86901; 87040; 93005; 96361; 96374; 99285; G0378; P9016; J1815; J2470; J2704; Q9967

== ENCOUNTER 2024-01-03 15:04 | Inpatient (IN) | payer MEDICARE, OTHER, SELFPAY ==
[2023-12-29 10:07] VITALS: BMI 17.6
[2024-01-03] VITALS (20 sets, daily range): BP systolic 60–121; BP diastolic 34–60; PULSE 64–119; RESP 18–24; TEMP 35.8–36.6; O2SAT 79–100; BMI 17.7
--- NOTE | 2024-01-03 15:16 | ED.GIBLEED ---
HPI - GI Bleed General Chief complaint: GI Bleed Stated complaint: Hypotension, dark stool Time Seen by Provider: 01/03/24 15:05 History of Present Illness HPI Narrative: Patient discharged here 2 days ago for rectal bleeding anemia receiving blood transfusions did have EGD and colonoscopy as well. Patient returns for continued dizziness weakness and dark stools. Patient is not on any blood thinners. Patient does have metastatic prostate cancer, Mets to the brain. Please see discharge summary below. Discharge provider: Luis Bennett MD Summary Hospital Course Discharge Diagnosis: 1. Anemia, likely due to gastrointestinal bleeding. Transfused 4 units of packed red blood cells. Resolved. 2. Rectal bleeding, present on admission and resolved. 3. 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 Stable. 4. Diabetes mellitus, type 2. Stable. 5. Hypertension. Stable. 6. Painful diabetic neuropathy. Stable. Continue routine medication. 7. Depression. Stable. Continue mirtazapine. 8. Severe protein calorie malnutrition. Consult dietary. Hospital Course: The patient is a 75-year-old male with history of metastatic cancer presented with a rectal bleeding. This is primarily rectal blood. He initially required 2 units of blood on the day of admission and another 2 units in the following day. The patient had resolution of his rectal bleeding. The patient was seen by by surgery and underwent a colonoscopy on December 29 which was unremarkable. EGD was also performed and was unremarkable. The patient was monitored for an additional 24 hours and had brown stool and a stable hemoglobin at 9. His iron was slightly low at 42. He was also quite constipated on, and this appears to be a chronic issue for him. The bloody received was irradiated. He was followed by [facility] with ongoing potential planning for ongoing therapy. He was had gamma knife to the the brain for [employer] metastases. Related Data Home Medications Medication Instructions Recorded Confirmed ASPIRIN (#ASPIR 81) 81 mg PO DAILY ##0 04/07/11 01/03/24 Fish Oil (Fish Oil 500 MG Softgel) 2,000 mg PO QDAY ##0 09/05/11 01/03/24 [MENS MULTIPLE VIT.] 1 tab PO DAILY ##0 09/05/11 01/03/24 metformin 500 mg tablet,extended 1,000 mg PO BID ##0 09/05/11 01/03/24 release 24 hr (Glucophage XR) acetaminophen 500 mg tablet 1,000 mg PO Q6H PRN Pain (Scale 12/29/23 01/06/24 (Tylenol Extra Strength) Score 4-6) bisacodyl 10 mg rectal suppository 10 mg LA DAILY PRN Constipation 12/29/23 01/03/24 calcium citrate 200 mg 1 tab PO DAILY 12/29/23 01/03/24 calcium-vitamin D3 3.125 mcg (125 unit) tablet duloxetine 60 mg capsule,delayed 60 mg PO DAILY 12/29/23 01/03/24 release insulin glargine 100 unit/mL (3 12 unit SUBCUT BEDTIME 12/29/23 01/03/24 mL) subcutaneous pen (Lantus Solostar U-100 Insulin) lisinopril 20 mg tablet 20 mg PO DAILY PRN Hypertension 12/29/23 01/06/24 magnesium oxide 400 mg PO DAILY 12/29/23 01/03/24 mirtazapine 7.5 mg tablet 7.5 mg PO ONCE PM 12/29/23 01/03/24 polyethylene glycol 3350 17 gram 17 g PO DAILY PRN Constipation 12/29/23 01/03/24 oral powder packet (Miralax) pregabalin 82.5 mg tablet, 82.5 mg PO BEDTIME 12/29/23 01/03/24 extended release 24 hr Previous Rx's Medication Instructions Recorded pantoprazole 40 mg tablet,delayed 40 mg PO DAILY #30 tabs 01/01/24 release (Protonix) Allergies Allergy/AdvReac Type Severity Reaction Status Date / Time No Known Drug Allergies Allergy Verified 01/03/24 15:18 Review of Systems Review of Systems Narrative: GENERAL: negative chills, positive fatigue, malaise, negative fever, sweats. HEENT: negative sinus pain, ear pain, sore throat RESPIRATORY: negative dyspnea, cough CARDIOVASCULAR: negative chest pain, palpitations GASTROINTESTINAL: negative nausea, vomiting, abdominal pain, positive black stools : negative dysuria, frequency, hematuria MUSCULOSKELETAL: negative muscle or bony pain SKIN: negative rash, skin lesions NEUROLOGIC: negative weakness, numbness ROS Unobtainable: All systems reviewed & are unremarkable except as noted in HPI and below Patient History Social History household members: spouse and children Smoking Status: Never smoker alcohol intake: never eating out: 1-3 times/week Type(s) of exercise: walking Smoking Status: Never smoker Substance Use Type: does not use Exam Narrative Exam Narrative: GENERAL: in no distress, not toxic not dyspneic HEAD: Normocephalic. EYES: Pupils equal round pale conjunctiva ENT: Mucous membranes moist. NECK: Trachea midline. CARDIOVASCULAR: Regular rate and rhythm, tachycardic RESPIRATORY: Clear to auscultation. Breath sounds equal bilaterally. No wheezes, rales, or rhonchi. GASTROINTESTINAL: Abdomen soft, non-tender EXTREMITIES: No gross deformities. BACK: No flank tenderness. NEURO: AOx4. SKIN: Warm and dry however pale PSYCH: Not anxious, is cooperative Initial Vital Signs Initial Vital Signs: Vital Signs Pulse Rate 118 H 01/03/24 15:14 Respiratory Rate 22 01/03/24 15:14 Blood Pressure 116/55 L 01/03/24 15:14 Pulse Oximetry 79 L 01/03/24 15:14 Oxygen Delivery Method Room Air 01/03/24 15:14 Course Orders Ordered: Discontinued Medications Acetaminophen (Acetaminophen 325 Mg Tablet) 650 mg PO Q6H PRN PRN Reason: Fever/Mild Pain (1-3) Last Admin: 01/07/24 17:38 Dose: 650 mg Documented By: Admin: 01/07/24 12:35 Dose: 650 mg Documented By: Admin: 01/07/24 07:09 Dose: 650 mg Documented By: Admin: 01/06/24 22:35 Dose: 650 mg Documented By: Admin: 01/06/24 16:33 Dose: 650 mg Documented By: Admin: 01/06/24 10:43 Dose: 650 mg Documented By: Admin: 01/06/24 04:03 Dose: 650 mg Documented By: Admin: 01/05/24 22:02 Dose: 650 mg Documented By: Admin: 01/05/24 16:06 Dose: 650 mg Documented By: Admin: 01/05/24 09:50 Dose: 650 mg Documented By: Admin: 01/05/24 03:33 Dose: 650 mg Documented By: Admin: 01/04/24 19:42 Dose: 650 mg Documented By: Admin: 01/04/24 13:32 Dose: 650 mg Documented By: Admin: 01/04/24 07:33 Dose: 650 mg Documented By: Admin: 01/04/24 01:35 Dose: 650 mg Documented By: Admin: 01/03/24 20:05 Dose: 650 mg Documented By: Duloxetine HCl (Duloxetine 30 Mg Capsule) 60 mg PO DAILY [facility] Last Admin: 01/07/24 08:38 Dose: 60 mg Documented By: Admin: 01/06/24 08:14 Dose: 60 mg Documented By: Admin: 01/05/24 08:43 Dose: 60 mg Documented By: Admin: 01/04/24 10:14 Dose: 60 mg Documented By: ADELITA Ferrous Sulfate (Ferrous Sulfate 325 Mg Tablet) 325 mg PO BIDWM [facility] Last Admin: 01/07/24 17:36 Dose: 325 mg Documented By: Admin: 01/07/24 08:34 Dose: 325 mg Documented By: Admin: 01/06/24 16:33 Dose: 325 mg Documented By: Admin: 01/06/24 08:14 Dose: 325 mg Documented By: Admin: 01/05/24 17:17 Dose: 325 mg Documented By: LIGIA Dextrose/Sodium Chloride (Dextrose 5%-0.9% Ns) 1,000 mls @ 100 mls/hr IV CONT [facility] Last Admin: 01/04/24 00:51 Dose: 100 mls/hr Documented By: Dextrose (D10w) 100 mls @ 999 mls/hr IV PRN PRN PRN Reason: Hypoglycemia Insulin Glargine (Insulin Glargine 100 Unit/Ml 3ml Pen) 12 unit SUBCUT 2100 [facility] Last Admin: 01/06/24 22:03 Dose: 12 unit Documented By: BR Co-signed By: RAY Admin: 01/05/24 20:49 Dose: 12 unit Documented By: Co-signed By: ANABELA Admin: 01/04/24 20:14 Dose: 12 unit Documented By: Co-signed By: TERRANCE Insulin Human Lispro (Insulin Lispro 100 Unit/Ml 3ml Vial) 0 unit SUBCUT ACHS [facility]; Protocol Last Admin: 01/07/24 17:35 Dose: Not Given Documented By: Admin: 01/07/24 12:34 Dose: Not Given Documented By: Admin: 01/07/24 07:50 Dose: Not Given Documented By: Admin: 01/06/24 22:04 Dose: 1 unit Documented By: JACK Co-signed By: RAY Admin: 01/06/24 16:35 Dose: Not Given Documented By: Admin: 01/06/24 11:50 Dose: 1 unit Documented By: TARYN Co-signed By: MANDI Admin: 01/06/24 08:19 Dose: 1 unit Documented By: TARYN Co-signed By: SB Admin: 01/05/24 21:04 Dose: Not Given Documented By: Admin: 01/05/24 17:22 Dose: 1 unit Documented By: LIGIA Co-signed By: SHANA Admin: 01/05/24 12:09 Dose: Not Given Documented By: Admin: 01/05/24 07:39 Dose: Not Given Documented By: Admin: 01/04/24 20:13 Dose: Not Given Documented By: Admin: 01/04/24 18:14 Dose: Not Given Documented By: Admin: 01/04/24 12:25 Dose: 2 unit Documented By: ADELITA Co-signed By: SENTHIL Magnesium Oxide (Magnesium Oxide 400 Mg Tablet) 400 mg PO DAILY [facility] Last Admin: 01/07/24 08:38 Dose: 400 mg Documented By: Admin: 01/06/24 08:18 Dose: 400 mg Documented By: Admin: 01/05/24 08:44 Dose: 400 mg Documented By: LIGIA Mirtazapine (Mirtazapine 15 Mg Tablet) 7.5 mg PO BEDTIME [facility] Last Admin: 01/06/24 21:02 Dose: 7.5 mg Documented By: Admin: 01/05/24 18:56 Dose: 7.5 mg Documented By: Admin: 01/04/24 20:13 Dose: 7.5 mg Documented By: Naloxone HCl (Naloxone 0.4 Mg/Ml Vial) 0.2 mg IV Q2MIN PRN PRN Reason: Opiate Reversal Ondansetron HCl (Ondansetron 4 Mg/2 Ml Inj) 4 mg IV NOW PRN PRN Reason: Nausea And Vomiting Ondansetron HCl (Ondansetron 4 Mg Odt) 4 mg SL NOW PRN PRN Reason: Nausea And Vomiting Ondansetron HCl (Ondansetron 4 Mg/2 Ml Inj) 4 mg IV Q8HR PRN PRN Reason: Nausea And Vomiting Pantoprazole Sodium (Pantoprazole 40 Mg Vial) 80 mg IV NOW ONE Stop: 01/03/24 15:06 Last Admin: 01/03/24 15:31 Dose: 80 mg Documented By: LILLY Pantoprazole Sodium (Pantoprazole 40 Mg Vial) 40 mg IV BID [facility] Last Admin: 01/07/24 08:38 Dose: 40 mg Documented By: Admin: 01/06/24 21:03 Dose: 40 mg Documented By: Admin: 01/06/24 08:14 Dose: 40 mg Documented By: Admin: 01/05/24 20:48 Dose: 40 mg Documented By: Admin: 01/05/24 08:44 Dose: 40 mg Documented By: Admin: 01/04/24 20:14 Dose: 40 mg Documented By: Admin: 01/04/24 08:20 Dose: 40 mg Documented By: Admin: 01/03/24 20:05 Dose: 40 mg Documented By: Pregabalin (Pregabalin 75 Mg Capsule) 75 mg PO BEDTIME [facility] Last Admin: 01/06/24 21:02 Dose: 75 mg Documented By: Admin: 01/05/24 20:48 Dose: 75 mg Documented By: Admin: 01/04/24 20:13 Dose: 75 mg Documented By: Sodium Chloride (Sodium Chloride 0.9% Flush) 10 ml IV PRN PRN PRN Reason: Flush Sodium Chloride (Sodium Chloride 0.9% Flush) 10 ml IV BID [facility] Last Admin: 01/07/24 08:39 Dose: 10 ml Documented By: Admin: 01/06/24 21:03 Dose: 10 ml Documented By: Admin: 01/06/24 08:15 Dose: 10 ml Documented By: Admin: 01/05/24 21:04 Dose: 10 ml Documented By: Admin: 01/05/24 08:44 Dose: 10 ml Documented By: LIGIA Vital Signs Vital signs: Vital Signs - 8 hr 01/03/24 15:14 01/03/24 15:32 Temperature 96.4 F L Pulse Rate 118 H 119 H Respiratory Rate 22 23 Blood Pressure 116/55 L 100/57 L Pulse Oximetry 79 L 100 Oxygen Delivery Method Room Air Room Air MDM - GI Bleed Lab Data 01/07/24 11:52 01/07/24 05:57 Labs: Lab Results 01/03/24 01/04/24 01/04/24 Range/Units 15:57 03:55 12:00 WBC 8.3 7.4 (4.5-11.0) X10^3/uL RBC 2.61 L 3.62 L (4.5-5.9) X10^6/uL Hgb 7.4 L 10.1 L 10.0 L (13.5-17.5) g/dL Hct 22.1 L 29.7 L 29.4 L (41-53) % MCV 84.8 D 82.1 (80-100) fL MCH 28.4 27.9 (26-34) PG MCHC 33.4 34.0 (30-36) % RDW 21.0 H 18.1 H (11.6-14.8) % Plt Count 293 284 (150-400) X10^3/uL Neut % (Auto) Not Reportable Lymph % (Auto) Not Reportable [place] % (Auto) Not Reportable Eos % (Auto) Not Reportable Baso % (Auto) Not Reportable Lymph # (Auto) Not Reportable [place] # (Auto) Not Reportable Baso # (Auto) Not Reportable Total Counted 100 Seg Neutrophils % 70.0 (38-70) % Band Neutrophils % 4.0 (3-7) % Lymphocytes % (Manual) 18.0 L (25-45) % Monocytes % (Manual) 4.0 (2-11) % Eosinophils % (Manual) 1.0 L (2-4) % Basophils % (Manual) 2.0 H (0-1) % Metamyelocytes % 1.0 H (-0) % Myelocytes % (-0) % Neutrophils # (Manual) 6142 H (4892-3875) /uL Nucleated RBCs 2 H ( - 0) #/Diff Platelet Estimate RBC Morphology See below Anisocytosis 2+ H PT 13.1 H (9.4-12.5) SECONDS INR 1.1 (0.9-1.3) APTT 39 H (25.1-36.5) SECONDS Sodium 131 L 131 L (137-145) mmol/L Potassium 3.8 3.9 (3.4-5.1) mmol/L Chloride 102 105 (98-107) mmol/L Carbon Dioxide 26 23 (22-32) mmol/L BUN 19 21 H (9-20) mg/dL Creatinine 0.46 L 0.44 L (0.66-1.25) mg/dL Estimated GFR > 60 > 60 (>60) mL/min BUN/Creatinine Ratio 41.3 H 47.7 H (6-22) Glucose 136 H 148 H (80-110) mg/dL Calcium 7.8 L 7.8 L (8.4-10.2) mg/dL Magnesium (1.6-2.3) mg/dL Total Bilirubin 0.2 (0.2-1.3) mg/dL AST 85 H (17-59) IU/L ALT 11 (<50) IU/L Alkaline Phosphatase 418 H (38-126) U/L Total Protein 4.6 L (6.3-8.2) g/dL Albumin 2.1 L (3.5-5.0) g/dL Globulin 2.5 (1.7-4.1) g/dL Albumin/Globulin Ratio 0.8 L (1.0-2.8) Blood Type B Positive Antibody Screen Negative Crossmatch See Detail 01/05/24 01/05/24 01/06/24 Range/Units 04:25 13:20 05:45 WBC 4.7 5.1 (4.5-11.0) X10^3/uL RBC 3.12 L 2.78 L (4.5-5.9) X10^6/uL Hgb 8.9 L 9.1 L 7.9 L (13.5-17.5) g/dL Hct 25.7 L 26.6 L 23.2 L (41-53) % MCV 82.6 83.7 (80-100) fL MCH 28.4 28.4 (26-34) PG MCHC 34.4 34.0 (30-36) % RDW 19.0 H 19.0 H (11.6-14.8) % Plt Count 288 305 (150-400) X10^3/uL Neut % (Auto) Not Reportable Lymph % (Auto) Not Reportable [place] % (Auto) Not Reportable Eos % (Auto) Not Reportable Baso % (Auto) Not Reportable Lymph # (Auto) Not Reportable [place] # (Auto) Not Reportable Baso # (Auto) Not Reportable Total Counted 100 Seg Neutrophils % 47.0 (38-70) % Band Neutrophils % 12.0 H (3-7) % Lymphocytes % (Manual) 20.0 L (25-45) % Monocytes % (Manual) 11.0 (2-11) % Eosinophils % (Manual) 3.0 (2-4) % Basophils % (Manual) 1.0 (0-1) % Metamyelocytes % 4.0 H (-0) % Myelocytes % 2.0 H (-0) % Neutrophils # (Manual) 3009 (1318-5555) /uL Nucleated RBCs 1 H ( - 0) #/Diff Platelet Estimate Adequate on smear RBC Morphology Normal morphology Anisocytosis PT (9.4-12.5) SECONDS INR (0.9-1.3) APTT (25.1-36.5) SECONDS Sodium 128 L 131 L (137-145) mmol/L Potassium 3.7 3.8 (3.4-5.1) mmol/L Chloride 102 103 (98-107) mmol/L Carbon Dioxide 25 24 (22-32) mmol/L BUN 17 14 (9-20) mg/dL Creatinine 0.41 L 0.45 L (0.66-1.25) mg/dL Estimated GFR > 60 > 60 (>60) mL/min BUN/Creatinine Ratio 41.5 H 31.1 H (6-22) Glucose 69 L 133 H (80-110) mg/dL Calcium 8.1 L 8.1 L (8.4-10.2) mg/dL Magnesium 1.7 (1.6-2.3) mg/dL Total Bilirubin (0.2-1.3) mg/dL AST (17-59) IU/L ALT (<50) IU/L Alkaline Phosphatase (38-126) U/L Total Protein (6.3-8.2) g/dL Albumin (3.5-5.0) g/dL Globulin (1.7-4.1) g/dL Albumin/Globulin Ratio (1.0-2.8) Blood Type Antibody Screen Crossmatch [facility] Narrative Medical decision making narrative: Patient discharged here 2 days ago for rectal bleeding anemia receiving blood transfusions did have EGD and colonoscopy as well. Patient returns for continued dizziness weakness and dark stools. Patient is not on any blood thinners. Patient does have metastatic prostate cancer, Mets to the brain. Please see discharge summary below. 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 Pertinent findings: WBC 8.3 hemoglobin 7.4 sodium 131 BUN 19 creatinine 0.46 AST 85 ALT 11 Independently reviewed EKG sinus tachycardia rate 118 Imaging studies independently reviewed: None indicated at this time Consultations: 4:36 p.m., Spoke with hospitalist, Dr. Bennett who will admit patient Treatments: Blood transfusion normal saline Re-evaluations: 4:36 p.m. blood pressure and heart rate improving. Patient agrees for admission and blood transfusion Discussion: Appropriate for admission for blood transfusion and observation Diagnosis: GI bleed/anemia Critical Care Time Critical Care Time Attestation: Critical Care Time 35 minutes: Critical care time is separate from other billable procedures. This critical care time includes consultation with family and other consulting doctors, review of records, and interpretation of data from labs, EKGs, imaging, etc. Discharge Plan Departure Patient Disposition: Admitted as Observation Clinical Impression: Anemia Qualifiers: Anemia type: unspecified type Qualified Code(s): D64.9 - Anemia, unspecified Admit Date/Time: 01/06/24 10:22 Admit Provider: Luis Bennett
--- NOTE | 2024-01-03 15:28 | EKG_ITS ---
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
[2024-01-03] MEDS: PANTOPRAZOLE 40 MG VIAL 80 MG IV (15:31)
[2024-01-03 16:15] LABS: Add Manual Diff / Slide Review YES; Hematocrit 22.1 % (41-53); Hemoglobin 7.4 g/dL (13.5-17.5); Mean Corpuscular HGB Conc 33.4 % (30-36); Mean Corpuscular Hemoglobin 28.4 PG (26-34); Mean Corpuscular Volume 84.8 fL (80-100); Platelet Count 293 X10^3/uL (150-400); Red Blood Cell Count 2.61 X10^6/uL (4.5-5.9); White Blood Cell Count 8.3 X10^3/uL (4.5-11.0)
[2024-01-03 16:20] LABS: INR 1.1 (0.9-1.3); Prothrombin Time 13.1 SECONDS (9.4-12.5)
[2024-01-03 16:23] LABS: PTT Partial Thromboplastin Tim 39 SECONDS (25.1-36.5)
[2024-01-03 16:24] LABS: Alanine Aminotransferase 11 IU/L (<50); Albumin 2.1 g/dL (3.5-5.0); Albumin Globulin Ratio 0.8 (1.0-2.8); Alkaline Phosphatase 418 U/L (38-126); Aspartate Aminotransferase 85 IU/L (17-59); BUN Creatinine Ratio 41.3 (6-22); Bilirubin Total 0.2 mg/dL (0.2-1.3); Blood Urea Nitrogen 19 mg/dL (9-20); Calcium 7.8 mg/dL (8.4-10.2); Carbon Dioxide 26 mmol/L (22-32); Chloride 102 mmol/L (98-107); Estimated Glomerular Filt Rate > 60 mL/min (>60); Globulin 2.5 g/dL (1.7-4.1); Glucose 136 mg/dL (80-110); HEMOLYSIS < 15 (0-50); Potassium 3.8 mmol/L (3.4-5.1); Sodium 131 mmol/L (137-145); Total Protein 4.6 g/dL (6.3-8.2)
[2024-01-03 16:31] LABS: Anisocytosis 2+; Neutrophils Absolute Manual 6142 /uL (3000-5900); Nucleated Red Blood Cells 2 #/Diff; Total Cells Counted 100
--- NOTE | 2024-01-03 16:42 | PC.NURSE ---
During US guided IV placement patient reports I feel faint patient lying in supine position. Patient vasovagel reaction, provider Fabiano aware. Patient heart rate dropped into 60's blood pressure 60/40's. Patient maintained conversation. IV fluids opened back up per Dr Mario for additional 500ml.
--- NOTE | 2024-01-03 17:26 | P.HP_ITS ---
History of Present Illness History of Present Illness Date Patient Seen: 01/03/24 Time Patient Seen: 17:46 Chief complaint: Hypotension, dark stool Narrative: He was discharged 12/31: The patient is a 75-year-old male with history of metastatic cancer presented with a rectal bleeding. This is primarily rectal blood. He initially required 2 units of blood on the day of admission and another 2 units in the following day. The patient had resolution of his rectal bleeding. The patient was seen by by surgery and underwent a colonoscopy on December 29 which was unremarkable. EGD was also performed and was unremarkable. The patient was monitored for an additional 24 hours and had brown stool and a stable hemoglobin at 9. His iron was slightly low at 42. He was also quite constipated on, and this appears to be a chronic issue for him. The bloody received was irradiated. He was followed by [facility] with ongoing potential planning for ongoing therapy. He was had gamma knife to the the brain for WINDERMAN metastases. S: He presents with a new H/O weakness and recurrent melena this AM. No CP or dyspnea. No abdomen pain or emesis. He remains DNR. [facility] Social History household members: spouse and children Smoking Status: Never smoker alcohol intake: never eating out: 1-3 times/week Type(s) of exercise: walking Meds Home Medications and Allergies Home Medications Medication Instructions Recorded Confirmed Type ASPIRIN (#ASPIR 81) 81 mg PO DAILY ##0 04/07/11 01/03/24 History Fish Oil (Fish Oil 500 MG Softgel) 2,000 mg PO QDAY ##0 09/05/11 01/03/24 History [MENS MULTIPLE VIT.] 1 tab PO DAILY ##0 09/05/11 01/03/24 History metformin 500 mg tablet,extended 1,000 mg PO BID ##0 09/05/11 01/03/24 History release 24 hr (Glucophage XR) acetaminophen 500 mg tablet 1,000 mg PO Q6H PRN Pain (Scale 12/29/23 01/03/24 History (Tylenol Extra Strength) Score 4-6) bisacodyl 10 mg rectal suppository 10 mg WA DAILY PRN Constipation 12/29/23 01/03/24 History calcium citrate 200 mg 1 tab PO DAILY 12/29/23 01/03/24 History calcium-vitamin D3 3.125 mcg (125 unit) tablet duloxetine 60 mg capsule,delayed 60 mg PO DAILY 12/29/23 01/03/24 History release insulin glargine 100 unit/mL (3 12 unit SUBCUT BEDTIME 12/29/23 01/03/24 History mL) subcutaneous pen (Lantus Solostar U-100 Insulin) lisinopril 20 mg tablet 20 mg PO DAILY PRN Hypertension 12/29/23 01/03/24 History magnesium oxide 400 mg PO DAILY 12/29/23 01/03/24 History mirtazapine 7.5 mg tablet 7.5 mg PO ONCE PM 12/29/23 01/03/24 History polyethylene glycol 3350 17 gram 17 g PO DAILY PRN Constipation 12/29/23 01/03/24 History oral powder packet (Miralax) pregabalin 82.5 mg tablet, 82.5 mg PO BEDTIME 12/29/23 01/03/24 History extended release 24 hr pantoprazole 40 mg tablet,delayed 40 mg PO DAILY #30 tabs 01/01/24 01/03/24 Rx release (Protonix) Allergies Allergy/AdvReac Type Severity Reaction Status Date / Time No Known Drug Allergies Allergy Verified 01/03/24 15:18 Review of Systems Review of Systems Narrative: All else reviewed and otherwise unremarkable except as noted in the history and physical. Exam Vital Signs (past 8 hours): - 01/03/24 15:14 01/03/24 15:25 01/03/24 15:30 Temperature Pulse Rate 118 H 116 H 118 H Respiratory Rate 22 23 23 Blood Pressure 116/55 L Pulse Oximetry 79 L 100 100 Oxygen Delivery Method Room Air 01/03/24 15:30 01/03/24 15:32 01/03/24 15:52 Temperature 96.4 F L Pulse Rate 119 H 64 Respiratory Rate 23 20 Blood Pressure 100/57 L 100/57 L Pulse Oximetry 100 100 Oxygen Delivery Method Room Air 01/03/24 15:52 01/03/24 15:59 01/03/24 15:59 Temperature Pulse Rate 82 Respiratory Rate 21 Blood Pressure 60/34 L 69/40 L Pulse Oximetry 100 Oxygen Delivery Method 01/03/24 16:00 01/03/24 16:00 01/03/24 16:04 Temperature Pulse Rate 91 H 100 H Respiratory Rate 20 23 Blood Pressure 75/46 L Pulse Oximetry 100 100 Oxygen Delivery Method 01/03/24 16:04 01/03/24 16:10 01/03/24 16:10 Temperature Pulse Rate 93 H Respiratory Rate 19 Blood Pressure 87/52 L 96/54 L Pulse Oximetry 100 Oxygen Delivery Method 01/03/24 16:14 01/03/24 16:14 01/03/24 16:20 Temperature Pulse Rate 97 H 96 H Respiratory Rate 24 19 Blood Pressure 107/57 L Pulse Oximetry 100 100 Oxygen Delivery Method 01/03/24 16:20 01/03/24 16:30 01/03/24 16:30 Temperature Pulse Rate 100 H Respiratory Rate 20 Blood Pressure 110/56 L 113/60 Pulse Oximetry 100 Oxygen Delivery Method 01/03/24 16:40 01/03/24 16:40 01/03/24 16:50 Temperature Pulse Rate 101 H Respiratory Rate 19 Blood Pressure 118/60 121/58 L Pulse Oximetry 100 Oxygen Delivery Method 01/03/24 16:50 Temperature Pulse Rate 103 H Respiratory Rate 18 Blood Pressure Pulse Oximetry 100 Oxygen Delivery Method Oxygen Delivery Method Room Air Narrative Exam Narrative: NAD, alert and oriented, fluent speech, calm. He is cachectic, PALE, and appears chronically ill in appearance. Normocephalic skull, EOMI, anicteric sclera, symmetric pupils. Oropharynx unremarkable, no droop. Neck supple, midline trachea, no adenopathy. Lungs clear, normal rate and effort. Heart regular, no murmur gallop or rub. Abdomen is soft, non distended and non tender. Extremities are free of edema. Skin is free of rash or lesions. Joints are not swollen or deformed. Judgment appears to be normal. Objective ECG Impression: Sinus tachycardia Nonspecific T wave abnormality Labs 01/03/24 15:57 01/03/24 15:57 Labs: Laboratory Results - last 24 hr 01/03/24 15:57 WBC 8.3 RBC 2.61 L Hgb 7.4 L Hct 22.1 L MCV 84.8 D MCH 28.4 MCHC 33.4 RDW 21.0 H Plt Count 293 Neut % (Auto) Not Reportable Lymph % (Auto) Not Reportable [place] % (Auto) Not Reportable Eos % (Auto) Not Reportable Baso % (Auto) Not Reportable Lymph # (Auto) Not Reportable [place] # (Auto) Not Reportable Baso # (Auto) Not Reportable Total Counted 100 Seg Neutrophils % 70.0 Band Neutrophils % 4.0 Lymphocytes % (Manual) 18.0 L Monocytes % (Manual) 4.0 Eosinophils % (Manual) 1.0 L Basophils % (Manual) 2.0 H Metamyelocytes % 1.0 H Neutrophils # (Manual) 6142 H Nucleated RBCs 2 H RBC Morphology See below Anisocytosis 2+ H PT 13.1 H INR 1.1 APTT 39 H Sodium 131 L Potassium 3.8 Chloride 102 Carbon Dioxide 26 BUN 19 Creatinine 0.46 L Estimated GFR > 60 BUN/Creatinine Ratio 41.3 H Glucose 136 H Calcium 7.8 L Total Bilirubin 0.2 AST 85 H ALT 11 Alkaline Phosphatase 418 H Total Protein 4.6 L Albumin 2.1 L Globulin 2.5 Albumin/Globulin Ratio 0.8 L Blood Type B Positive Antibody Screen Negative Crossmatch See Detail Assessment & Plan Assessment & Plan narrative: 1. Recurrent melena, present on admission and active. 2. Acute blood loss anemia, present on admission and active. 3. 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 Stable. 4. Diabetes mellitus, type 2. Stable. 5. Hypertension. Stable. 6. Painful diabetic neuropathy. Stable. 7. Depression. Stable. 8. Severe protein calorie malnutrition. PLAN: -NPO -restart IV Protonix -2 units PRBC tonight (he gets irradiated) -monitor Hg -Consider repeat EGD. DNR Observation status anticipate at least 1 night of hospital care. ANDRZEJ: possibly 01/03 Time-Based Coding :: 35 min spent with patient and on the chart (including review of chart, obtaining history, exam, reviewing outside data, placing orders, documenting exam and treatment plan, and counseling patient) on 01/02. Quality VTE Deep Vein Thrombosis/Pulmonary Embolism Present on Admission: No MIPS - Admit I confirm the patient?s Advance Care Plan is present, Code status is documented, Surrogate decision maker is in patient?s record [If Yes, STOP here]: Yes MIPS - Meds 'Current medications' to include all prescriptions, exea-git-bkobvik products, herbals, cannabis/cannabidiol products, and vitamin/mineral/dietary (nutritional) supplements. I have utilized all available resources to obtain, update, or review the patient?s current medications. [If Yes, STOP here]: Yes
--- NOTE | 2024-01-03 18:17 | PC.NURSE ---
First unit of blood up at 1731, he is tolerating this well. VSS. in room and patient is on tele and NPO. No rectal bleeding thus far.
[2024-01-03] MEDS: PANTOPRAZOLE 40 MG VIAL IV (20:05)
[2024-01-03] MEDS: ACETAMINOPHEN 325 MG TABLET 650 MG PO (20:05)
[2024-01-04] VITALS (7 sets, daily range): BP systolic 112–123; BP diastolic 51–64; PULSE 111–119; RESP 14–19; TEMP 36.4–37.1; O2SAT 98–100
[2024-01-04] MEDS: DEXTROSE 5%-0.9% NS 1,000 ML 100 ML IV (00:51)
[2024-01-04] MEDS: ACETAMINOPHEN 325 MG TABLET 650 MG PO ×4 (01:35→19:42)
[2024-01-04 04:01] LABS: Hematocrit 29.7 % (41-53); Hemoglobin 10.1 g/dL (13.5-17.5); Mean Corpuscular Hemoglobin 27.9 PG (26-34); Mean Corpuscular Volume 82.1 fL (80-100); Platelet Count 284 X10^3/uL (150-400); Red Blood Cell Count 3.62 X10^6/uL (4.5-5.9); Red Cell Distribution Width 18.1 % (11.6-14.8); White Blood Cell Count 7.4 X10^3/uL (4.5-11.0)
[2024-01-04 04:10] LABS: BUN Creatinine Ratio 47.7 (6-22); Blood Urea Nitrogen 21 mg/dL (9-20); Calcium 7.8 mg/dL (8.4-10.2); Carbon Dioxide 23 mmol/L (22-32); Chloride 105 mmol/L (98-107); Estimated Glomerular Filt Rate > 60 mL/min (>60); Glucose 148 mg/dL (80-110); HEMOLYSIS < 15 (0-50); Potassium 3.9 mmol/L (3.4-5.1); Sodium 131 mmol/L (137-145)
--- NOTE | 2024-01-04 06:20 | PC.NURSE ---
Patient A & O x 4, anxious at times, restless, slept on and off for short periods. Tylenol given x 2 for c/o pain to noam ankles with adequate relief. Patient had moderate amt of watery, dark red/maroon stool x1, occult blood positive. Patient tolerated 2 units of PRBC. D5NS currently infusing.
[2024-01-04] MEDS: PANTOPRAZOLE 40 MG VIAL IV ×2 (08:20→20:14)
[2024-01-04] MEDS: DULOXETINE 30 MG CAPSULE 60 MG PO (10:14)
--- NOTE | 2024-01-04 11:02 | CM.DANOTE ---
Patient is a 73 yo male who was Re-admitted OBS Status on 01/03/24 for recurrent GI Bleed. Pt has MCR and REG PPO for insurance and his PCP is Rudi Johnson in [facility]. EMR was reviewed. Per , pt with hx of prostate CA with mets to the bone and brain and admitted for GI bleed and needing multiple units of blood. Pt and spouse interested in Hospice information. Pt was just discharged home a couple days ago on 01/01/24 to home after Surgeon completed scope and no active bleed shown and was treated conservatively. SW met bedside with pt and spouse and explained role and they confirm they live in [facility] and their adult son Benjamin lives with them and is supportive and recently spouse's cousin moved in to help as well. Pt getting active Oncology tx through Dr. Sterling at [facility] and was recently hospitalized at [facility] for a few days. Pt's DPOA is his spouse Racheal who is very capable and involved in pt's care. They confirm they remain interested in Hospice Info Visit just to determine their possible options as they currently are continuing to get Onc Tx through [facility] but want to determine if further treatment is even an option as pt has been very weak. [facility] referral had been made earlier this week prior to pt's initial discharge home and they are scheduled for Info Visit with [facility] on Sat01/08/24 this coming week. Spouse states since pt's multiple Gamma Knife procedures he has had difficulty getting his strength back. Pt is still very A&O and able to participate in discussion but very drowsy and weak. Pt had just started with [facility] but has only had one visit and has no hx of SNF. [facility] confirms they would need new referral/orders to work with pt after discharge not just Resumption Orders. New referral faxed and F2F completed but not faxed yet. [facility] confirms they received the new referral. PT ordered and pending. Pt and spouse confirm their preference remains to discharge home with new [facility] and some family assist and SW provided Senior Resource Guidebook as spouse considering the potential for CG assist at home and would attempt to use their LTC insurance for in-home help. Plan: SW to follow for PT eval and confirmation of safe plan of home with new referral sent to [facility]. F2F, orders, and d/c summ will need to be sent to [facility] at discharge and spouse has in-home CG list to review in case needed. SW to follow for any further identified discharge planning needs. JENNIFER Gaffney Discharge Planning/Care Management CM Discharge Assessment Start: 01/04/24 10:59 Freq: Status: Active Protocol: Document 01/04/24 10:59 BF (Rec: 01/04/24 11:02 BF [id number]) Discharge Planning Assessment Assigned Review Engineer JENNIFER Galloway DPOA/Assigned Designee Name spouse Racheal Contact Information [phone] Advance Directives? Yes Advance Directives on File Yes History Provided By Patient,Family Member, Significant Other,Medical Record Has Patient been admitted in last 30 Yes days? Comment recently discharged home on Prior Living Arrangements House Household Members spouse,children Comment adult son lives with them and spouse's cousin recently moved in to help out some Type of transporation used prior to Relies on Others admit Independent with ADL's Yes: mostly Is patient alert and oriented? Yes Needs Assistance With Meal Prep,Managing Medications ,Home Chores / Shopping Caregiver for Another No Community Services used prior to IV Therapy admission: Comment Established with [facility] at baseline DME Already Rented / Owned FWW / Walker,Cane Patient/Family Preference Home with Home Health Comment PT eval to confirm home with spouse assist and [facility] and maybe CGs Barriers to Discharge No Discharge Plan Home with Home Health Community Services Physical Therapy Transportation Arrangement spouse bedside and can transport Referrals Initiated Home Health,Other Additional Comment [facility] referral made for Info Visit, scheduled for next Sat01/08/24. New referral sent to [facility] as pt just started with them and then admitted If patient plan is home with home health Yes : Has signed face to face form been completed? Medicare Choice List Provided Yes Medicare choice list reviewed on patient,family electronic tablet with SNF/HH Preference [facility] Updated in Patient Room with Yes name and ext. # of Review Engineer Review Status In Process Please Provide Date Initial DC 01/04/24 Assessment Was Performed Next Review Type Continued Stay Review
[2024-01-04 12:07] LABS: Hematocrit 29.4 % (41-53)
[2024-01-04] MEDS: INSULIN LISPRO 100 UNIT/ML 3ML VIAL SUBCUT (12:25)
--- NOTE | 2024-01-04 14:17 | PM.PN.1 ---
Subjective Subjective Interval history: 73 M admitted with recurrent GI bleeding. EGD/c-scope was negative last admit. Given 2U PRBC, stopped asa. Hg stable at 10.0 today but did have bloody bowel movement overnight. If h/h continues to downtrend will get CTA of his abdomen and pelvis to see if there is a possible spot for IR interventions. Exam Vital Signs (past 8 hours): - 01/04/24 08:51 01/04/24 12:00 Temperature 98.6 F 98.7 F Pulse Rate 115 H Respiratory Rate 16 14 Blood Pressure 123/59 L 112/58 L Pulse Oximetry 99 99 Oxygen Delivery Method Room Air Oxygen Flow Rate 0 Narrative Exam Narrative: NAD, alert and oriented, fluent speech, calm. He is cachectic, PALE, and appears chronically ill in appearance. Normocephalic skull, EOMI, anicteric sclera, symmetric pupils. Oropharynx unremarkable, no droop. Neck supple, midline trachea, no adenopathy. Lungs clear, normal rate and effort. Heart tachycardic and regular, no murmur gallop or rub. Abdomen is soft, non distended and non tender. Extremities are free of edema. Skin is free of rash or lesions. Joints are not swollen or deformed. Judgment appears to be normal. Objective Labs 01/04/24 12:00 01/04/24 03:55 Labs: Laboratory Results - last 24 hr 01/03/24 01/04/24 01/04/24 15:57 03:55 12:00 WBC 8.3 7.4 RBC 2.61 L 3.62 L Hgb 7.4 L 10.1 L 10.0 L Hct 22.1 L 29.7 L 29.4 L MCV 84.8 D 82.1 MCH 28.4 27.9 MCHC 33.4 34.0 RDW 21.0 H 18.1 H Plt Count 293 284 Neut % (Auto) Not Reportable Lymph % (Auto) Not Reportable [place] % (Auto) Not Reportable Eos % (Auto) Not Reportable Baso % (Auto) Not Reportable Lymph # (Auto) Not Reportable [place] # (Auto) Not Reportable Baso # (Auto) Not Reportable Total Counted 100 Seg Neutrophils % 70.0 Band Neutrophils % 4.0 Lymphocytes % (Manual) 18.0 L Monocytes % (Manual) 4.0 Eosinophils % (Manual) 1.0 L Basophils % (Manual) 2.0 H Metamyelocytes % 1.0 H Neutrophils # (Manual) 6142 H Nucleated RBCs 2 H RBC Morphology See below Anisocytosis 2+ H PT 13.1 H INR 1.1 APTT 39 H Sodium 131 L 131 L Potassium 3.8 3.9 Chloride 102 105 Carbon Dioxide 26 23 BUN 19 21 H Creatinine 0.46 L 0.44 L Estimated GFR > 60 > 60 BUN/Creatinine Ratio 41.3 H 47.7 H Glucose 136 H 148 H Calcium 7.8 L 7.8 L Total Bilirubin 0.2 AST 85 H ALT 11 Alkaline Phosphatase 418 H Total Protein 4.6 L Albumin 2.1 L Globulin 2.5 Albumin/Globulin Ratio 0.8 L Blood Type B Positive Antibody Screen Negative Crossmatch See Detail [facility] Social History household members: spouse and children Smoking Status: Never smoker alcohol intake: never eating out: 1-3 times/week Type(s) of exercise: walking Assessment & Plan Assessment & Plan narrative: 1. Recurrent melena, present on admission and active. 2. Acute blood loss anemia, present on admission and active. 3. 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 Stable. 4. Diabetes mellitus, type 2. Stable. 5. Hypertension. Stable. 6. Painful diabetic neuropathy. Stable. 7. Depression. Stable. 8. Severe protein calorie malnutrition. PLAN: -okay for diet -restarted IV Protonix, continue 40 mg IV BID -2 units PRBC with appropriate response. continue to follow q12 for now. -If h/h continues to fall, obtain CT angio, if no source consider transfer for double balloon enteroscopy? DNR Observation status to continue, possible inpatient if continued h/h decline ANDRZEJ: possible discharge home 01/04 if h/h stable Time-Based Coding :: [TOTAL MINUTES] spent with patient and on the chart (including review of chart, obtaining history, exam, reviewing outside data, placing orders, documenting exam and treatment plan, and counseling patient) on [DATE]. Quality VTE Deep Vein Thrombosis/Pulmonary Embolism Present on Admission: No
[2024-01-04] MEDS: MIRTAZAPINE 15 MG TABLET 7.5 MG PO (20:13)
[2024-01-04] MEDS: PREGABALIN 75 MG CAPSULE PO (20:13)
[2024-01-04] MEDS: INSULIN GLARGINE 100 UNIT/ML 3ML PEN 12 UNIT SUBCUT (20:14)
[2024-01-05] VITALS: BP 111/56; PULSE 107; RESP 16; TEMP 36; O2SAT 98
[2024-01-05] MEDS: ACETAMINOPHEN 325 MG TABLET 650 MG PO ×4 (03:33→22:02)
[2024-01-05 04:42] LABS: Hematocrit 25.7 % (41-53); Hemoglobin 8.9 g/dL (13.5-17.5); Mean Corpuscular HGB Conc 34.4 % (30-36); Mean Corpuscular Hemoglobin 28.4 PG (26-34); Mean Corpuscular Volume 82.6 fL (80-100); Platelet Count 288 X10^3/uL (150-400); Red Blood Cell Count 3.12 X10^6/uL (4.5-5.9); White Blood Cell Count 4.7 X10^3/uL (4.5-11.0)
[2024-01-05 04:53] LABS: BUN Creatinine Ratio 41.5 (6-22); Blood Urea Nitrogen 17 mg/dL (9-20); Calcium 8.1 mg/dL (8.4-10.2); Carbon Dioxide 25 mmol/L (22-32); Chloride 102 mmol/L (98-107); Estimated Glomerular Filt Rate > 60 mL/min (>60); Glucose 69 mg/dL (80-110); HEMOLYSIS < 15 (0-50); Potassium 3.7 mmol/L (3.4-5.1); Sodium 128 mmol/L (137-145)
[2024-01-05 08:00] VITALS: BP 120/60; PULSE 119; RESP 14; TEMP 36.9; O2SAT 100
--- NOTE | 2024-01-05 08:09 | DI.CT.S_ITS ---
PROCEDURE: CT ANGIO ABDOMEN PELVIS INDICATIONS: localize GI bleeding, negative EGD and colonoscopy, and ct scan TECHNIQUE: After the administration of intravenous contrast, 2.5 mm sections acquired from the diaphragm to the iliac crests. 10 mm maximum intensity projection (MIP) coronal and sagittal reformats were then performed. For radiation dose reduction, the following was used: automated exposure control. COMPARISON: [facility], CT, CT ANGIO ABD/PEL GI BLEED, 12/29/2023, 2:51. FINDINGS: Image quality: Diagnostic. Abdominal aorta: No aortic aneurysm or evidence of acute aortic syndrome. Mesenteric arteries: Patent without hemodynamically significant stenosis. Renal arteries: Patent without hemodynamically significant stenosis. Lower chest: Small bilateral pleural effusions are seen, left larger than right. Overlying atelectasis can be seen. ABDOMEN: Liver: No solid mass. Gallbladder: No radiopaque gallstones or wall thickening. Biliary ducts: No biliary dilation. Pancreas: No ductal dilation. Spleen: Size is within normal limits. Adrenal Glands: No adrenal nodules. Kidneys and Ureters: No hydronephrosis. No solid mass. No complex renal cystic lesion which requires follow up. Stomach and Bowel: In this patient with this given history, scrutiny is given to the bowel for a potential source of bleeding. No findings of active extravasation can be seen. No suspicious lesions are seen. There is mild generalized rectal wall thickening seen. Note is made of a superior and medial location of the cecum. No dilated loops of small bowel are seen. The stomach is decompressed at the time of this study, limiting its evaluation. Peritoneum: No abnormal intraperitoneal fluid. No free air. Ventral Wall: No hernia. Generalized abdominal wall edema is seen. Abdominal Nodes: No retroperitoneal or mesenteric adenopathy by size criteria. Vessels: Aorta, as above. Normal IVC. PELVIS: Pelvic Organs: Prostatectomy. Bladder: Unremarkable. Pelvic Nodes: No enlarged lymph nodes. Miscellaneous: No inguinal hernias are seen. Bones: Extensive osteoblastic metastatic disease is again seen. Age-appropriate bony degenerative changes are seen. IMPRESSION: No source of bleeding is seen on this study. Small bilateral pleural effusions are seen, left larger than right. Anasarca Additional findings: Prostatectomy Extensive osteoblastic metastatic disease Dictated by: Santana Bruner M.D. on 01/05/2024 at 13:58 Approved by: Santana Bruner M.D. on 01/05/2024 at 14:02
[2024-01-05] MEDS: DULOXETINE 30 MG CAPSULE 60 MG PO (08:43)
[2024-01-05] MEDS: MAGNESIUM OXIDE 400 MG TABLET PO (08:44)
[2024-01-05] MEDS: SODIUM CHLORIDE 0.9% FLUSH 10 ML IV ×2 (08:44→21:04)
[2024-01-05] MEDS: PANTOPRAZOLE 40 MG VIAL IV ×2 (08:44→20:48)
[2024-01-05 12:00] VITALS: BP 109/60; PULSE 119; RESP 14; TEMP 36.9; O2SAT 100
--- NOTE | 2024-01-05 12:36 | PT.IIE ---
Physical Therapy Inpatient Evaluation/Re-Eval M1 PT/OT-IP Prior Functional Status Start: 01/05/24 10:19 Freq: NEEDED Status: Active Protocol: Document 01/05/24 11:57 MB (Rec: 01/05/24 12:36 MB [id number]) Medical Review Prior Functional Status Medical History Reviewed Yes Diet/Fluid Consistency [facility] Communication WNLs, often corrects pt's answers if they are not correct about PLOF and DME Mobility and Gait Assistance from and rollator for mobility and ADLs , reports 3 falls since brain surgery October 15, 2023 Activities of Daily Living and IADL's See above Social History Household Members spouse,children Living Arrangements House Number of Floors (Floors) One Floor Number of Stairs To Enter/Railing? 5-6 steps with left rail ascend to enter home Home Environment Standard Height Toilet,Tub/ Shower Home Equipment Four Wheel Walker,Straight Cane,Bedside Commode,Tub Transfer Bench,Hospital Bed, Grab Bars Near Toilet Employment Status Retired M2 PT-IP Current Condition Start: 01/05/24 10:19 Freq: NEEDED Status: Active Protocol: Document 01/05/24 11:57 MB (Rec: 01/05/24 12:36 MB [id number]) Physical Therapy Current Condition Current Condition Evaluation Date 01/05/24 Treatment Diagnosis Bloody stool M3 PT-IP Subjective Start: 01/05/24 10:19 Freq: NEEDED Status: Active Protocol: Document 01/05/24 11:57 MB (Rec: 01/05/24 12:36 MB [id number]) Subjective Physical Therapy Visit Type Type Initial Evaluation Visit Start Time 11:57 Visit Stop Time 12:17 Number of DIRECTOR EMERGENCY DEPARTMENT Visits 0 Physical Therapy Visit Comments Patient Comments Pt reports a headache that is better with ice on neck and base of skull and even better once up to chair with PT Therapy Pain Assessment Pain When Pain Assessed At Rest Pain Present Pain Present Pain Reported Location head Intensity 2 Scale Used Simmons-Johnson (Faces) M4 PT-IP Mobility and Gait Start: 01/05/24 10:19 Freq: NEEDED Status: Active Protocol: Document 01/05/24 11:57 MB (Rec: 01/05/24 12:36 MB [id number]) PT-Bed Mobility Assessment Rolling Type of Rolling Roll to Left Level of Assist Minimal Assistance,1 Person Assistance Supine to Sit Supine to Sit Moderate Assistance,1 Person Assistance,Bedrails Scooting Scooting to Edge of Bed Minimal Assistance PT-Transfer Assessment Sit to and From Stand Sit to and from Stand Minimal Assistance,1 Person Assistance,Use of Upper Extremities Equipment Transfer Assistive Device Gait Belt,Front Wheeled Walker Orthotic/Prosthetic Devices or Brace: No Transfers Transfer Destination Chair Transfer Technique Stepping Transfer Ability Level of Assist Moderate Assistance,1 Person Assistance,Use of Upper Extremities Comments Mobility Comments BP and HR in right UE: supine 107/54, 126; standing 73/41, 153 and pt wishes to step to chair and sit up for lunch and neck. HR remains high and drops no lower than the upper 130s in sitting, PT speaks with doctor, sitting nearby pt and alerted them to call for nsg if pt gets any increased pain or symptoms in sitting, PT sets up lunch. O2 is in the low to mid 90s on RA . B with global edema noted today, worse in arms. Gait Assessment Gait Gait Assistance Required: Moderate Assistance,1 Person Assist Distance (Feet) 3 Able to Maintain Weight Bearing Status Yes During Gait Assistive Devices Assistive Device Gait Belt,Front Wheeled Walker Orthotic/Prosthetic Devices or Brace: No Gait Deviations General Gait Pattern Decreased Stride Length, Decreased Feet Clearance,Wide Based Gait Factors Limiting Gait Function Factors Limiting Gait Function Incoordination,Poor Balance, Poor Safety Awareness PT-Balance Assessment Sitting Balance and Reactions Static Sitting Balance Ability Fair Dynamic Sitting Balance Ability Fair Standing Balance and Reactions Static Standing Balance Ability Fair Dynamic Standing Balance Ability Fair Device Used RW M5 PT-IP Objective Assessments Start: 01/05/24 10:19 Freq: NEEDED Status: Active Protocol: Document 01/05/24 11:57 MB (Rec: 01/05/24 12:36 MB [id number]) Orientation Orientation/Cognition Level of Alertness Alert Orientation Name,Age,Birthday,Month,Year, Day of Week,Place,Situation Language Function Ability No Deficits Noted Safety Awareness Decreased Safety Awareness Memory Description Short Term Impaired,Longterm Impaired Gross Range of Motion Upper Extremity ROM Impairments Defer to OT Lower Extremity ROM Impairments Functionally observed only today, can further assess in future treatments. and pt deny right sided weakness s/p left parieto-temporal craniotomy Strength Comments Strength Comments Functionally assessed only on eval d/t severe orthostasis and tachycardia, can look at in future PT treatments Coordination Assessment Gross Coordination Gross Coordination Impaired Assessment Coordination Comments No formal coordination or sensory testing today Sensation Assessment Comments Sensation Comments As above M7 PT-IP Assessment and Plan Start: 01/05/24 10:19 Freq: NEEDED Status: Active Protocol: Document 01/05/24 11:57 MB (Rec: 01/05/24 12:36 MB [id number]) PT Summary Assessment and Plan Potential Rehabilitation Potential Fair Status of Condition at Evaluation Unstable Summary Impairments Pain,ROM,Strength,Balance, Coordination,Sensation, Cognition,Bed Mobility, Transfers,Gait,Activity Tolerance Progress Towards Goals Slow Progress due to Medical Issues Assessment Summary Pt is a 73 y/o male with history of metastatic prostate CA to brain and craniotomy 10/15/23 who was adm d/t bloody stools. assists patient at home and he has had some falls since brain sx. He is severely orthostatic and tachycardic this a.m. Left up in chair with nearby and PT sets up pt's lunch and PT lets doctor know PT findings this date. Alarm donned and PT also speaks with nsg. Pt's headache pain is better in sitting and ice reapplied to neck and occiput. His B pupils are large. Overall, pt's medical presentation is a barrier to functional mobility . Unsure prognosis in setting of metastatic CA. May need increased assist at d/c, possible SNF pending plan. Goals Bed Mobility Goal Contact Guard Assistance Transfer Goal Contact Guard Assistance Gait Goal Contact Guard Assistance Gait Distance 50 Other Goals Pt will ascend and descend 5 steps with left rail ascend and no more than CGA to allow safe home entrance. Days to Meet Goals 10 Frequency of Treatment Frequency Of Treatment Once a Day Treatment Plan Physical Therapy Treatment Plan Bed Mobility Training,Transfer Training,Gait Training, Therapeutic Exercise,Balance Retraining,Discharge Planning, Hot or Cold Pack,Neuromuscular Re-ed,Coordination Retraining ,Manual Therapy Precautions Other Precautions Severe orthostasis and tachycardia Recommendations To Nursing Amount of Assist Needed 1 Person Assist Discharge Recommendations PT Discharge Recommendations Home with 01/10 Assist Available,Home Health,Home vs SNF Transportation Needs at Discharge Private Vehicle,Wheelchair/ Cabulance
[2024-01-05 13:27] LABS: Hematocrit 26.6 % (41-53); Hemoglobin 9.1 g/dL (13.5-17.5)
--- NOTE | 2024-01-05 16:27 | P.PN_ITS ---
Subjective Subjective Interval history: 73 M admitted with recurrent GI bleeding. EGD/c-scope was negative last admit. Given 2U PRBC, stopped asa. Hg dropped to 8.9 today but reports no bowel movements since yesterday morning. CTA without obvious source. Exam Vital Signs (past 8 hours): - 01/05/24 12:00 Temperature 98.5 F Pulse Rate 119 H Respiratory Rate 14 Blood Pressure 109/60 Pulse Oximetry 100 Oxygen Delivery Method Room Air Oxygen Flow Rate 0 Narrative Exam Narrative: NAD, alert and oriented, fluent speech, calm. He is cachectic, PALE, and appears chronically ill in appearance. Normocephalic skull, EOMI, anicteric sclera, symmetric pupils. Oropharynx unremarkable, no droop. Neck supple, midline trachea, no adenopathy. Lungs clear, normal rate and effort. Heart tachycardic and regular, no murmur gallop or rub. Abdomen is soft, non distended and non tender. Extremities trace bilateral LE edema. Skin is free of rash or lesions. Joints are not swollen or deformed. Judgment appears to be normal. Objective Labs 01/05/24 13:20 01/05/24 04:25 Labs: Laboratory Results - last 24 hr 01/05/24 01/05/24 04:25 13:20 WBC 4.7 RBC 3.12 L Hgb 8.9 L 9.1 L Hct 25.7 L 26.6 L MCV 82.6 MCH 28.4 MCHC 34.4 RDW 19.0 H Plt Count 288 Sodium 128 L Potassium 3.7 Chloride 102 Carbon Dioxide 25 BUN 17 Creatinine 0.41 L Estimated GFR > 60 BUN/Creatinine Ratio 41.5 H Glucose 69 L Calcium 8.1 L PFSH Social History household members: spouse and children Smoking Status: Never smoker alcohol intake: never eating out: 1-3 times/week Type(s) of exercise: walking Assessment & Plan Assessment & Plan narrative: 1. Recurrent melena, present on admission and active. 2. Acute blood loss anemia, present on admission and active. 3. 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 Stable. 4. Diabetes mellitus, type 2. Stable. 5. Hypertension. Stable. 6. Painful diabetic neuropathy. Stable. 7. Depression. Stable. 8. Severe protein calorie malnutrition. 9. Anasarca PLAN: -okay for diet, CTA negative for active bleeding. -restarted IV Protonix, continue 40 mg IV BID -2 units PRBC with appropriate response 2 days ago. continue to follow q12 for now. Hg 10 > 8.9 > 9.1 this afternoon. -If h/h continues to fall, given no source consider transfer for double balloon enteroscopy? -start iron supplementation -wedding day coordinator consultation DNR Will continue to monitor given recurrent bleeding of unknown source at this time and recent trends. If stable Time-Based Coding :: [TOTAL MINUTES] spent with patient and on the chart (including review of chart, obtaining history, exam, reviewing outside data, placing orders, documenting exam and treatment plan, and counseling patient) on [DATE]. Quality VTE Deep Vein Thrombosis/Pulmonary Embolism Present on Admission: No
[2024-01-05 17:00] VITALS: BP 105/57; PULSE 114; RESP 16; TEMP 36.2; O2SAT 98
[2024-01-05] MEDS: FERROUS SULFATE 325 MG TABLET PO (17:17)
[2024-01-05] MEDS: INSULIN LISPRO 100 UNIT/ML 3ML VIAL SUBCUT (17:22)
[2024-01-05] MEDS: MIRTAZAPINE 15 MG TABLET 7.5 MG PO (18:56)
[2024-01-05 20:33] VITALS: BP 115/59; PULSE 112; RESP 16; TEMP 36.2; O2SAT 98
[2024-01-05] MEDS: PREGABALIN 75 MG CAPSULE PO (20:48)
[2024-01-05] MEDS: INSULIN GLARGINE 100 UNIT/ML 3ML PEN 12 UNIT SUBCUT (20:49)
[2024-01-06] VITALS (9 sets, daily range): BP systolic 104–127; BP diastolic 53–66; PULSE 111–120; RESP 16–19; TEMP 36.1–36.6; O2SAT 97–100
[2024-01-06] MEDS: ACETAMINOPHEN 325 MG TABLET 650 MG PO ×4 (04:03→22:35)
[2024-01-06 06:27] LABS: Magnesium 1.7 mg/dL (1.6-2.3)
[2024-01-06 08:00] LABS: Hematocrit 23.2 % (41-53); Hemoglobin 7.9 g/dL (13.5-17.5); Mean Corpuscular Hemoglobin 28.4 PG (26-34); Mean Corpuscular Volume 83.7 fL (80-100); Platelet Count 305 X10^3/uL (150-400); Red Blood Cell Count 2.78 X10^6/uL (4.5-5.9); White Blood Cell Count 5.1 X10^3/uL (4.5-11.0)
[2024-01-06 08:09] LABS: BUN Creatinine Ratio 31.1 (6-22); Blood Urea Nitrogen 14 mg/dL (9-20); Calcium 8.1 mg/dL (8.4-10.2); Carbon Dioxide 24 mmol/L (22-32); Chloride 103 mmol/L (98-107); Estimated Glomerular Filt Rate > 60 mL/min (>60); Glucose 133 mg/dL (80-110); HEMOLYSIS < 15 (0-50); Potassium 3.8 mmol/L (3.4-5.1); Sodium 131 mmol/L (137-145)
[2024-01-06 08:13] LABS: Add Manual Diff / Slide Review YES
[2024-01-06] MEDS: PANTOPRAZOLE 40 MG VIAL IV ×2 (08:14→21:03)
[2024-01-06] MEDS: DULOXETINE 30 MG CAPSULE 60 MG PO (08:14)
[2024-01-06] MEDS: FERROUS SULFATE 325 MG TABLET PO ×2 (08:14→16:33)
[2024-01-06] MEDS: SODIUM CHLORIDE 0.9% FLUSH 10 ML IV ×2 (08:15→21:03)
[2024-01-06] MEDS: MAGNESIUM OXIDE 400 MG TABLET PO (08:18)
[2024-01-06] MEDS: INSULIN LISPRO 100 UNIT/ML 3ML VIAL SUBCUT ×3 (08:19→22:04)
[2024-01-06 08:22] LABS: Neutrophils Absolute Manual 3009 /uL (3000-5900); Nucleated Red Blood Cells 1 #/Diff; Total Cells Counted 100
[2024-01-06 08:23] LABS: Platelet Estimate Adequate on smear; RBC Morphology Normal Morphology
--- NOTE | 2024-01-06 10:07 | PT-IP ANOTE ---
Pt discussed in rounds and he con't tachycardia this a.m. His Hgb has dropped since last date to 7.9. Will hold PT today.
--- NOTE | 2024-01-06 11:25 | DIET.CONS ---
Dietary Consultation Note Admission Date: 01/06/2024 10:22 Assessment: 73 y M re-admitted for GI bleed. PMH of metastatic prostate cancer and diabetes type 2. Nutrition consulted for severe protein calorie malnutrition. Per FEED MILL TENDER note- pt scheduled for hospice info visit later this week. Pt currently getting active oncology treatment at [facility]. Average recorded PO intakes <50%. Pt w/ previous low intakes for 3 weeks prior to initial admission on 12/30/23. Met w/ pt at bedside, open to trying different protein supplementation options besides Ensure. Ht: 175.26 cm Wt: 54.6 kg BMI: 17.7 UBW: 54 kg on 12/29/23, 58.559 kg on 12/16/23 Last BM: 01/04/24 (01/04/24 14:35) MNA: 4 Micheal Score: 17 Diet: 01/04/24 Breakfast General (Regular) Diet Diet Modifications: Food Texture: Level 7 - Regular Liquid Consistency: Level 0 - Thin Nutrition Percent Meal Consumed 50% 01/06/24 09:00 Percent Meal Consumed 50% 01/05/24 18:00 Percent Meal Consumed 25% 01/05/24 06:00 Percent Meal Consumed 25% 01/04/24 17:59 Percent Meal Consumed 50% 01/04/24 13:52 Labs: RBC 2.78 X10^6/uL (4.5-5.9) L 01/06/24 05:45 Hgb 7.9 g/dL (13.5-17.5) L 01/06/24 05:45 Hct 23.2 % (41-53) L 01/06/24 05:45 Creatinine 0.45 mg/dL (0.66-1.25) L 01/06/24 05:45 Nutrition Diagnosis: Severe acute on chronic protein calorie malnutrition r/t inadequate oral intake and increased nutrient needs (calorie-protein) as evidenced by 6.8% weight loss within 1 month (severe), metastatic prostate cancer, BMI underweight for age (17.7) Interventions: -Protein smoothie BID EER: [id number] (30-35 kcals/kg) 70-80 g protein (1.25-1.5 g/kg per PCM) Monitoring/Evaluations: po intakes, BG, protein supplement tolerance Electronically Signed by: Anastasia Lozano 01/06/24 11:25 Clinical Dietitian [address] [id number]
--- NOTE | 2024-01-06 13:59 | P.PN_ITS ---
Subjective Subjective Interval history: 73 M admitted with recurrent GI bleeding. EGD/c-scope was negative last admit. Now at 3U PRBC this admission after Hg dropped to 7.9 today but reports no bowel movements today. He is tachycardic, orthostatic. HR improved with 1U PRBC transfusion today slightly. Awaiting discussion with GI about possible transfer for further evaluation for bleeding source. Exam Vital Signs (past 8 hours): - 01/06/24 08:00 01/06/24 09:56 01/06/24 10:16 Temperature 97.1 F L 97.6 F 97.4 F L Pulse Rate 120 H 118 H 115 H Respiratory Rate 18 16 16 Blood Pressure 115/66 104/53 L 106/57 L Pulse Oximetry 100 Oxygen Flow Rate 0 01/06/24 12:00 Temperature 97.5 F L Pulse Rate 113 H Respiratory Rate 19 Blood Pressure 116/62 Pulse Oximetry 97 Oxygen Flow Rate 0 Oxygen Delivery Method Room Air Oxygen Flow Rate 0 Narrative Exam Narrative: NAD, alert and oriented, fluent speech, calm. He is cachectic, PALE, and appears chronically ill in appearance. Normocephalic skull, EOMI, anicteric sclera, symmetric pupils. Oropharynx unremarkable, no droop. Neck supple, midline trachea, no adenopathy. Lungs clear, normal rate and effort. Heart tachycardic and regular, no murmur gallop or rub. Abdomen is soft, non distended and non tender. Extremities trace bilateral LE edema. Skin is free of rash or lesions. Joints are not swollen or deformed. Judgment appears to be normal. Objective Labs 01/06/24 05:45 01/06/24 05:45 Labs: Laboratory Results - last 24 hr 01/03/24 01/06/24 15:57 05:45 WBC 5.1 RBC 2.78 L Hgb 7.9 L Hct 23.2 L MCV 83.7 MCH 28.4 MCHC 34.0 RDW 19.0 H Plt Count 305 Neut % (Auto) Not Reportable Lymph % (Auto) Not Reportable [place] % (Auto) Not Reportable Eos % (Auto) Not Reportable Baso % (Auto) Not Reportable Lymph # (Auto) Not Reportable [place] # (Auto) Not Reportable Baso # (Auto) Not Reportable Total Counted 100 Seg Neutrophils % 47.0 Band Neutrophils % 12.0 H Lymphocytes % (Manual) 20.0 L Monocytes % (Manual) 11.0 Eosinophils % (Manual) 3.0 Basophils % (Manual) 1.0 Metamyelocytes % 4.0 H Myelocytes % 2.0 H Neutrophils # (Manual) 3009 Nucleated RBCs 1 H Platelet Estimate Adequate on smear RBC Morphology Normal morphology Sodium 131 L Potassium 3.8 Chloride 103 Carbon Dioxide 24 BUN 14 Creatinine 0.45 L Estimated GFR > 60 BUN/Creatinine Ratio 31.1 H Glucose 133 H Calcium 8.1 L Magnesium 1.7 Blood Type B Positive Antibody Screen Negative Crossmatch See Detail [facility] Social History household members: spouse and children Smoking Status: Never smoker alcohol intake: never eating out: 1-3 times/week Type(s) of exercise: walking Assessment & Plan Assessment & Plan narrative: 1. Recurrent melena, present on admission and active. 2. Acute blood loss anemia, present on admission and active. 3. 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 Stable. 4. Diabetes mellitus, type 2. Stable. 5. Hypertension. Stable. 6. Painful diabetic neuropathy. Stable. 7. Depression. Stable. 8. Severe protein calorie malnutrition. 9. Anasarca PLAN: -okay for diet, CTA negative for active bleeding. -restarted IV Protonix, continue 40 mg IV BID -2 units PRBC with appropriate response 2 days ago. 1U PRBC today (3U total thus far) continue to follow q12 for now. Hg 10 > 8.9 > 9.1 > 7.9 this AM -Awaiting to discuss with GI for possible enteroscopy. -start iron supplementation -fence gate assembler consultation DNR Will continue to monitor given recurrent bleeding of unknown source at this time and recent trends. Possible transfer as noted above Inpatient status. Time-Based Coding :: [TOTAL MINUTES] spent with patient and on the chart (including review of chart, obtaining history, exam, reviewing outside data, placing orders, documenting exam and treatment plan, and counseling patient) on [DATE]. Quality VTE Deep Vein Thrombosis/Pulmonary Embolism Present on Admission: No
--- NOTE | 2024-01-06 15:04 | CM.DPC ---
DCP Cont: Per MD, pt continues to have his H&H drop and had CT angio and getting another 1-2 units today and consulting medical for likely need of hospital transfer. Calender Machine Operator remains in contact with [facility] and awaiting confirmation of acceptance and open bed. Per PT yesterday, recommending HH vs SNF pending progress due to pt's bp and weakness. Laverne Rodriguez MSW
[2024-01-06 17:49] LABS: Hematocrit 27.9 % (41-53); Hemoglobin 9.5 g/dL (13.5-17.5)
[2024-01-06] MEDS: PREGABALIN 75 MG CAPSULE PO (21:02)
[2024-01-06] MEDS: MIRTAZAPINE 15 MG TABLET 7.5 MG PO (21:02)
[2024-01-06] MEDS: INSULIN GLARGINE 100 UNIT/ML 3ML PEN 12 UNIT SUBCUT (22:03)
[2024-01-07] VITALS: BP 116/58; PULSE 105; RESP 16; TEMP 36.4; O2SAT 97
[2024-01-07 04:00] VITALS: BP 123/58; PULSE 104; RESP 16; TEMP 36.4; O2SAT 97
[2024-01-07 06:18] LABS: BUN Creatinine Ratio 23.9 (6-22); Blood Urea Nitrogen 11 mg/dL (9-20); Calcium 8.3 mg/dL (8.4-10.2); Carbon Dioxide 29 mmol/L (22-32); Chloride 105 mmol/L (98-107); Estimated Glomerular Filt Rate > 60 mL/min (>60); Glucose 62 mg/dL (80-110); HEMOLYSIS < 15 (0-50); Potassium 3.5 mmol/L (3.4-5.1); Sodium 134 mmol/L (137-145)
[2024-01-07 06:21] LABS: Hematocrit 27.4 % (41-53); Hemoglobin 9.5 g/dL (13.5-17.5); Mean Corpuscular HGB Conc 34.5 % (30-36); Mean Corpuscular Hemoglobin 28.5 PG (26-34); Mean Corpuscular Volume 82.5 fL (80-100); Platelet Count 336 X10^3/uL (150-400); Red Blood Cell Count 3.32 X10^6/uL (4.5-5.9); Red Cell Distribution Width 17.7 % (11.6-14.8); White Blood Cell Count 6.5 X10^3/uL (4.5-11.0)
[2024-01-07 06:23] LABS: Add Manual Diff / Slide Review YES
[2024-01-07 06:39] LABS: Magnesium 1.7 mg/dL (1.6-2.3)
[2024-01-07 06:59] LABS: Neutrophils Absolute Manual 4485 /uL (3000-5900); Nucleated Red Blood Cells 1 #/Diff; Platelet Morphology Comment N; Total Cells Counted 100
[2024-01-07 07:06] LABS: RBC Morphology Normal Morphology
[2024-01-07] MEDS: ACETAMINOPHEN 325 MG TABLET 650 MG PO ×3 (07:09→17:38)
[2024-01-07 08:00] VITALS: BP 129/67; PULSE 110; RESP 19; TEMP 36.3; O2SAT 99
[2024-01-07] MEDS: FERROUS SULFATE 325 MG TABLET PO ×2 (08:34→17:36)
[2024-01-07] MEDS: DULOXETINE 30 MG CAPSULE 60 MG PO (08:38)
[2024-01-07] MEDS: MAGNESIUM OXIDE 400 MG TABLET PO (08:38)
[2024-01-07] MEDS: PANTOPRAZOLE 40 MG VIAL IV (08:38)
[2024-01-07] MEDS: SODIUM CHLORIDE 0.9% FLUSH 10 ML IV (08:39)
--- NOTE | 2024-01-07 11:16 | PM.DS.1 ---
History of Present Illness History of Present Illness Date Patient Seen: 01/07/24 Time Patient Seen: 11:16 Chief complaint: Hypotension, dark stool Narrative: Per admitting provider: He was discharged 12/31: The patient is a 75-year-old male with history of metastatic cancer presented with a rectal bleeding. This is primarily rectal blood. He initially required 2 units of blood on the day of admission and another 2 units in the following day. The patient had resolution of his rectal bleeding. The patient was seen by by surgery and underwent a colonoscopy on December 29 which was unremarkable. EGD was also performed and was unremarkable. The patient was monitored for an additional 24 hours and had brown stool and a stable hemoglobin at 9. His iron was slightly low at 42. He was also quite constipated on, and this appears to be a chronic issue for him. The bloody received was irradiated. He was followed by [facility] with ongoing potential planning for ongoing therapy. 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 Discharge Providers Provider Date of admission: 01/06/24 10:22 Discharge Date: 01/07/24 Primary care physician: Doctor Emeka MD Consults: 01/04/24 10:55 Consult to Physical Therapy Evaluate & Treat Comment: Physician Instructions: Evaluate and Treat 01/05/24 16:35 Consult to Dietitian, Adult Routine Comment: Reason For Exam: protein calorie malnutrition Discharge provider: Hernan Hernandes DO Summary Hospital Course Discharge Diagnosis: 1. Recurrent melena, present on admission and active. 2. Acute blood loss anemia, present on admission and active. 3. 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 Stable. 4. Diabetes mellitus, type 2. Stable. 5. Hypertension. Stable. 6. Painful diabetic neuropathy. Stable. 7. Depression. Stable. 8. Severe protein calorie malnutrition. 9. Anasarca Hospital Course: This is a 73-year-old male with a past medical history of diabetes, hypertension, metastatic prostate cancer followed at with a recent admission for GI bleed with negative colonoscopy and EGD during that admission who presented with recurrent melena. Since admission he has required 3 units of blood and continues to have melanotic stools despite holding aspirin and continuing IV Protonix. This was discussed with the [facility] and he was recommended for transfer for further evaluation and possible enteroscopy As he does have continued melena. started on iron supplementation while admitted this time. His last transfusion was yesterday, January 05, in the hydraulic modeling engineer. Hemoglobin improved to 9.5, and is stable this morning at 9.5 again. In the afternoon on 01/06 another melenotic stool, repeat h/h was down to 8.9 again. He remains mildly tachycardic with a heart rate of 110 approximately, and is orthostatic but improved since yesterday after his transfusion. He was accepted for transfer on January 05, but was not ultimately transferred until the once a bed was available. Time Spent with Patient Time spent: Greater than 30 minutes Exam Vital Signs (past 8 hours): - 01/07/24 04:00 01/07/24 08:00 Temperature 97.6 F 97.4 F L Pulse Rate 104 H 110 H Respiratory Rate 16 19 Blood Pressure 123/58 L 129/67 Pulse Oximetry 97 99 Oxygen Flow Rate 0 Oxygen Delivery Method Room Air Oxygen Flow Rate 0 Narrative Exam Narrative: NAD, alert and oriented, fluent speech, calm. He is cachectic, PALE, and appears chronically ill in appearance. Normocephalic skull, EOMI, anicteric sclera, symmetric pupils. Oropharynx unremarkable, no droop. Neck supple, midline trachea, no adenopathy. Lungs clear, normal rate and effort. Heart tachycardic and regular, no murmur gallop or rub. Abdomen is soft, non distended and non tender. Extremities trace bilateral LE edema. Skin is free of rash or lesions. Joints are not swollen or deformed. Judgment appears to be normal. Objective Labs 01/07/24 11:52 01/07/24 05:57 Labs: Laboratory Results - last 24 hr 01/03/24 01/06/24 01/07/24 15:57 17:35 05:57 WBC 6.5 RBC 3.32 L Hgb 9.5 L 9.5 L Hct 27.9 L 27.4 L MCV 82.5 MCH 28.5 MCHC 34.5 RDW 17.7 H Plt Count 336 Neut % (Auto) Not Reportable Lymph % (Auto) Not Reportable [place] % (Auto) Not Reportable Eos % (Auto) Not Reportable Baso % (Auto) Not Reportable Lymph # (Auto) Not Reportable [place] # (Auto) Not Reportable Baso # (Auto) Not Reportable Total Counted 100 Seg Neutrophils % 63.0 Band Neutrophils % 6.0 Lymphocytes % (Manual) 22.0 L Atypical Lymphs % 4.0 H Monocytes % (Manual) 5.0 Neutrophils # (Manual) 4485 Nucleated RBCs 1 H Plt Morphology Comment N RBC Morphology Normal morphology Sodium 134 L Potassium 3.5 Chloride 105 Carbon Dioxide 29 BUN 11 Creatinine 0.46 L Estimated GFR > 60 BUN/Creatinine Ratio 23.9 H Glucose 62 L Calcium 8.3 L Magnesium 1.7 Crossmatch See Detail [facility] Social History household members: spouse and children Smoking Status: Never smoker alcohol intake: never eating out: 1-3 times/week Type(s) of exercise: walking Discharge Plan Discharge Plan Patient Disposition: [facility] Provider Discharge Comment: See discharge summary Discharge Health Status Multidrug resistant organism: No MDRO Diet/Activity/Treatments Diet: Diet as Tolerated and Regular Liquid consistency: Normal/Thin Food texture: Regular Activity: As tolerated, no restrictions. Discharge Data Primary Care Provider: Miscellaneous,Doctor Quality VTE Deep Vein Thrombosis/Pulmonary Embolism Present on Admission: No
[2024-01-07 12:00] VITALS: BP 123/69; PULSE 115; RESP 16; TEMP 36.3; O2SAT 98
[2024-01-07 12:09] LABS: Hematocrit 25.8 % (41-53); Hemoglobin 8.9 g/dL (13.5-17.5)
--- NOTE | 2024-01-07 13:45 | PT.IPTN ---
Current Diagnoses Gastrointestinal hemorrhage, unspecified (01/06/24) Physical Therapy Treatment Note M2 PT-IP Current Condition Start: 01/05/24 10:19 Freq: NEEDED Status: Active Protocol: Document 01/05/24 11:57 MB (Rec: 01/05/24 12:36 MB [id number]) Physical Therapy Current Condition Current Condition Evaluation Date 01/05/24 Treatment Diagnosis Bloody stool M3 PT-IP Subjective Start: 01/05/24 10:19 Freq: NEEDED Status: Active Protocol: Document 01/07/24 13:45 AB (Rec: 01/07/24 15:01 AB [id number]) Subjective Physical Therapy Visit Type Type Treatment Note Visit Start Time 13:45 Visit Stop Time 14:05 Number of BODY SPECIALIST Visits 0 Physical Therapy Visit Comments Patient Comments agreeable to do PT Therapy Pain Assessment Pain Present Pain Present Denied Pain M4 PT-IP Mobility and Gait Start: 01/05/24 10:19 Freq: NEEDED Status: Active Protocol: Document 01/07/24 13:45 AB (Rec: 01/07/24 15:01 AB [id number]) PT-Bed Mobility Assessment Supine to Sit Supine to Sit Standby Assistance Sit to Supine Sit to Supine Standby Assistance PT-Transfer Assessment Sit to and From Stand Sit to and from Stand Contact Guard Assistance,1 Person Assistance,Use of Upper Extremities Equipment Transfer Assistive Device Gait Belt,Front Wheeled Walker Orthotic/Prosthetic Devices or Brace: No Comments Mobility Comments pt supine in bed and agreeable to do PT. BP in supine: 117/ 63. completed supine to sit SBA. able to sit on EOB SBA. no c/o dizziness/ lightheadedness. BP checked: 117/62. pt completed sit to stand CGA and ambulated in room using FWW ~ 60 ft CGA. pt went back to bed. BP checked: 122/69. completed sit to supine SBA. positioned pt in bed. call light and table placed within reach. Gait Assessment Gait Gait Assistance Required: Contact Guard Assist Distance (Feet) 60 Able to Maintain Weight Bearing Status Yes During Gait Assistive Devices Assistive Device Gait Belt,Front Wheeled Walker Orthotic/Prosthetic Devices or Brace: No Gait Deviations General Gait Pattern Decreased Stride Length, Decreased Feet Clearance Factors Limiting Gait Function Factors Limiting Gait Function Decreased Activity Tolerance, Decreased Strength,Poor Balance,Poor Safety Awareness M5 PT-IP Objective Assessments Start: 01/05/24 10:19 Freq: NEEDED Status: Active Protocol: Document 01/05/24 11:57 MB (Rec: 01/05/24 12:36 MB [id number]) Orientation Orientation/Cognition Level of Alertness Alert Orientation Name,Age,Birthday,Month,Year, Day of Week,Place,Situation Language Function Ability No Deficits Noted Safety Awareness Decreased Safety Awareness Memory Description Short Term Impaired,Usp Impaired Gross Range of Motion Upper Extremity ROM Impairments Defer to OT Lower Extremity ROM Impairments Functionally observed only today, can further assess in future treatments. and pt deny right sided weakness s/p left parieto-temporal craniotomy Strength Comments Strength Comments Functionally assessed only on eval d/t severe orthostasis and tachycardia, can look at in future PT treatments Coordination Assessment Gross Coordination Gross Coordination Impaired Assessment Coordination Comments No formal coordination or sensory testing today Sensation Assessment Comments Sensation Comments As above M6 PT-IP Treatment Start: 01/05/24 10:19 Freq: NEEDED Status: Active Protocol: Document 01/07/24 13:45 AB (Rec: 01/07/24 15:01 AB [id number]) Physical Therapy Treatment Education Education Provided Safety M7 PT-IP Assessment and Plan Start: 01/05/24 10:19 Freq: NEEDED Status: Active Protocol: Document 01/07/24 13:45 AB (Rec: 01/07/24 15:01 AB [id number]) PT Summary Assessment and Plan Potential Rehabilitation Potential Fair Summary Impairments Pain,ROM,Strength,Balance, Coordination,Sensation,Tone, Cognition,Bed Mobility, Transfers,Gait,Activity Tolerance Assessment Summary pt requiring CGA with mobility and will have his spouse to assist him at home. pt may go home when medically stable. will continue to assess progress. Goals Bed Mobility Goal Independent Transfer Goal Independent,Front Wheeled Walker Gait Goal Independent,Front Wheel Walker Gait Distance 150 Other Goals Pt will ascend and descend 5 steps with left rail ascend and no more than CGA to allow safe home entrance. Days to Meet Goals 10 Frequency of Treatment Frequency Of Treatment Once a Day Treatment Plan Physical Therapy Treatment Plan Bed Mobility Training,Transfer Training,Gait Training, Therapeutic Exercise,Balance Retraining,Discharge Planning, Hot or Cold Pack,Neuromuscular Re-ed,Coordination Retraining ,Manual Therapy Recommendations To Nursing Amount of Assist Needed 1 Person Assist Discharge Recommendations PT Discharge Recommendations Home with Assistance,Home Health Transportation Needs at Discharge Private Vehicle,Wheelchair/ Cabulance
[2024-01-07 16:00] VITALS: BP 118/66; PULSE 104; RESP 16; TEMP 36.2; O2SAT 100
[2024-01-07 20:00] VITALS: BP 120/63; PULSE 104; RESP 20; TEMP 36.4; O2SAT 99
== END 2024-01-07 21:28 | disposition short-term general hospital (02) | DRG 377 ==
LOC: ED 16:20 → AC 16:36
PROVIDERS: Internal Medicine; Admitting Provider Hospitalist; Emergency Provider Emergency Medicine; Referring Provider Emergency Medicine; Visit Provider Hospitalist
DX: K92.1 Melena (principal); E43 Unspecified severe protein-calorie malnutrition; D62 Acute posthemorrhagic anemia; Z68.1 Body mass index [BMI] 19.9 or less, adult; C79.51 Secondary malignant neoplasm of bone; C79.31 Secondary malignant neoplasm of brain; C61 Malignant neoplasm of prostate; I10 Essential (primary) hypertension; E11.40 Type 2 diabetes mellitus with diabetic neuropathy, unspecified; F32.A Depression, unspecified; R60.1 Generalized edema; Z98.890 Other specified postprocedural states; Z79.4 Long term (current) use of insulin; Z79.84 Long term (current) use of oral hypoglycemic drugs
CPT/HCPCS: 36415; 36430; 74174; 80048; 80053; 82962; 83735; 85007; 85014; 85018; 85025; 85027; 85610; 85730; 86850; 86900; 86901; 93005; 96365; 97116; 97161; 99284; 99291; G0378; P9016; J1815; J2470

== ENCOUNTER → 2024-03-27 13:03 | Outpatient (CLI) | payer MEDICARE, OTHER, SELFPAY ==
[2024-01-03 17:11] VITALS: BMI 17.7
[2024-03-27 14:51] LABS: Hematocrit 27.4 % (41-53); Hemoglobin 9.3 g/dL (13.5-17.5); Mean Corpuscular Hemoglobin 31.7 PG (26-34); Mean Corpuscular Volume 93.2 fL (80-100); Platelet Count 389 X10^3/uL (150-400); Red Blood Cell Count 2.94 X10^6/uL (4.5-5.9); Red Cell Distribution Width 20.4 % (11.6-14.8)
[2024-03-27 14:52] LABS: Add Manual Diff / Slide Review YES
[2024-03-27 15:06] LABS: Neutrophils Absolute Manual 2920 /uL (3000-5900); Total Cells Counted 100
[2024-03-27 15:07] LABS: Anisocytosis 2+
== END ==
PROVIDERS: Referring Provider Physician Assistant; Visit Provider Physician Assistant
DX: D64.81 Anemia due to antineoplastic chemotherapy (principal); T45.1X5A Adverse effect of antineoplastic and immunosuppressive drugs, initial encounter
CPT/HCPCS: 36415; 85007; 85025

== ENCOUNTER → 2024-08-12 08:34 | Outpatient (CLI) | payer MEDICARE, OTHER, SELFPAY ==
[2024-01-03 17:11] VITALS: BMI 17.7
[2024-08-12 09:49] LABS: Add Manual Diff / Slide Review NO; Basophils Absolute Auto 0 /uL (0-100); Basophils Percent Auto 0.8 % (0-2); Eosinophils Absolute Auto 100 /uL (0-450); Eosinophils Percent Auto 1.5 % (2-4); Hematocrit 26.1 % (41-53); Hemoglobin 8.2 g/dL (13.5-17.5); Lymphocytes Absolute Auto 700 /uL (1100-4500); Lymphocytes Percent Auto 12.1 % (25-40); Mean Corpuscular HGB Conc 31.6 % (30-36); Mean Corpuscular Hemoglobin 25.8 PG (26-34); Mean Corpuscular Volume 81.5 fL (80-100); Monocytes Absolute Auto 500 /uL (0-900); Monocytes Percent Auto 8.2 % (3-14); Neutrophils Absolute Auto 4400 /uL (1500-7000); Neutrophils Percent Auto 77.4 % (50-75); Platelet Count 444 X10^3/uL (150-400); Red Cell Distribution Width 19.5 % (11.6-14.8); White Blood Cell Count 5.7 X10^3/uL (4.5-11.0)
[2024-08-12 10:16] LABS: Alanine Aminotransferase 10 IU/L (<50); Albumin 3.8 g/dL (3.5-5.0); Albumin Globulin Ratio 1.4 (1.0-2.8); Alkaline Phosphatase 256 U/L (38-126); Aspartate Aminotransferase 15 IU/L (17-59); BUN Creatinine Ratio 23.1 (6-22); Bilirubin Total 0.4 mg/dL (0.2-1.3); Blood Urea Nitrogen 18 mg/dL (9-20); Calcium 9.1 mg/dL (8.4-10.2); Carbon Dioxide 28 mmol/L (22-32); Chloride 103 mmol/L (98-107); Estimated Glomerular Filt Rate > 60 mL/min (>60); Globulin 2.7 g/dL (1.7-4.1); Glucose 173 mg/dL (70-99); HEMOLYSIS < 15 (0-50); Potassium 4.4 mmol/L (3.4-5.1); Sodium 139 mmol/L (137-145); Total Protein 6.5 g/dL (6.3-8.2)
[2024-08-12 10:42] LABS: Prostate Specific Antigen 41.2 ng/mL (0.10-4.00)
== END ==
PROVIDERS: PCP Family Medicine; Referring Provider Nurse Practitioner Family; Visit Provider Nurse Practitioner Family
DX: C61 Malignant neoplasm of prostate (principal)
CPT/HCPCS: 36415; 80053; 84153; 85025

== ENCOUNTER 2024-12-07 06:24 | Inpatient (IN) | payer MEDICARE, OTHER, SELFPAY ==
[2024-01-03 17:11] VITALS: BMI 17.7
[2024-12-07] VITALS (33 sets, daily range): BP systolic 107–172; BP diastolic 59–84; PULSE 81–111; RESP 12–22; TEMP 36.7–37.2; O2SAT 92–99; BMI 22.6
--- NOTE | 2024-12-07 | DI.RAD.S_ITS ---
PROCEDURE: XR HIP W PEL IF DONE LT 2V INDICATIONS: LT IMNAILLING TECHNIQUE: 5 intraoperative fluoroscopic views of the hip were acquired. COMPARISON: [facility], CR, XR HIP W PEL LT 2V, 12/07/2024, 6:58. FINDINGS: Bones: Intraoperative fluoroscopic images shows internal fixation of left femur with intramedullary jorge and fixation screws in place. IMPRESSION: Fluoro guidance was provided intraoperatively for internal fixation of left femur performed by ordering physician. Dictated by: Omar Peoples M.D. on 12/07/2024 at 16:19 Approved by: Omar Peoples M.D. on 12/07/2024 at 16:19
--- NOTE | 2024-12-07 06:46 | ED.LOWEXIN ---
HPI - Extremity Injury (Lower) <John Phillips MD - Last Filed: 12/08/24 00:45> General Chief Complaint: Extremity Injury, Lower Stated Complaint: Left hip pain Time Seen by Provider: 12/07/24 06:36 Source: patient and EMS Mode of arrival: EMS History of Present Illness HPI Narrative: 74-year-old male with a history of metastatic prostate cancer who is being treated with chemotherapy at [facility] presents with sudden left hip pain. He was taken some steps and using the wall as balance and after a step heard a loud crack that his son also heard. He took another step and again heard a pop and was in excruciating pain to the point of not being able to take another step. He is brought in via paramedics and currently resting in the bed. He denies any pain as long as he is laying still in bed. He denies falling and injuring any other part of his body. No other symptoms. Related Data Home Medications ?Medication ?Instructions ?Recorded ?Confirmed ASPIRIN (#ASPIR 81) 81 mg PO DAILY ##0 04/07/11 12/07/24 Fish Oil (Fish Oil 500 MG Softgel) 2,000 mg PO QDAY ##0 09/05/11 01/03/24 [MENS MULTIPLE VIT.] 1 tab PO DAILY ##0 09/05/11 12/07/24 metformin 500 mg tablet,extended 1,000 mg PO BID ##0 09/05/11 12/07/24 release 24 hr (Glucophage XR) acetaminophen 500 mg tablet 1,000 mg PO Q6H PRN Pain (Scale 12/29/23 01/06/24 (Tylenol Extra Strength) Score 4-6) bisacodyl 10 mg rectal suppository 10 mg UT DAILY PRN Constipation 12/29/23 01/03/24 calcium 200 mg (as 1 tab PO DAILY 12/29/23 01/03/24 citrate)-vitamin D3 3.125 mcg (125 unit) tablet duloxetine 60 mg capsule,delayed 60 mg PO DAILY 12/29/23 01/03/24 release insulin glargine 100 unit/mL (3 12 unit SUBCUT BEDTIME 12/29/23 12/07/24 mL) subcutaneous pen (Lantus Solostar U-100 Insulin) lisinopril 20 mg tablet 20 mg PO DAILY PRN Hypertension 12/29/23 12/07/24 Held on 12/07/24. Instructions: n/a magnesium oxide 400 mg PO DAILY 12/29/23 01/03/24 mirtazapine 7.5 mg tablet 7.5 mg PO ONCE PM 12/29/23 01/03/24 polyethylene glycol 3350 17 gram 17 g PO DAILY PRN Constipation 12/29/23 01/03/24 oral powder packet (Miralax) pregabalin 82.5 mg tablet, 82.5 mg PO BEDTIME 12/29/23 12/07/24 extended release 24 hr Allergies Allergy/AdvReac Type Severity Reaction Status Date / Time No Known Drug Allergies Allergy Verified 12/07/24 10:10 Review of Systems <John Phillips MD - Last Filed: 12/08/24 00:45> Review of Systems ROS Unobtainable: All systems reviewed & are unremarkable except as noted in HPI and below Patient History <John Phillips MD - Last Filed: 12/08/24 00:45> Social History household members: spouse and children Smoking Status: Never smoker alcohol intake: never eating out: 1-3 times/week Type(s) of exercise: walking Smoking Status: Never smoker Exam <John Phillips MD - Last Filed: 12/08/24 00:45> Narrative Exam Narrative: General: Patient appears to be in no acute distress, acting appropriately Head: normocephalic, atraumatic, HEENT: Pupils equal round reactive, eyes tracking well, neck supple, no JVD Heart: regular rate and rhythm, no murmurs, rubs, or gallops heard Lungs: clear to auscultation, no adventitious sounds Abdomen: soft , nontender, nondistended, positive bowel sounds Neurological: no focal neurological signs, moving all extremities well, alert and oriented x3, Psych: good judgment ,good insight, mood is normal. left hip exam: pain with any movement, nv intact Initial Vital Signs Initial Vital Signs: Vital Signs Pulse Rate 94 H 12/07/24 06:27 Pulse Oximetry 98 12/07/24 06:27 <Eric Fulton MD - Last Filed: 12/07/24 08:46> Initial Vital Signs Initial Vital Signs: Vital Signs Pulse Rate 94 H 12/07/24 06:27 Pulse Oximetry 98 12/07/24 06:27 Course <John Phillips MD - Last Filed: 12/08/24 00:45> Orders Ordered: Acetaminophen (Acetaminophen 325 Mg Tablet) 650 mg PO Q6H [facility] Last Admin: 12/07/24 23:06 Dose: 650 mg Documented By: Admin: 12/07/24 16:26 Dose: Not Given Documented By: MANDI Aspirin (Aspirin Ec 81 Mg Tablet) 81 mg PO BID [facility] Bisacodyl (Bisacodyl 10 Mg Supp) 10 mg UT DAILY PRN PRN Reason: Constipation Docusate Sodium (Docusate 100 Mg Capsule) 100 mg PO BID [facility] Last Admin: 12/07/24 23:06 Dose: 100 mg Documented By: TD Duloxetine HCl (Duloxetine 30 Mg Capsule.Dr) 60 mg PO DAILY [facility] Hydromorphone HCl (Hydromorphone Hcl 0.5 Mg/0.5 Ml Syringe) 1 mg IV Q3H PRN PRN Reason: Pain, Moderate (4-6) Lactated Ringer's (Lactated Ringers) 1,000 mls @ 100 mls/hr IV CONT [facility] Last Admin: 12/07/24 16:39 Dose: 100 mls/hr Documented By: MANDI Cefazolin Sodium/Dextrose (Ancef) 100 mls @ 200 mls/hr IV Q8H [facility] Stop: 12/08/24 02:59 Last Infusion: 12/07/24 20:00 Dose: Infused Documented By: Admin: 12/07/24 19:00 Dose: 200 mls/hr Documented By: ARVIND Dextrose (D10w) 100 mls @ 1,200 mls/hr IV PRN PRN PRN Reason: Hypoglycemia Insulin Human Lispro (Insulin Lispro 100 Unit/Ml 3ml Vial) 0 unit SUBCUT ACHS [facility]; Protocol Last Admin: 12/07/24 23:03 Dose: Not Given Documented By: Admin: 12/07/24 18:17 Dose: Not Given Documented By: ARVIND Morphine Sulfate (Morphine 4 Mg/Ml Inj) 1 mg IV Q2HR PRN PRN Reason: Pain, Severe (7-10) Naloxone HCl (Naloxone 0.4 Mg/Ml Vial) 0.2 mg IV Q2MIN PRN PRN Reason: Opiate Reversal Naloxone HCl (Naloxone 0.4 Mg/Ml Vial) 0.2 mg IV Q2MIN PRN PRN Reason: Opiate Reversal Non-Formulary Medication (Pregabalin) 82.5 mg PO BEDTIME [facility] Last Admin: 12/07/24 23:02 Dose: Not Given Documented By: TD Ondansetron HCl (Ondansetron 4 Mg Odt) 4 mg PO Q4HR PRN PRN Reason: Nausea And Vomiting Ondansetron HCl (Ondansetron 4 Mg/2 Ml Inj) 4 mg IV Q4HR PRN PRN Reason: Nausea And Vomiting Oxycodone HCl (Oxycodone Ir 5 Mg Tablet) 5 mg PO Q6H PRN PRN Reason: Pain, Moderate (4-6) Oxycodone HCl (Oxycodone Ir 10 Mg Tablet) 10 mg PO Q3HR PRN PRN Reason: Pain, Severe (7-10) Last Admin: 12/07/24 23:04 Dose: 10 mg Documented By: TD Discontinued Medications Acetaminophen (Acetaminophen 325 Mg Tablet) 650 mg PO Q6H PRN PRN Reason: Fever/Mild Pain (1-3) Hydrocodone Bitart/Acetaminophen (Hydrocodone/Acet 5/325 Tablet) 1 tab PO Q4H PRN PRN Reason: Pain, Moderate (4-6) Bupivacaine HCl (Bupivacaine 0.25% (Pf) 30 Ml Vial) 30 ml INJ NOW ONE Stop: 12/07/24 11:22 Last Admin: 12/07/24 11:21 Dose: 30 ml Documented By: MENG Hydromorphone HCl (Hydromorphone Hcl 0.5 Mg/0.5 Ml Syringe) 0.5 mg IV NOW ONE Stop: 12/07/24 08:31 Last Admin: 12/07/24 08:27 Dose: 0.5 mg Documented By: SACHA Hydromorphone HCl (Hydromorphone 2 Mg/Ml Syringe) 0 mg IV Q5MIN PRN PRN Reason: Pain, Moderate (4-6) Last Admin: 12/07/24 13:10 Dose: 0.25 mg Documented By: Admin: 12/07/24 13:05 Dose: 0.25 mg Documented By: Admin: 12/07/24 13:00 Dose: 0.25 mg Documented By: Admin: 12/07/24 12:51 Dose: 0.25 mg Documented By: Admin: 12/07/24 12:50 Dose: 0.25 mg Documented By: NORIS Hydromorphone HCl (Hydromorphone 2 Mg/Ml Syringe) 0 mg IV Q5MIN PRN PRN Reason: Pain, Mild (1-3) Last Admin: 12/07/24 12:40 Dose: 0.25 mg Documented By: NORIS Hydromorphone HCl (Hydromorphone Hcl 0.5 Mg/0.5 Ml Syringe) 1 mg IV Q2H PRN PRN Reason: Pain, Severe (7-10) Lactated Ringer's (Lactated Ringers) 1,000 mls @ 42 mls/hr IV CONT [facility] Last Infusion: 12/07/24 13:57 Dose: Infused Documented By: Admin: 12/07/24 11:00 Dose: 42 mls/hr Documented By: NORIS Cefazolin Sodium/Dextrose (Ancef) 100 mls @ 200 mls/hr IV NOW ONE Stop: 12/07/24 11:48 Last Infusion: 12/07/24 11:00 Dose: Infused Documented By: Admin: 12/07/24 10:34 Dose: 200 mls/hr Documented By: SOTO Acetaminophen (Ofirmev) 1,000 mg in 100 mls @ 400 mls/hr IV NOW ONE Stop: 12/07/24 11:34 Last Infusion: 12/07/24 11:09 Dose: Infused Documented By: Admin: 12/07/24 10:49 Dose: 400 mls/hr Documented By: SOTO Metformin HCl (Metformin Xr 500 Mg Tab.Er.24h) 1,000 mg PO BID [facility] Naloxone HCl (Naloxone 0.4 Mg/Ml Vial) 0.2 mg IV Q2MIN PRN PRN Reason: Opiate Reversal Ondansetron HCl (Ondansetron 4 Mg/2 Ml Inj) 4 mg IV NOW ONE Stop: 12/07/24 08:05 Last Admin: 12/07/24 08:27 Dose: 4 mg Documented By: SACHA Ondansetron HCl (Ondansetron 4 Mg/2 Ml Inj) 4 mg IV NOW PRN PRN Reason: Nausea And Vomiting Oxycodone HCl (Oxycodone Ir 5 Mg Tablet) 5 mg PO PACUNOW PRN PRN Reason: Mild or moderate pain Last Admin: 12/07/24 13:26 Dose: 5 mg Documented By: Admin: 12/07/24 12:49 Dose: 5 mg Documented By: NORIS Oxycodone HCl (Oxycodone Ir 10 Mg Tablet) 10 mg PO Q3H PRN PRN Reason: Pain, Severe (7-10) Vital Signs Vital signs: Vital Signs - 8 hr 12/07/24 06:27 12/07/24 06:28 12/07/24 06:28 Temperature Pulse Rate 94 H 93 H Respiratory Rate Blood Pressure 172/75 H Pulse Oximetry 98 98 Oxygen Delivery Method 12/07/24 06:30 12/07/24 06:30 12/07/24 06:32 Temperature 98.2 F Pulse Rate 97 H 94 H Respiratory Rate 15 18 Blood Pressure 160/76 H 172/75 H Pulse Oximetry 97 99 Oxygen Delivery Method Room Air 12/07/24 07:00 12/07/24 07:00 12/07/24 07:19 Temperature Pulse Rate 90 92 H Respiratory Rate 16 19 Blood Pressure 144/65 H Pulse Oximetry 96 93 Oxygen Delivery Method 12/07/24 07:19 12/07/24 07:30 12/07/24 07:30 Temperature Pulse Rate 92 H Respiratory Rate 22 Blood Pressure 150/68 H 142/59 H Pulse Oximetry 93 Oxygen Delivery Method <Eric Fulton MD - Last Filed: 12/07/24 08:46> Orders Ordered: Acetaminophen (Acetaminophen 325 Mg Tablet) 650 mg PO Q6H [facility] Last Admin: 12/07/24 23:06 Dose: 650 mg Documented By: Admin: 12/07/24 16:26 Dose: Not Given Documented By: MANDI Aspirin (Aspirin Ec 81 Mg Tablet) 81 mg PO BID [facility] Bisacodyl (Bisacodyl 10 Mg Supp) 10 mg UT DAILY PRN PRN Reason: Constipation Docusate Sodium (Docusate 100 Mg Capsule) 100 mg PO BID [facility] Last Admin: 12/07/24 23:06 Dose: 100 mg Documented By: TD Duloxetine HCl (Duloxetine 30 Mg Capsule.Dr) 60 mg PO DAILY [facility] Hydromorphone HCl (Hydromorphone Hcl 0.5 Mg/0.5 Ml Syringe) 1 mg IV Q3H PRN PRN Reason: Pain, Moderate (4-6) Lactated Ringer's (Lactated Ringers) 1,000 mls @ 100 mls/hr IV CONT [facility] Last Admin: 12/07/24 16:39 Dose: 100 mls/hr Documented By: MANDI Cefazolin Sodium/Dextrose (Ancef) 100 mls @ 200 mls/hr IV Q8H [facility] Stop: 12/08/24 02:59 Last Infusion: 12/07/24 20:00 Dose: Infused Documented By: Admin: 12/07/24 19:00 Dose: 200 mls/hr Documented By: ARVIND Dextrose (D10w) 100 mls @ 1,200 mls/hr IV PRN PRN PRN Reason: Hypoglycemia Insulin Human Lispro (Insulin Lispro 100 Unit/Ml 3ml Vial) 0 unit SUBCUT ACHS [facility]; Protocol Last Admin: 12/07/24 23:03 Dose: Not Given Documented By: Admin: 12/07/24 18:17 Dose: Not Given Documented By: ARVIND Morphine Sulfate (Morphine 4 Mg/Ml Inj) 1 mg IV Q2HR PRN PRN Reason: Pain, Severe (7-10) Naloxone HCl (Naloxone 0.4 Mg/Ml Vial) 0.2 mg IV Q2MIN PRN PRN Reason: Opiate Reversal Naloxone HCl (Naloxone 0.4 Mg/Ml Vial) 0.2 mg IV Q2MIN PRN PRN Reason: Opiate Reversal Non-Formulary Medication (Pregabalin) 82.5 mg PO BEDTIME [facility] Last Admin: 12/07/24 23:02 Dose: Not Given Documented By: TD Ondansetron HCl (Ondansetron 4 Mg Odt) 4 mg PO Q4HR PRN PRN Reason: Nausea And Vomiting Ondansetron HCl (Ondansetron 4 Mg/2 Ml Inj) 4 mg IV Q4HR PRN PRN Reason: Nausea And Vomiting Oxycodone HCl (Oxycodone Ir 5 Mg Tablet) 5 mg PO Q6H PRN PRN Reason: Pain, Moderate (4-6) Oxycodone HCl (Oxycodone Ir 10 Mg Tablet) 10 mg PO Q3HR PRN PRN Reason: Pain, Severe (7-10) Last Admin: 12/07/24 23:04 Dose: 10 mg Documented By: TD Discontinued Medications Acetaminophen (Acetaminophen 325 Mg Tablet) 650 mg PO Q6H PRN PRN Reason: Fever/Mild Pain (1-3) Hydrocodone Bitart/Acetaminophen (Hydrocodone/Acet 5/325 Tablet) 1 tab PO Q4H PRN PRN Reason: Pain, Moderate (4-6) Bupivacaine HCl (Bupivacaine 0.25% (Pf) 30 Ml Vial) 30 ml INJ NOW ONE Stop: 12/07/24 11:22 Last Admin: 12/07/24 11:21 Dose: 30 ml Documented By: MENG Hydromorphone HCl (Hydromorphone Hcl 0.5 Mg/0.5 Ml Syringe) 0.5 mg IV NOW ONE Stop: 12/07/24 08:31 Last Admin: 12/07/24 08:27 Dose: 0.5 mg Documented By: SACHA Hydromorphone HCl (Hydromorphone 2 Mg/Ml Syringe) 0 mg IV Q5MIN PRN PRN Reason: Pain, Moderate (4-6) Last Admin: 12/07/24 13:10 Dose: 0.25 mg Documented By: Admin: 12/07/24 13:05 Dose: 0.25 mg Documented By: Admin: 12/07/24 13:00 Dose: 0.25 mg Documented By: Admin: 12/07/24 12:51 Dose: 0.25 mg Documented By: Admin: 12/07/24 12:50 Dose: 0.25 mg Documented By: NORIS Hydromorphone HCl (Hydromorphone 2 Mg/Ml Syringe) 0 mg IV Q5MIN PRN PRN Reason: Pain, Mild (1-3) Last Admin: 12/07/24 12:40 Dose: 0.25 mg Documented By: NORIS Hydromorphone HCl (Hydromorphone Hcl 0.5 Mg/0.5 Ml Syringe) 1 mg IV Q2H PRN PRN Reason: Pain, Severe (7-10) Lactated Ringer's (Lactated Ringers) 1,000 mls @ 42 mls/hr IV CONT [facility] Last Infusion: 12/07/24 13:57 Dose: Infused Documented By: Admin: 12/07/24 11:00 Dose: 42 mls/hr Documented By: NORIS Cefazolin Sodium/Dextrose (Ancef) 100 mls @ 200 mls/hr IV NOW ONE Stop: 12/07/24 11:48 Last Infusion: 12/07/24 11:00 Dose: Infused Documented By: Admin: 12/07/24 10:34 Dose: 200 mls/hr Documented By: SOTO Acetaminophen (Ofirmev) 1,000 mg in 100 mls @ 400 mls/hr IV NOW ONE Stop: 12/07/24 11:34 Last Infusion: 12/07/24 11:09 Dose: Infused Documented By: Admin: 12/07/24 10:49 Dose: 400 mls/hr Documented By: SOTO Metformin HCl (Metformin Xr 500 Mg Tab.Er.24h) 1,000 mg PO BID [facility] Naloxone HCl (Naloxone 0.4 Mg/Ml Vial) 0.2 mg IV Q2MIN PRN PRN Reason: Opiate Reversal Ondansetron HCl (Ondansetron 4 Mg/2 Ml Inj) 4 mg IV NOW ONE Stop: 12/07/24 08:05 Last Admin: 12/07/24 08:27 Dose: 4 mg Documented By: SACHA Ondansetron HCl (Ondansetron 4 Mg/2 Ml Inj) 4 mg IV NOW PRN PRN Reason: Nausea And Vomiting Oxycodone HCl (Oxycodone Ir 5 Mg Tablet) 5 mg PO PACUNOW PRN PRN Reason: Mild or moderate pain Last Admin: 12/07/24 13:26 Dose: 5 mg Documented By: Admin: 12/07/24 12:49 Dose: 5 mg Documented By: NORIS Oxycodone HCl (Oxycodone Ir 10 Mg Tablet) 10 mg PO Q3H PRN PRN Reason: Pain, Severe (7-10) Reevaluation(s) Reevaluation #1: Case was assumed at 7:00 a.m. shift change. Patient has a history of metastatic prostate cancer. I independently confirmed that he got up this morning to walk to the bathroom and felt pain in his left thigh this was followed by a audible and palpable pop with increased pain and inability to weight bear. He is not taking anticoagulation and has been NPO today. On examination he is alert and oriented normal respiratory effort clear lungs heart sounds are normal. No gross deformity of the left lower extremity he has pain with passive range of motion of the left lower extremity localizes his pain to the proximal thigh. Distal neurovascular exam is intact. No shortening or rotation of the lower extremity. Consultations Consultation #1: At 8:15 a.m., case is discussed with Dr. Ha, orthopedics. He would like to keep the patient NPO and plan to do his surgery at the end of the day today. He would like the patient admitted to the hospitalist service. Patient is aware of the diagnosis of a femur fracture and probable operative management. He is in agreement. Consultation #2: At 8:45 a.m., case is discussed with Dr. Ozuna accepts admission Vital Signs Vital signs: Vital Signs - 8 hr 12/07/24 06:27 12/07/24 06:28 12/07/24 06:28 Temperature Pulse Rate 94 H 93 H Respiratory Rate Blood Pressure 172/75 H Pulse Oximetry 98 98 Oxygen Delivery Method 12/07/24 06:30 12/07/24 06:30 12/07/24 06:32 Temperature 98.2 F Pulse Rate 97 H 94 H Respiratory Rate 15 18 Blood Pressure 160/76 H 172/75 H Pulse Oximetry 97 99 Oxygen Delivery Method Room Air 12/07/24 07:00 12/07/24 07:00 12/07/24 07:19 Temperature Pulse Rate 90 92 H Respiratory Rate 16 19 Blood Pressure 144/65 H Pulse Oximetry 96 93 Oxygen Delivery Method 12/07/24 07:19 12/07/24 07:30 12/07/24 07:30 Temperature Pulse Rate 92 H Respiratory Rate 22 Blood Pressure 150/68 H 142/59 H Pulse Oximetry 93 Oxygen Delivery Method MDM - Extremity Injury (Lower) <John Phillips MD - Last Filed: 12/08/24 00:45> Lab Data 12/07/24 19:00 12/07/24 06:30 Labs: Lab Results 12/07/24 Range/Units 06:30 WBC 10.7 (4.5-11.0) X10^3/uL RBC 2.85 L (4.5-5.9) X10^6/uL Hgb 8.3 L (13.5-17.5) g/dL Hct 25.1 L (41-53) % MCV 88.1 (80-100) fL MCH 28.9 (26-34) PG MCHC 32.9 (30-36) % RDW 22.0 H (11.6-14.8) % Plt Count 397 (150-400) X10^3/uL Neut % (Auto) 84.9 H (50-75) % Lymph % (Auto) 6.7 L (25-40) % [place] % (Auto) 7.3 (3-14) % Eos % (Auto) 0.7 L (2-4) % Baso % (Auto) 0.4 (0-2) % Neut # (Auto) 9100 H (4199-8906) /uL Lymph # (Auto) 700 L (1044-9774) /uL [place] # (Auto) 800 (0-900) /uL Eos # (Auto) 100 (0-450) /uL Baso # (Auto) 0 (0-100) /uL Sodium 136 L (137-145) mmol/L Potassium 3.8 (3.4-5.1) mmol/L Chloride 100 (98-107) mmol/L Carbon Dioxide 27 (22-32) mmol/L BUN 19 (9-20) mg/dL Creatinine 0.68 (0.66-1.25) mg/dL Estimated GFR > 60 (>60) mL/min BUN/Creatinine Ratio 27.9 H (6-22) Glucose 141 H (70-99) mg/dL Calcium 9.9 (8.4-10.2) mg/dL Total Bilirubin 0.5 (0.2-1.3) mg/dL AST 23 (17-59) IU/L ALT 10 (<50) IU/L Alkaline Phosphatase 197 H (38-126) U/L Total Protein 7.5 (6.3-8.2) g/dL Albumin 4.0 (3.5-5.0) g/dL Globulin 3.5 (1.7-4.1) g/dL Albumin/Globulin Ratio 1.1 (1.0-2.8) MDM Narrative Medical decision making narrative: 75-year-old male with metastatic prostate cancer who likely has a pathologic left pelvic fracture or dislocation. Patient is awaiting an x-ray. Patient is signed out to Dr. Fulton. <Eric Fulton MD - Last Filed: 12/07/24 08:46> Lab Data Lab results narrative: CBC with diff and CMP are unremarkable Labs: Lab Results 12/07/24 Range/Units 06:30 WBC 10.7 (4.5-11.0) X10^3/uL RBC 2.85 L (4.5-5.9) X10^6/uL Hgb 8.3 L (13.5-17.5) g/dL Hct 25.1 L (41-53) % MCV 88.1 (80-100) fL MCH 28.9 (26-34) PG MCHC 32.9 (30-36) % RDW 22.0 H (11.6-14.8) % Plt Count 397 (150-400) X10^3/uL Neut % (Auto) 84.9 H (50-75) % Lymph % (Auto) 6.7 L (25-40) % [place] % (Auto) 7.3 (3-14) % Eos % (Auto) 0.7 L (2-4) % Baso % (Auto) 0.4 (0-2) % Neut # (Auto) 9100 H (4474-1359) /uL Lymph # (Auto) 700 L (1984-3939) /uL [place] # (Auto) 800 (0-900) /uL Eos # (Auto) 100 (0-450) /uL Baso # (Auto) 0 (0-100) /uL Sodium 136 L (137-145) mmol/L Potassium 3.8 (3.4-5.1) mmol/L Chloride 100 (98-107) mmol/L Carbon Dioxide 27 (22-32) mmol/L BUN 19 (9-20) mg/dL Creatinine 0.68 (0.66-1.25) mg/dL Estimated GFR > 60 (>60) mL/min BUN/Creatinine Ratio 27.9 H (6-22) Glucose 141 H (70-99) mg/dL Calcium 9.9 (8.4-10.2) mg/dL Total Bilirubin 0.5 (0.2-1.3) mg/dL AST 23 (17-59) IU/L ALT 10 (<50) IU/L Alkaline Phosphatase 197 H (38-126) U/L Total Protein 7.5 (6.3-8.2) g/dL Albumin 4.0 (3.5-5.0) g/dL Globulin 3.5 (1.7-4.1) g/dL Albumin/Globulin Ratio 1.1 (1.0-2.8) Imaging Data Chest x-ray: My Impression: Independently reviewed chest x-ray, no acute finding Radiologist's Impression: No acute finding report on radiology report which was reviewed by me Extremity x-ray #1: My Impression: Fracture of the proximal left femur, abnormal bone consistent with metastatic disease Radiologist's Impression: [address] [address] XRay Report Signed Patient: Lui Johnson MR#: [id number] : 1950 Acct:[id number] Age/Sex: 74 / M Date of Service: 12/07/24 Loc: ED Accession Number: [id number] Procedure: XR femur LT min 2V Ordering Provider: Eric Fulton MD PROCEDURE: XR FEMUR LT MIN 2V INDICATIONS: femur fracture TECHNIQUE: 2 views of the femur were acquired. COMPARISON: None. FINDINGS: Minimally displaced oblique fracture of the left femur proximal diaphysis extends towards the lesser trochanter. Linear fracture fragment or other calcification is noted in the medial aspect of the proximal femoral diaphysis. Degenerative changes left hip with joint space narrowing and osteophytes. No gross fracture or dislocation distal femur IMPRESSION: Left proximal femur fracture. Follow-up is needed Dictated by: David Davey M.D. on 12/07/2024 at 8:26 Approved by: David Davey M.D. on 12/07/2024 at 8:29 Extremity x-ray #2: My Impression: Independent review of AP pelvis and left hip, proximal femur fracture ECG Data Attestation: I personally reviewed and interpreted this ECG as follows: (Normal sinus rhythm, rate is [address] segment changes no previous infarction no chamber hypertrophy) MDM Narrative Medical decision making narrative: 75-year-old male with metastatic prostate cancer who likely has a pathologic left pelvic fracture or dislocation. Patient is awaiting an x-ray. Patient is signed out to Dr. Fulton. Patient is hemodynamically stable, has a fracture of the proximal left femur given mechanism and patient's history as well as appearance of his bone on the x-ray this is presumed to be a pathologic fracture. He is neurovascularly intact this is a closed injury. Case is discussed with Orthopedics who plan operative management later today. Patient will be admitted to the hospitalist service. Discharge Plan Departure Patient Disposition: Admitted As Inpatient Clinical Impression: Pathologic fracture of femur Qualifiers: Pathology associated with fracture: neoplastic disease Encounter type: initial encounter Laterality: left Qualified Code(s): M84.552A - Pathological fracture in neoplastic disease, left femur, initial encounter for fracture Admit Date/Time: 12/07/24 08:52 Admit Provider: Travon Ozuna
--- NOTE | 2024-12-07 06:49 | DI.RAD.S_ITS ---
PROCEDURE: XR HIP W PEL IF DONE LT 2V INDICATIONS: left pelvis pain/possible fracture TECHNIQUE: 2 views of the hip were acquired. COMPARISON: None. FINDINGS: Bones: Diffuse osseous metastatic disease. There is a subtrochanteric fracture of the left femur. Soft tissues: No suspicious soft tissue calcifications or masses. IMPRESSION: Subtrochanteric fracture of the left femur, probably pathologic, less likely due to chronic use of bisphosphonate therapy. Dictated by: Venkatesh Og M.D. on 12/07/2024 at 8:51 Approved by: Venkatesh Og M.D. on 12/07/2024 at 8:53
[2024-12-07 07:17] LABS: Add Manual Diff / Slide Review NO; Hematocrit 25.1 % (41-53); Hemoglobin 8.3 g/dL (13.5-17.5); Lymphocytes Absolute Auto 700 /uL (1100-4500); Mean Corpuscular HGB Conc 32.9 % (30-36); Mean Corpuscular Hemoglobin 28.9 PG (26-34); Mean Corpuscular Volume 88.1 fL (80-100); Platelet Count 397 X10^3/uL (150-400)
[2024-12-07 07:26] LABS: Alanine Aminotransferase 10 IU/L (<50); Albumin 4.0 g/dL (3.5-5.0); Albumin Globulin Ratio 1.1 (1.0-2.8); Alkaline Phosphatase 197 U/L (38-126); Blood Urea Nitrogen 19 mg/dL (9-20); Calcium 9.9 mg/dL (8.4-10.2); Carbon Dioxide 27 mmol/L (22-32); Chloride 100 mmol/L (98-107); Estimated Glomerular Filt Rate > 60 mL/min (>60); Globulin 3.5 g/dL (1.7-4.1); Glucose 141 mg/dL (70-99); HEMOLYSIS < 15 (0-50); Potassium 3.8 mmol/L (3.4-5.1); Sodium 136 mmol/L (137-145); Total Protein 7.5 g/dL (6.3-8.2)
--- NOTE | 2024-12-07 07:45 | DI.RAD.S_ITS ---
PROCEDURE: XR FEMUR LT MIN 2V INDICATIONS: femur fracture TECHNIQUE: 2 views of the femur were acquired. COMPARISON: None. FINDINGS: Minimally displaced oblique fracture of the left femur proximal diaphysis extends towards the lesser trochanter. Linear fracture fragment or other calcification is noted in the medial aspect of the proximal femoral diaphysis. Degenerative changes left hip with joint space narrowing and osteophytes. No gross fracture or dislocation distal femur IMPRESSION: Left proximal femur fracture. Follow-up is needed Dictated by: David Davey M.D. on 12/07/2024 at 8:26 Approved by: David Davey M.D. on 12/07/2024 at 8:29
--- NOTE | 2024-12-07 08:06 | DI.RAD.S_ITS ---
PROCEDURE: XR CHEST 1V INDICATIONS: Preoperative evaluation TECHNIQUE: One view of the chest was acquired. COMPARISON: [facility], CR, XR CHEST 1V, 12/28/2023, 19:57. FINDINGS: Limited supine view. Low lung volumes with mild bibasilar subsegmental atelectasis commonly related expiratory result. Cannot exclude superimposed peribronchial thickening and patchy opacities. Cardiopericardial silhouette and pulmonary vasculature within normal limits. No gross pneumothorax, pleural effusion or lobar consolidation. IMPRESSION: Limited supine view with low lung volumes, bibasilar subsegmental atelectasis as discussed above. Dictated by: David Davey M.D. on 12/07/2024 at 8:30 Approved by: David Davey M.D. on 12/07/2024 at 8:31
--- NOTE | 2024-12-07 08:20 | EKG_ITS ---
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
[2024-12-07] MEDS: ONDANSETRON 4 MG/2 ML INJ IV (08:27)
--- NOTE | 2024-12-07 09:45 | PM.HP.IH.1 ---
History of Present Illness History of Present Illness Date Patient Seen: 12/07/24 Time Patient Seen: 09:00 Date of Onset of Symptoms: 12/07/24 Chief complaint: Left hip pain Narrative: 74yo M With metastatic prostate cancer presents to the emergency department with left hip pain. He reports that he has been having increasing left hip pain for the last 1-1/2 weeks. This morning when he got up to use the restroom his left hip was significantly painful and then he felt a pop. Each time he took a step he felt an additional pop. At that point he was unable to ambulate and presented to the emergency department. He was then evaluated with the left hip radiographs which demonstrated his left hip subtrochanteric femur fracture. Orthopedics was then consulted. Patient reports that he has isolated left hip pain at this time. Denies loss of function. FORMERLY [facility] Social History household members: spouse and children Smoking Status: Never smoker alcohol intake: never eating out: 1-3 times/week Type(s) of exercise: walking Meds Home Medications and Allergies Home Medications ?Medication ?Instructions ?Recorded ?Confirmed ?Type ASPIRIN (#ASPIR 81) 81 mg PO DAILY ##0 04/07/11 01/03/24 History Fish Oil (Fish Oil 500 MG Softgel) 2,000 mg PO QDAY ##0 09/05/11 01/03/24 History [MENS MULTIPLE VIT.] 1 tab PO DAILY ##0 09/05/11 01/03/24 History metformin 500 mg tablet,extended 1,000 mg PO BID ##0 09/05/11 01/03/24 History release 24 hr (Glucophage XR) acetaminophen 500 mg tablet 1,000 mg PO Q6H PRN Pain (Scale 12/29/23 01/06/24 History (Tylenol Extra Strength) Score 4-6) bisacodyl 10 mg rectal suppository 10 mg [place] DAILY PRN Constipation 12/29/23 01/03/24 History calcium 200 mg (as 1 tab PO DAILY 12/29/23 01/03/24 History citrate)-vitamin D3 3.125 mcg (125 unit) tablet duloxetine 60 mg capsule,delayed 60 mg PO DAILY 12/29/23 01/03/24 History release insulin glargine 100 unit/mL (3 12 unit SUBCUT BEDTIME 12/29/23 01/03/24 History mL) subcutaneous pen (Lantus Solostar U-100 Insulin) lisinopril 20 mg tablet 20 mg PO DAILY PRN Hypertension 12/29/23 01/06/24 History magnesium oxide 400 mg PO DAILY 12/29/23 01/03/24 History mirtazapine 7.5 mg tablet 7.5 mg PO ONCE PM 12/29/23 01/03/24 History polyethylene glycol 3350 17 gram 17 g PO DAILY PRN Constipation 12/29/23 01/03/24 History oral powder packet (Miralax) pregabalin 82.5 mg tablet, 82.5 mg PO BEDTIME 12/29/23 01/03/24 History extended release 24 hr pantoprazole 40 mg tablet,delayed 40 mg PO DAILY #30 tabs 01/01/24 01/06/24 Rx release (Protonix) Allergies Allergy/AdvReac Type Severity Reaction Status Date / Time No Known Drug Allergies Allergy Verified 12/07/24 06:32 Exam Vital Signs (past 8 hours): - 12/07/24 06:27 12/07/24 06:28 12/07/24 06:28 Temperature Pulse Rate 94 H 93 H Respiratory Rate Blood Pressure 172/75 H Pulse Oximetry 98 98 Oxygen Delivery Method 12/07/24 06:30 12/07/24 06:30 12/07/24 06:32 Temperature 98.2 F Pulse Rate 97 H 94 H Respiratory Rate 15 18 Blood Pressure 160/76 H 172/75 H Pulse Oximetry 97 99 Oxygen Delivery Method Room Air 12/07/24 07:00 12/07/24 07:00 12/07/24 07:19 Temperature Pulse Rate 90 92 H Respiratory Rate 16 19 Blood Pressure 144/65 H Pulse Oximetry 96 93 Oxygen Delivery Method 12/07/24 07:19 12/07/24 07:30 12/07/24 07:30 Temperature Pulse Rate 92 H Respiratory Rate 22 Blood Pressure 150/68 H 142/59 H Pulse Oximetry 93 Oxygen Delivery Method Oxygen Delivery Method Room Air Narrative Exam Narrative: Left Hip: Inspection: No erythema, swelling, bruising, atrophy. ROM deferred due to known hip fracture Neurovascular exam: Fires ta/gc/ehl; SILT s/s/sp/dp/t, 2+ dp Imaging: Radiographs of the left hip on December 07, 2024: Minimally displaced subtrochanteric left femur fracture. Objective Labs 12/07/24 06:30 12/07/24 06:30 Labs: Laboratory Results - last 24 hr 12/07/24 06:30 WBC 10.7 RBC 2.85 L Hgb 8.3 L Hct 25.1 L MCV 88.1 MCH 28.9 MCHC 32.9 RDW 22.0 H Plt Count 397 Neut % (Auto) 84.9 H Lymph % (Auto) 6.7 L [place] % (Auto) 7.3 Eos % (Auto) 0.7 L Baso % (Auto) 0.4 Neut # (Auto) 9100 H Lymph # (Auto) 700 L [place] # (Auto) 800 Eos # (Auto) 100 Baso # (Auto) 0 Sodium 136 L Potassium 3.8 Chloride 100 Carbon Dioxide 27 BUN 19 Creatinine 0.68 Estimated GFR > 60 BUN/Creatinine Ratio 27.9 H Glucose 141 H Calcium 9.9 Total Bilirubin 0.5 AST 23 ALT 10 Alkaline Phosphatase 197 H Total Protein 7.5 Albumin 4.0 Globulin 3.5 Albumin/Globulin Ratio 1.1 Assessment & Plan Assessment & Plan narrative: 74yo M with metastatic prostate cancer presents with history, physical exam and imaging findings consistent with a left sub trochanteric femur fracture. Given his pain and inability to ambulate I recommended a cephalomedullary nail. The risks, benefits and alternatives of the procedure were discussed with the patient to include bleeding, infection, damage to surrounding structures, ongoing pain, hip stiffness, nonunion, need for additional surgeries and anesthesia risks such as heart attack, stroke and . The patient understood these risks and want to move forward with the procedure. Was consented for operative fixation of the left hip. Time-Based Coding :: 45 minutes spent with patient and on the chart (including review of chart, obtaining history, exam, reviewing outside data, placing orders, documenting exam and treatment plan, and counseling patient) on December 07, 2024. PROFEE Nursing Program Director Document charge(s): Yes
[2024-12-07] MEDS: ACETAMINOPHEN IV 1,000 MG/100 ML VIAL 400 MG IV (10:49)
[2024-12-07] MEDS: LACTATED RINGERS 1,000 ML 42 ML IV (11:00)
--- NOTE | 2024-12-07 11:15 | SUR.OPER ---
Supine on padded [place] table with bilateral legs secured in padded positioning boots and suspended in positioning spars, operative leg in traction per surgeon. Head on one pillow. Arm on non-operative side secured on padded armboard <90 degrees abduction. Arm on operative side padded and resting across chest on pillow then secured with tape over sheet. Padded perineal post in place per surgeon.
[2024-12-07] MEDS: HYDROmorphone 2 MG/ML SYRINGE IV ×6 (12:40→13:10)
[2024-12-07 12:55] LABS: Hematocrit 22.6 % (41-53); Hemoglobin 7.4 g/dL (13.5-17.5)
--- NOTE | 2024-12-07 13:11 | PM.OP.1 ---
Operative Date/Time/Diagnoses Date of procedure: 12/07/24 Time of procedure: 11:00 Pre-op diagnosis: Left Hip Fracture Post-op diagnosis: same Procedure & Clinicians Procedure: Left Hip Cephalomedullary Nail Same procedure(s) as scheduled: Yes Surgeon: David Ash Assisted?: Yes Fruit And Vegetable Classer: Romy Chery Anesthesia Type: General Operative Notes Findings: Subtroch Femur Fracture Closure Type: primary Specimen(s): none sent Applied: none Estimated Blood Loss (mL): 100 Blood products transfused: none Procedure in detail: Op Note Date of Procedure: December 07, 2024 Pre-Op Diagnosis: Left subtrochanteric Fracture Post-Op Diagnosis: Left subtrochanteric Hip Fracture Procedure: Open Reduction and Internal fixation of the left subtrochanteric Hip Fracture Surgeon: David Ash MD Fruit And Vegetable Classer in OR: RISHABH Jiang Physician Fruit And Vegetable Classer was used throughout the entirety of the case. They assisted with room set up, patient positioning, draping, retraction, reduction, fixation and closure. They were essential for the success of the case. Anesthesia Type: General EBL: 100cc Urine Output: N/A Specimens Removed: None Complications: None Implants/Grafts: Richardson and Nephew inner paulson 10 mm x 40 cm at 125?. Integrated interlocking lag screw of 95 mm and 90 mm; 5.0 mm x 45 mm screw in the distal femur Drains: No lines, drains, or airways are recorded for this episode. Narrative: The patient was taken to the OR and administered anesthetic and preoperative antibiotics. They were placed on the fracture table with the operative leg in traction boot. The nonoperative nonoperative leg was placed in a boot and lowered below the plane of the bed. Using traction and appropriate rotation, the hip was reduced to near anatomic position on fluoroscopic views. Standard prep and drape was done. Percutaneous approach to the hip was used. Incision was made in line with and 5cm proximal to the greater trochanter. The incision was carried down through skin and subcutaneous fat to the fascia. Hemostasis achieved. The guide wire was then inserted at the tip of the greater trochanter and down into the proximal femoral shaft ensuring not to enter through the fracture site. The opening reamer was then used to ream over the guidewire down to the level of the lesser trochanter, taking care to remove bone centrally and not distract the fracture. The guidewire was removed. The ball tipped guide wire was placed to the knee and the length was measured. The canal was reamed until chatter was heard and an appropriately sized nail was then placed. Through a separate incision the aiming device for the helical blade was inserted down to the lateral cortex of the femur. A guidewire was then drilled into the femoral head subchondral bone traveling centrally through the neck. It was measured and over reamed at the appropriate length. The head screw was then tapped into place. The tip to apex distance was less than 1 cm on AP and lateral views. There another separate small incision and distal locking screw was then drilled and inserted. AP and lateral fluoroscopic views confirmed satisfactory reduction and implant position. The wounds were irrigated. Fascia [place] closed with #0 Vicryl followed by skin with 2-0 Vicryl and kellie in all incisions. Sterile dressings placed. Patient transferred to recovery room bed. Patient transferred to recovery room in stable condition. Plan: Weight bearing as tolerated. Follow-up in 2 weeks for wound check and staple removal. DVT prophylaxis with 6 weeks of aspirin. Physical therapy. David Ash MD Complications: none Post-operative Condition: stable Disposition: PACU
--- NOTE | 2024-12-07 13:48 | SUR.PHASEI ---
Attempted to call report to the floor and they were unable to take report. Will attempt to call again.
--- NOTE | 2024-12-07 16:19 | P.HP_ITS ---
History of Present Illness History of Present Illness Date Patient Seen: 12/07/24 Chief complaint: Left hip pain Narrative: Chief complaint: Hip pain secondary to pathologic fracture in the setting of metastatic prostate cancer History of present illness: 72-year-old with metastatic prostate cancer at about 7 days of increasing left hip pain then felt a pop when he tried to use the restroom this morning was came to the emergency department left hip subtrochanteric hip fracture. Patient was taken to the operating room by Dr. Glaser where he performed an ORIF with a cephalomedullary nail. Patient was transferred up to the floor where I evaluated Patient was in no acute distress with some postoperative pain afterward Objective findings with significant hemoglobin was 8.3 preoperative and 7.4 postoperative hemogram otherwise unremarkable basic metabolic profile also in reference range Review of systems: No fever or chills rigors No chest pain palpitations shortness for breath No nausea vomiting diarrhea The paresthesia paresis No visual changes or loss of consciousness Physical exam: Very pleasant chronically ill pale elderly male no distress HEENT unremarkable No labored respiration Abdomen benign Extremities no edema Assessment and plan: Pathologic left femur fracture secondary to or setting metastatic prostate carcinoma status post cephalomedullary nail * Appreciate orthopedic expertise * DVT prophylaxis per orthopedic stewardship Metastatic prostate carcinoma * Management per specialist's DVT prophylaxis: * Per orthopedic stewardship Code status: * Do not resuscitate Disposition: * Inpatient expect 2 days or perhaps 3 of hospitalization disposition to be determined as patient's progress with the home with home health or skilled rehab Time based billing: * 35 minutes were involved in the management of this patient including [id number] evaluation of the patient physical examination review of records laboratory objective findings and imaging [facility]LY [facility] Social History household members: spouse and children Smoking Status: Never smoker alcohol intake: never eating out: 1-3 times/week Type(s) of exercise: walking Meds Home Medications and Allergies Home Medications ?Medication ?Instructions ?Recorded ?Confirmed ?Type ASPIRIN (#ASPIR 81) 81 mg PO DAILY ##0 04/07/11 12/07/24 History Fish Oil (Fish Oil 500 MG Softgel) 2,000 mg PO QDAY ## 0 09/05/11 01/03/24 History [MENS MULTIPLE VIT.] 1 tab PO DAILY ##0 09/05/11 12/07/24 History metformin 500 mg tablet,extended 1,000 mg PO BID ##0 0 09/05/11 12/07/24 History release 24 hr (Glucophage XR) acetaminophen 500 mg tablet 1,000 mg PO Q6H PRN Pain ( Scale 12/29/23 01/06/24 History (Tylenol Extra Strength) Score 4-6) bisacodyl 10 mg rectal suppository 10 mg [place] DAILY PRN Constipation 12/29/23 01/03/24 History calcium 200 mg (as 1 tab PO DAILY 12/29/2312/10 History citrate)-vitamin D3 3.125 mcg (125 unit) tablet duloxetine 60 mg capsule,delayed 60 mg PO DAILY 01/03/24 History release insulin glargine 100 unit/mL (3 12 unit SUBCUT BEDTIME 12/29/23 12/07/24 History mL) subcutaneous pen (Lantus Solostar U-100 Insulin) lisinopril 20 mg tablet 20 mg PO DAILY PRN Hypertens ion 12/29/23 12/07/24 History Held on 12/07/24. Instructions: n/a magnesium oxide 400 mg PO DAILY 12/29/23 History mirtazapine 7.5 mg tablet 7.5 mg PO ONCE PM 12/29/23 1 History polyethylene glycol 3350 17 gram 17 g PO DAILY PRN Con stipation 12/29/23 01/03/24 History oral powder packet (Miralax) pregabalin 82.5 mg tablet, 82.5 mg PO BEDTIME 12/29/23 12/07/24 History extended release 24 hr Allergies Allergy/AdvReac Type Severity Reaction Status Date / Time No Known Drug Allergies Allergy Verified 12/07/24 10:10 Exam Vital Signs (past 8 hours): - 12/07/24 08:30 12/07/24 09:00 12/07/24 09:00 Temperature Pulse Rate 96 H 97 H Respiratory Rate 19 14 Blood Pressure 137/63 Pulse Oximetry 93 97 Oxygen Delivery Method Oxygen Flow Rate 12/07/24 09:30 12/07/24 09:30 12/07/24 10:24 Temperature 98.3 F Pulse Rate 94 H 106 H Respiratory Rate 20 14 Blood Pressure 138/65 144/84 H Pulse Oximetry 98 95 Oxygen Delivery Method Room Air Oxygen Flow Rate 12/07/24 12:28 12/07/24 12:33 12/07/24 12:38 Temperature 98.9 F Pulse Rate 82 82 84 Respiratory Rate 14 14 16 Blood Pressure 121/67 124/59 L 141/65 H Pulse Oximetry 93 93 94 Oxygen Delivery Method Room Air Room Air Room Air Oxygen Flow Rate 12/07/24 12:43 12/07/24 12:48 12/07/24 12:53 Temperature Pulse Rate 93 H 88 97 H Respiratory Rate 16 18 16 Blood Pressure 141/65 H 132/60 134/62 Pulse Oximetry 93 94 96 Oxygen Delivery Method Room Air Room Air Room Air Oxygen Flow Rate 12/07/24 12:58 12/07/24 13:04 12/07/24 13:07 Temperature 98.7 F Pulse Rate 98 H 101 H 100 H Respiratory Rate 16 16 18 Blood Pressure 137/62 126/59 L 149/67 H Pulse Oximetry 96 96 93 Oxygen Delivery Method Room Air Room Air Room Air Oxygen Flow Rate 12/07/24 13:15 12/07/24 13:28 12/07/24 13:37 Temperature 98.7 F Pulse Rate 98 H 95 H 97 H Respiratory Rate 18 16 14 Blood Pressure 166/74 H 147/66 H 157/71 H Pulse Oximetry 92 94 93 Oxygen Delivery Method Room Air Room Air Room Air Oxygen Flow Rate 12/07/24 13:44 12/07/24 13:49 12/07/24 13:54 Temperature Pulse Rate 94 H 95 H 93 H Respiratory Rate 18 18 12 Blood Pressure 151/67 H 152/70 H 144/65 H Pulse Oximetry 95 93 94 Oxygen Delivery Method Room Air Room Air Oxygen Flow Rate 12/07/24 14:10 Temperature 98.1 F Pulse Rate 103 H Respiratory Rate 16 Blood Pressure 148/74 H Pulse Oximetry 97 Oxygen Delivery Method Oxygen Flow Rate 0 Oxygen Delivery Method Room Air Oxygen Flow Rate 0 Objective Labs 12/07/24 12:45 12/07/24 06:30 Labs: Laboratory Results - last 24 hr 12/07/24 12/07/24 12/07/24 06:30 09:35 10:09 WBC 10.7 RBC 2.85 L Hgb 8.3 L Hct 25.1 L MCV 88.1 MCH 28.9 MCHC 32.9 RDW 22.0 H Plt Count 397 Neut % (Auto) 84.9 H Lymph % (Auto) 6.7 L [place] % (Auto) 7.3 Eos % (Auto) 0.7 L Baso % (Auto) 0.4 Neut # (Auto) 9100 H Lymph # (Auto) 700 L [place] # (Auto) 800 Eos # (Auto) 100 Baso # (Auto) 0 Sodium 136 L Potassium 3.8 Chloride 100 Carbon Dioxide 27 BUN 19 Creatinine 0.68 Estimated GFR > 60 BUN/Creatinine Ratio 27.9 H Glucose 141 H POC Whole Bld Glucose 121 H Calcium 9.9 Total Bilirubin 0.5 AST 23 ALT 10 Alkaline Phosphatase 197 H Total Protein 7.5 Albumin 4.0 Globulin 3.5 Albumin/Globulin Ratio 1.1 Blood Type B Positive Antibody Screen Negative 12/07/24 12/07/24 12:45 13:37 WBC RBC Hgb 7.4 L Hct 22.6 L MCV MCH MCHC RDW Plt Count Neut % (Auto) Lymph % (Auto) [place] % (Auto) Eos % (Auto) Baso % (Auto) Neut # (Auto) Lymph # (Auto) [place] # (Auto) Eos # (Auto) Baso # (Auto) Sodium Potassium Chloride Carbon Dioxide BUN Creatinine Estimated GFR BUN/Creatinine Ratio Glucose POC Whole Bld Glucose 146 H Calcium Total Bilirubin AST ALT Alkaline Phosphatase Total Protein Albumin Globulin Albumin/Globulin Ratio Blood Type Antibody Screen Assessment & Plan Time-Based Coding :: [TOTAL MINUTES] spent with patient and on the chart (including review of chart, obtaining history, exam, reviewing outside data, placing orders, documenting exam and treatment plan, and counseling patient) on [DATE]. Quality VTE Deep Vein Thrombosis/Pulmonary Embolism Present on Admission: No
[2024-12-07] MEDS: LACTATED RINGERS 1,000 ML 100 ML IV (16:39)
[2024-12-07 19:08] LABS: Hematocrit 22.7 % (41-53); Hemoglobin 7.3 g/dL (13.5-17.5)
[2024-12-07] MEDS: DOCUSATE 100 MG CAPSULE PO (23:06)
[2024-12-07] MEDS: ACETAMINOPHEN 325 MG TABLET 650 MG PO (23:06)
[2024-12-08] MEDS: LACTATED RINGERS 1,000 ML 100 ML IV ×2 (01:31→12:13)
[2024-12-08 05:42] LABS: Add Manual Diff / Slide Review NO; Lymphocytes Absolute Auto 600 /uL (1100-4500); Mean Corpuscular HGB Conc 33.1 % (30-36); Mean Corpuscular Hemoglobin 28.9 PG (26-34); Mean Corpuscular Volume 87.6 fL (80-100); Platelet Count 324 X10^3/uL (150-400)
[2024-12-08 05:50] LABS: Hematocrit 20.7 % (41-53); Hemoglobin 6.9 g/dL (13.5-17.5)
[2024-12-08 05:56] LABS: Blood Urea Nitrogen 11 mg/dL (9-20); Calcium 9.1 mg/dL (8.4-10.2); Carbon Dioxide 23 mmol/L (22-32); Chloride 97 mmol/L (98-107); Estimated Glomerular Filt Rate > 60 mL/min (>60); Glucose 138 mg/dL (70-99); HEMOLYSIS < 15 (0-50); Potassium 4.1 mmol/L (3.4-5.1); Sodium 131 mmol/L (137-145)
[2024-12-08] MEDS: DOCUSATE 100 MG CAPSULE PO ×2 (08:15→21:45)
[2024-12-08] MEDS: ASPIRIN EC 81 MG TABLET PO ×2 (08:15→21:45)
[2024-12-08] MEDS: ACETAMINOPHEN 325 MG TABLET 650 MG PO ×3 (08:15→21:45)
--- NOTE | 2024-12-08 09:03 | P.PN_ITS ---
Subjective Subjective Interval history: 74-year-old male is postoperative day 1 from a left cephalomedullary nail the left hip by Dr. Ash at [facility] on 12/07/2024. He reports poor pain control. He takes Oxycodone 5 mg every 6 hours and in a scheduled manner at home prescribed by palliative care at [facility] for prostate cancer. He has received Oxycodone 5 mg in the hospital and Oxycodone 10 mg overnight. He continues to have poor pain control. Today he denies chest pain with exertion, dyspnea, nausea and emesis. He is making urine spontaneously. He denies fever and chills. He denies dizziness. Also requests his home mirtazapine tonight as he had difficulty sleeping last night. He is awaiting evaluation by physical therapy Exam Vital Signs (past 8 hours): Oxygen Delivery Method Room Air Oxygen Flow Rate 0 Narrative Exam Narrative: Well-developed, well-nourished, 74-year-old male, no acute distress. Three Tegaderm dressings intact to left hip without drainage or hematoma. Femoral and sciatic nerve function intact. Sensation grossly intact the left lower extremity. Palpable dorsalis pedis pulse. Mild tenderness about the 12th rib, left side without bruising Objective Labs 12/08/24 04:50 12/08/24 04:50 Labs: Laboratory Results - last 24 hr 12/07/24 12/07/24 12/07/24 09:35 10:09 12:45 WBC RBC Hgb 7.4 L Hct 22.6 L MCV MCH MCHC RDW Plt Count Neut % (Auto) Lymph % (Auto) [place] % (Auto) Eos % (Auto) Baso % (Auto) Neut # (Auto) Lymph # (Auto) [place] # (Auto) Eos # (Auto) Baso # (Auto) Sodium Potassium Chloride Carbon Dioxide BUN Creatinine Estimated GFR BUN/Creatinine Ratio Glucose POC Whole Bld Glucose 121 H Calcium Blood Type B Positive Antibody Screen Negative 12/07/24 12/07/24 12/07/24 13:37 16:54 19:00 WBC RBC Hgb 7.3 L Hct 22.7 L MCV MCH MCHC RDW Plt Count Neut % (Auto) Lymph % (Auto) [place] % (Auto) Eos % (Auto) Baso % (Auto) Neut # (Auto) Lymph # (Auto) [place] # (Auto) Eos # (Auto) Baso # (Auto) Sodium Potassium Chloride Carbon Dioxide BUN Creatinine Estimated GFR BUN/Creatinine Ratio Glucose POC Whole Bld Glucose 146 H 123 H Calcium Blood Type Antibody Screen 12/07/24 12/08/24 12/08/24 21:37 04:50 08:13 WBC 12.3 H RBC 2.37 L Hgb 6.9 L* Hct 20.7 L* MCV 87.6 MCH 28.9 MCHC 33.1 RDW 21.5 H Plt Count 324 Neut % (Auto) 88.5 H Lymph % (Auto) 4.8 L [place] % (Auto) 6.1 Eos % (Auto) 0.3 L Baso % (Auto) 0.3 Neut # (Auto) 37326 H Lymph # (Auto) 600 L [place] # (Auto) 800 Eos # (Auto) 0 Baso # (Auto) 0 Sodium 131 L Potassium 4.1 Chloride 97 L Carbon Dioxide 23 BUN 11 Creatinine 0.58 L Estimated GFR > 60 BUN/Creatinine Ratio 19.0 Glucose 138 H POC Whole Bld Glucose 140 H 132 H Calcium 9.1 Blood Type Antibody Screen [facility] Social History household members: spouse and children Smoking Status: Never smoker alcohol intake: never eating out: 1-3 times/week Type(s) of exercise: walking Assessment & Plan Assessment and plan (1) Pathologic fracture of femur: Qualifiers: Encounter type: initial encounter Laterality: left Pathology associated with fracture: neoplastic disease Qualified Code(s): M84.552A - Pathological fracture in neoplastic disease, left femur, initial encounter for fracture Status: Acute Plan 74 year old male with a past medical history of insulin-dependent diabetes, prostate cancer and chronic anemia is post operative day 1 from a left hip cephallomeduallry nail by Dr Ash at [facility] on 12/07/2024. His pain is poorly controlled with oral regimen and his oxycodone was increased to 10 mg every 6 hours as he has on a baseline 5 mg every 6 hours for palliative care. His hemoglobin is 6.9 today, transfusion of 1 unit packed red blood cells was ordered by internal medicine. He is awaiting physical therapy evaluation today. Discharge likely to SNF. Plan:? * Weightbearing as tolerated to left lower extremity with front wheeled walker? * No hip precautions? * DVT prophylaxis with 81 mg aspirin twice daily for 6 weeks * Continue multimodal analgesia with Tylenol, 10 mg oxycodone?every 6 hours. One time dose of IV Toradol today. * Bowel regimen as needed? * Physical therapy evaluation and treatment today? * Follow up with orthopedics 2 weeks post operatively? * Ice to surgical site * Dressings to remain in place for 4 days post operatively * Appreciate expertise of internal medicine physician in management of chronic medical comorbidities Time-Based Coding :: [TOTAL MINUTES] spent with patient and on the chart (including review of chart, obtaining history, exam, reviewing outside data, placing orders, documenting exam and treatment plan, and counseling patient) on [DATE]. Quality VTE Deep Vein Thrombosis/Pulmonary Embolism Present on Admission: No I[facility] PROFEE Chip Bin Operator Document charge(s): Yes Charge Codes Subsequent inpatient/observation care: [id number]
[2024-12-08 09:49] VITALS: BP 146/78; PULSE 108; RESP 18; TEMP 36.3; O2SAT 95
--- NOTE | 2024-12-08 10:28 | OT.IPNOTE ---
Pt low HH and to get blood later. Hold OT eval.
[2024-12-08] MEDS: ONDANSETRON 4 MG ODT PO (11:08)
--- NOTE | 2024-12-08 12:01 | DIET.CONS ---
Dietary Consultation Note Admission Date: 12/07/2024 08:52 Assessment: 74 y M admitted for hip fracture. Dietitian screened for MNA score. Hx of metastatic prostate cancer. Met with pt and spouse at bedside, reports PO intakes and weight have been steady for last 3-6 months until the past 1-2 weeks. In last 1-2 weeks, reports pt eating <50% of his usual amount at meals d/t pain. Currently pt in pain and having some nausea. Not drinking protein supplement and declining anything for lunch. Protein supplement too sweet. Discussed alternatives. NFPE not completed, pt in pain with c/o nausea. Ht: 172.72 cm Wt: 67.585 kg BMI: 22.6 UBW: hx of low weight Dec 2023 of 121#, but since then weight has increased to UBW of 150# Last BM: () MNA: 9 Micheal Score: 17 Diet: 12/07/24 Lunch Carbohydrate Consistent Diet Diet Modifications: Carbohydrate level: Medium (3 CHO) Reflex DM orders: No Food Texture: Level 7 - Regular Liquid Consistency: Level 0 - Thin Nutrition Percent Meal Consumed 100% 12/07/24 19:30 Labs: RBC 2.37 X10^6/uL (4.5-5.9) L 12/08/24 04:50 Hgb 6.9 g/dL (13.5-17.5) L* 12/08/24 04:50 Hct 20.7 % (41-53) L* 12/08/24 04:50 Creatinine 0.58 mg/dL (0.66-1.25) L 12/08/24 04:50 Nutrition Diagnosis: Inadequate oral intake r/t decreased appetite d/t pain/nausea aeb <50% of estimated energy needs for 1-2 weeks per diet recall Interventions: Coordinated with unit host for protein supplementation trial that is less sweet, pt declines Ensures. EER: 1750 kcals (25 kcals/kg vs MSJx1.25) 70 g protein (1 g/kg per age) Monitoring/Evaluations:PO intakes Electronically Signed by: Anastasia Lozano 12/08/24 12:01 Clinical Dietitian [address] [id number]
--- NOTE | 2024-12-08 12:43 | PT-IP ANOTE ---
PT eval order received and reviewed EMR. pt with Hgb: 6.9 and Hct 20.7. Talked with nurse and stated that pt will received blood transfusion this afternoon. Will hold PT eval order until after blood transfusion and H&H result post transfusion. nurse aware.
[2024-12-08] MEDS: KETOROLAC 30 MG/ML VIAL 15 MG IV (12:49)
--- NOTE | 2024-12-08 12:53 | CM.DANOTE ---
Initial DCP Assessment Visit Note Reviewed EMR and team rounds for pt's medical status and updates. Went to go meet with pt, however he was found to be sound asleep at the time of this visit. Pt lives independently with his spouse in their own home in [place]. Monitoring for final d/c recommendations of home vs. SNF rehab. Payor: Medicare PCP: Dr. Ortiz Pt is a 74 year-old M who presented to the ED via EMS yesterday for sudden-onset L-hip pain. He does have a hx of metastatic prostate cancer, and is in active tx with [facility]. He states that he heard a loud pop, followed by severe pain and inability to stand or mobilize. The hip x-ray in the ED was positive for a L-hip pathological fracture. Ortho was consulted, and rosanna plan was made to admit for surgery, pain management, and work with therapies. DCP will monitor for likelihood of him needing a SNF rehab at d/c, however it depends on how well he does when he does work with therapies. Today he is post-op day 1, and having complications of low H&H, will need a blood transfusion at some point today. 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 Yes Advance Directives Yes on File History Provided By Patient,Medical Record Has Patient been No admitted in last 30 days? Prior Living House Arrangements Household Members spouse,children Type of Drives own vehicle transporation used prior to admit Independent with ADL Yes 's Is patient alert and Yes oriented? Comment N/A Caregiver for No Another Patient/Family Assisted Facility Preference Barriers to No Discharge Discharge Plan Assisted Facility Transportation Likely facility if he goes to SNF. Arrangement Referrals Initiated Other If patient plan is No SNF: Has PASSR been completed? Whiteboard Updated Yes in Patient Room with name and ext. # of Electrical & Instrumentation Supervisor Review Status In Process Please Provide Date 12/08/24 Initial DC Assessment Was Performed
[2024-12-08 17:13] VITALS: BP 148/76; PULSE 105; RESP 18; TEMP 36.3
[2024-12-08] MEDS: INSULIN LISPRO 100 UNIT/ML 3ML VIAL SUBCUT ×2 (17:19→21:50)
[2024-12-08 17:29] VITALS: BP 143/83; PULSE 103; RESP 18; TEMP 36.4
[2024-12-08 17:32] VITALS: BP 144/75; PULSE 106; RESP 18; TEMP 36.5
[2024-12-08 19:25] VITALS: BP 144/75; PULSE 109; RESP 18; TEMP 36.5; O2SAT 91
[2024-12-08 21:00] LABS: Hemoglobin A1C% w Est Avg Glu 8.2 % (4.0-6.0)
[2024-12-08] MEDS: INSULIN GLARGINE 100 UNIT/ML 3ML PEN 10 UNIT SUBCUT (21:51)
[2024-12-08] MEDS: MIRTAZAPINE 15 MG TABLET 7.5 MG PO (23:02)
[2024-12-09] MEDS: LACTATED RINGERS 1,000 ML 100 ML IV (01:50)
[2024-12-09] MEDS: ACETAMINOPHEN 325 MG TABLET 650 MG PO ×3 (02:51→20:19)
[2024-12-09 04:33] LABS: Add Manual Diff / Slide Review NO; Hematocrit 23.4 % (41-53); Hemoglobin 7.8 g/dL (13.5-17.5); Lymphocytes Absolute Auto 500 /uL (1100-4500); Mean Corpuscular HGB Conc 33.5 % (30-36); Mean Corpuscular Hemoglobin 29.2 PG (26-34); Mean Corpuscular Volume 87.3 fL (80-100); Platelet Count 296 X10^3/uL (150-400)
--- NOTE | 2024-12-09 06:47 | P.PN_ITS ---
Exam Vital Signs (past 8 hours): Oxygen Delivery Method Nasal Cannula Oxygen Flow Rate 0 Objective Labs 12/09/24 04:22 12/08/24 04:50 Labs: Laboratory Results - last 24 hr 12/07/24 12/08/24 12/08/24 09:35 04:50 08:13 WBC RBC Hgb Hct MCV MCH MCHC RDW Plt Count Neut % (Auto) Lymph % (Auto) Leslie % (Auto) Eos % (Auto) Baso % (Auto) Neut # (Auto) Lymph # (Auto) Leslie # (Auto) Eos # (Auto) Baso # (Auto) POC Whole Bld Glucose 132 H Hemoglobin A1c 8.2 H Blood Type B Positive Antibody Screen Negative Crossmatch See Detail 12/08/24 12/08/24 12/08/24 12:00 16:52 20:49 WBC RBC Hgb Hct MCV MCH MCHC RDW Plt Count Neut % (Auto) Lymph % (Auto) Leslie % (Auto) Eos % (Auto) Baso % (Auto) Neut # (Auto) Lymph # (Auto) Leslie # (Auto) Eos # (Auto) Baso # (Auto) POC Whole Bld Glucose 169 H 239 H 201 H Hemoglobin A1c Blood Type Antibody Screen Crossmatch 12/09/24 04:22 WBC 10.6 RBC 2.68 L Hgb 7.8 L Hct 23.4 L MCV 87.3 MCH 29.2 MCHC 33.5 RDW 20.0 H Plt Count 296 Neut % (Auto) 86.5 H Lymph % (Auto) 5.2 L Leslie % (Auto) 7.0 Eos % (Auto) 0.9 L Baso % (Auto) 0.4 Neut # (Auto) 9200 H Lymph # (Auto) 500 L Leslie # (Auto) 700 Eos # (Auto) 100 Baso # (Auto) 0 POC Whole Bld Glucose Hemoglobin A1c Blood Type Antibody Screen Crossmatch [facility] Social History household members: spouse and children Smoking Status: Never smoker alcohol intake: never eating out: 1-3 times/week Type(s) of exercise: walking Assessment & Plan Post-op Postoperative Procedures: Procedures Operation Date: 12/07/24 09:45 Actual Procedure Side Surgeon p Intramedullary Nailing Femur Left David Ash MD Postoperative plan narrative: ID: 74 yo M s/p LEFT Hip Cephalomedullary Nail on 12/07/24 S: Pain controlled with pain medications. Denies F/C/NS/CP/SOB. Tolerating PO. O: LEFT Hip: Dressings C/D/I Seen flexing hip to 90 degrees Fires Quad/Hamstring/TA/Gastroc/EHL SILT in S/S/DP/SP/T nerve distributions Cap refill < 2 sec A/P: 74 year old male with a past medical history of insulin-dependent diabetes, prostate cancer and chronic anemia s/p left hip cephallomeduallry nail on 12/07/2024. His pain is better controlled today. His hemoglobin is 7.8 today after transfusion of 1 unit packed red blood cells which is improved from 6.9 yesterday. He is awaiting physical therapy evaluation today. Discharge likely to SNF. Plan: oWeightbearing as tolerated to left lower extremity with front wheeled walker Ortiz hip precautions oDVT prophylaxis with 81 mg aspirin twice daily for 6 weeks oContinue multimodal analgesia with Tylenol, 10 mg oxycodone every 6 hours. oBowel regimen as needed oPhysical therapy evaluation and treatment today oFollow up with orthopedics 2 weeks post operatively oIce to surgical site oDressings to remain in place for 4 days post operatively Appreciate expertise of internal medicine physician in management of chronic medical comorbidities David Ash MD Orthopedics [phone] cell Time Spent With Patient Time with patient: 15-24 minutes Quality VTE Deep Vein Thrombosis/Pulmonary Embolism Present on Admission: No
[2024-12-09 09:00] VITALS: BP 144/75; PULSE 103; RESP 15; TEMP 36.6; O2SAT 93
--- NOTE | 2024-12-09 09:05 | PT.IIE ---
Current Diagnoses Malignant neoplasm of prostate (12/07/24) Pathological fracture in neoplastic disease, left femur, initial encounter for fracture (12/07/24) Surgery Performed Operation Date: 12/07/24 09:45 Actual Procedures p Intramedullary Nailing Femur(Left) - David Ash MD Physical Therapy Inpatient Evaluation/Re-Eval M1 PT/OT-IP Prior Functional Status Start: 12/09/24 13:22 Freq: NEEDED Status: Active Protocol: Document 12/09/24 09:05 AB (Rec: 12/09/24 13:37 AB [id number]) Medical Review Prior Functional Status Medical History Yes Reviewed Communication able to make needs known Mobility and Gait pt stated that he was independent with all mobilities and ambulation without AD; stated that he has been using a 4WW for last few days when L hip pain started Activities of Daily Able to do all ADL and IADL needs prior. Living and IADL's Social History Household Members spouse,children Living Arrangements House Number of Floors ( Two Floors Floors) Number of Stairs To 6 steps with left rail ascending to enter the house Enter/Railing? 16 steps with right rail ascending to get to the bedroom level but pt stated that he plans to stay on the main level of the house and spouse is trying to get a hospital bed for pt Home Environment Standard Height Toilet,Tub/Shower Home Equipment Front Wheel Walker,Four Wheel Walker,Bedside Commode, Raised Toilet Seat w/Armrests,Tub Transfer Bench,Grab Bars Near Toilet,Grab Bars In Shower Additional Social pt lives with spouse and son but both works and can History Comment only assist pt on their days off M2 PT-IP Current Condition Start: 12/09/24 13:22 Freq: NEEDED Status: Active Protocol: Document 12/09/24 09:05 AB (Rec: 12/09/24 13:37 AB [id number]) Physical Therapy Current Condition Current Condition Evaluation Date 12/09/24 Treatment Diagnosis L hip nailing; difficulty in walking Onset Date 12/07/24 M3 PT-IP Subjective Start: 12/09/24 13:22 Freq: NEEDED Status: Active Protocol: Document 12/09/24 09:05 AB (Rec: 12/09/24 13:37 AB [id number]) Subjective Physical Therapy Visit Type Type Initial Evaluation Visit Start Time 09:05 Visit Stop Time 09:45 Number of FLIGHT OPERATIONS INSPECTOR Visits 0 Physical Therapy Visit Comments Patient Comments agreeable to do PT Therapy Pain Assessment Pain When Pain Assessed At Rest Pain Present Pain Present Pain Reported Location Left Hip Intensity 3 Scale Used increases with mobility Pain Behaviors Guarding,Holding Area Pain Management Distraction,Modification of Treatment,Re-positioning, Techniques Timing of Activity with Medications M4 PT-IP Mobility and Gait Start: 12/09/24 13:22 Freq: NEEDED Status: Active Protocol: Document 12/09/24 09:05 AB (Rec: 12/09/24 13:37 [id number]) PT-Bed Mobility Assessment Supine to Sit Supine to Sit Maximum Assistance,2 Person Assistance,Head of Bed Elevated,Bedrails PT-Transfer Assessment Sit to and From Stand Sit to and from Moderate Assistance,2 Person Assistance,Use of Upper Stand Extremities Equipment Transfer Assistive Gait Belt,Front Wheeled Walker Device Orthotic/Prosthetic No Devices or Brace: Transfers Transfer Destination Chair Transfer Technique Stand Step Pivot Transfer Ability Level of Assist Moderate Assistance,2 Person Assistance,Use of Upper Extremities Comments Mobility Comments pt in bed and needed encouragement to move. obtained PLOF and home set up. pt completed supine to sit max A x 2 and max cues. increase L hip guarding with anticipation of pain. pt able to sit on EOB min A and cues with increase retrolean. sit to stand from EOB mod A x 2 and max cues and was able to step transfer to chair using FWW mod A x 2 and max cues. pt refused to ambulate but agreed to stay up on the chair. positioned pt on the chair. call light and table placed within reach. PT-Balance Assessment Sitting Balance and Reactions Static Sitting Fair Balance Ability Dynamic Sitting Fair Balance Ability Standing Balance and Reactions Static Standing Poor Balance Ability Dynamic Standing Poor Balance Ability Device Used FWW M5 PT-IP Objective Assessments Start: 12/09/24 13:22 Freq: NEEDED Status: Active Protocol: Document 12/09/24 09:05 AB (Rec: 12/09/24 13:37 [id number]) Orientation Orientation/Cognition Level of Alertness Alert Orientation Name,Place,Situation Language Function No Deficits Noted Ability Safety Awareness Decreased Safety Awareness Memory Description Short Term Impaired Gross Range of Motion Lower Extremity ROM Assessment Left Impaired Impairments pain limiting LLE movement with increase guarding Strength Lower Extremity Strength Assessment Left Impaired Hip 3-/5 Knee 3+/5 Muscle Tone Muscle Tone WNL Yes M6 PT-IP Treatment Start: 12/09/24 13:22 Freq: NEEDED Status: Active Protocol: Document 12/09/24 09:05 AB (Rec: 12/09/24 13:37 [id number]) Physical Therapy Treatment Exercises Exercises Heel Slides Education Education Provided Precautions,Weight Bearing Status,Safety M7 PT-IP Assessment and Plan Start: 12/09/24 13:22 Freq: NEEDED Status: Active Protocol: Document 12/09/24 09:05 AB (Rec: 12/09/24 13:37 [id number]) PT Summary Assessment and Plan Potential Rehabilitation Fair Potential Status of Condition Evolving at Evaluation Summary Impairments Pain,ROM,Strength,Balance,Coordination,Sensation,Tone, Cognition,Bed Mobility,Transfers,Gait,Activity Tolerance Assessment Summary pt is a 74 y/o M who had a pathologic hip fracture and underwent L hip nailing. pt is WBAT on LLE. pt with dx of prostate CA and undergoing chemotherapy. pt requiring max A x 2 for bed mobility and mod A x 2 for step transfer using FWW. pt refused to ambulate today. pt will benefit from SNF rehab to improve overall strength and mobility independence. Goals Bed Mobility Goal Minimal Assistance Transfer Goal Minimal Assistance,Front Wheeled Walker Gait Goal Minimal Assistance,Front Wheel Walker Gait Distance 50 Other Goals improve bed mobility, transfers and ambulation using FWW CGA 100 ft. Days to Meet Goals 10 Frequency of Treatment Frequency Of Once a Day Treatment Treatment Plan Physical Therapy Bed Mobility Training,Transfer Training,Gait Training, Treatment Plan Therapeutic Exercise,Balance Retraining,Post Op Education,Discharge Planning,Hot or Cold Pack, Neuromuscular Re-ed,Coordination Retraining,Manual Therapy Weight Bearing Status Weight Bearing Weight Bear as Tolerated Status Allowed Weight LLE WBAT Bearing Amount ( enter % or #) (%) Recommendations To Nursing Amount of Assist 2 Person Assist Needed Discharge Recommendations PT Discharge SNF Rehab Recommendations Transportation Needs Wheelchair/Cabulance at Discharge - PT assist 2
--- NOTE | 2024-12-09 09:45 | OT.IP.EVAL ---
Current Diagnoses Malignant neoplasm of prostate (12/07/24) Pathological fracture in neoplastic disease, left femur, initial encounter for fracture (12/07/24) Surgery Performed Operation Date: 12/07/24 09:45 Actual Procedures p Intramedullary Nailing Femur(Left) - David Ash MD Occupational Therapy Inpatient Evaluation/Re-Eval M1 PT/OT-IP Prior Functional Status Start: 12/09/24 10:48 Freq: NEEDED Status: Active Protocol: Document 12/09/24 10:48 [facility] (Rec: 12/09/24 11:02 [facility] Desktop) Medical Review Prior Functional Status Communication I Mobility and Gait Use of 4ww lately due to recent hip pain. Activities of Daily Able to do all ADL and IADL needs prior. Living and IADL's Prior Functional Pt lives with his and son who both work. Pt son is Level (Other details off work on Sat and Mon. ) Social History Household Members spouse,children Living Arrangements House Number of Floors ( Two Floors Floors) Number of Stairs To 6 steps with left rail to enter and 16 steps with right Enter/Railing? rail to get to the bedroom level. Pt states to get a hospital bed for the main floor. Home Environment Standard Height Toilet,Tub/Shower Home Equipment Bedside Commode,Raised Toilet Seat w/Armrests,Tub Transfer Bench,Grab Bars Near Toilet,Grab Bars In Shower M2 OT-IP Current Condition Start: 12/09/24 10:48 Freq: Status: Active Protocol: Document 12/09/24 10:48 [facility] (Rec: 12/09/24 11:02 [facility] Desktop) Occupational Therapy Current Condition Current Condition Evaluation Date 12/09/24 Treatment Diagnosis S/P L hip cephallmeduallry nail 12/03/24 Weight Bearing Status Weight Bearing Weight Bear as Tolerated Status Allowed Weight WBAT to LLE with FWW Bearing Amount ( enter % or #) (%) M3 OT- IP Subjective and Pain Start: 12/09/24 10:48 Freq: Status: Active Protocol: Document 12/09/24 10:48 [facility] (Rec: 12/09/24 11:02 [facility] Desktop) OT- Subjective Occupational Therapy Visit Type Type Initial Evaluation Visit Start Time 09:10 Visit Stop Time 09:45 Occupational Therapy Visit Comments Patient Comments Pt needing initial encouragement and agreed to get up. Patient/Caregiver Pt us adamant to go home. Goals OT Pain Assessment Pain When Pain Assessed During Mobility Pain Present Pain Present Pain Reported Location Left Leg Intensity 9 Scale Used Numeric (0 - 10) M4 OT- IP ADL's Start: 12/09/24 10:48 Freq: Status: Active Protocol: Document 12/09/24 10:48 [facility] (Rec: 12/09/24 11:02 [facility] Desktop) OT UKL-Gbey-Exohifm General Evaluation Self-Feeding Ability Independent OT ADL-Grooming Comments OT Grooming Comments Not performed. OT ADL-Oral Care Comments Oral Care Comments Not performed. OT ADL-Dressing General Eval Lower Body Dressing Maximum Assistance Ability Areas Needing Underpants/Brief,Socks Assistance OT ADL-Toileting Devices Toileting Assistive Urinal Devices Comments OT Toileting Pt using the urinal in bed. Comments OT ADL-Bathing Comments OT Bathing Comments Sponge bath more appropriate at this time. M5 OT- IP IADL's Start: 12/09/24 10:48 Freq: Status: Active Protocol: Document 12/09/24 10:48 [facility] (Rec: 12/09/24 11:02 [facility] Desktop) OT-Instrumental Activities of Daily Living Home Safety Awareness Home Safety Comments Pt is insistent that his family will be able to assist him even though he is requiring 2 person assist for bed mobility and transfer needs at this time. Meal Preparation Meal Preparation Caregiver Provides Assist Cath Lab Radiology Technician Cath Lab Radiology Technician Caregiver Provides Assist M6 OT- IP Functional Cognition Start: 12/09/24 10:48 Freq: Status: Active Protocol: Document 12/09/24 10:48 [facility] (Rec: 12/09/24 11:02 [facility] Desktop) Cognitive Factors Limiting Selfcare Function Cognitive Ability Level of Alertness Alert Patient Orientation Name,Place,Situation Attention Span Capable of Focused Attention,Capable of Sustained Ability Attention Ability to Follow Able to Follow One Step Commands Commands Safety Awareness Underestimates Need for Assistance Cognitive Comments Cognitive Assessment Pt needing increased time to follow commands for ADL Comments and mobility needs. Pt gets easily distracted at times and extra time to process and focus on task at hand. OT- Vision and Hearing OT- Hearing Assessment OT- Hearing Hearing Impaired Assessment OT- Vision Assessment Visual Acuity Glasses All The Time Visual Attentiveness WFL Occular Pursuits WFL M7 OT- IP Mobility and Balance Start: 12/09/24 10:48 Freq: Status: Active Protocol: Document 12/09/24 10:48 [facility] (Rec: 12/09/24 11:02 [facility] Desktop) OT- Bed Mobility Assessment Supine to Sit Supine to Sit Assist Maximum Assistance,2 Person Assistance Scooting Scooting to Edge of Moderate Assistance,2 Person Assistance Bed OT-Transfer Assessment Sit to and From Stand Sit to and from Moderate Assistance,2 Person Assistance Stand Transfers Transfer Ability Moderate Assistance,2 Person Assistance Technique Transfer Destination Bed,Chair Transfer Technique Stand Step Pivot Devices Transfer Assistive Gait Belt,Front Wheeled Walker Devices Comments Mobility Comments MAX AX 2 to assist to move his LLE and get his trunk upright. MOD Ax2 to stand and transfer to the recliner with FWW. Pt now wanting to do anymore at this time. OT- Balance Assessment Sitting Balance and Reactions Static Sitting Good Balance Ability Dynamic Sitting Fair Balance Ability Standing Balance and Reactions Static Standing Poor Balance Ability Dynamic Standing Poor Balance Ability M8 OT- IP Objective Assessments Start: 12/09/24 10:48 Freq: Status: Active Protocol: Document 12/09/24 10:48 [facility] (Rec: 12/09/24 11:02 [facility] Desktop) OT Gross Range of Motion Upper Extremity Range of Motion ROM Impairments grossly WFL OT Strength Comments Strength Comments WFL for needs M9 OT- IP Assessment and Plan Start: 12/09/24 10:48 Freq: Status: Active Protocol: Document 12/09/24 10:48 [facility] (Rec: 12/09/24 11:02 [facility] Desktop) OT Summary Assessment and Plan Potential Rehabilitation Good Potential Analytic Complexity Moderate at Evaluation Summary OT Impairments Pain,Strength,Balance,Functional Mobility,Grooming, Dressing,Toileting,Bathing,Toilet Transfers,Shower Transfers,Activity Tolerance Progress Towards Slow Progress due to Pain,Slow Progress due to Medical Goals Issues,Slow Progress due to Activity Tolerance Assessment Summary Pt MOD complexity and main barriers are steps, pain, and needing two person assist for ADL and mobility needs now. Pt will benefit from skilled rehab. Goals Self-Feeding Goal Independent Grooming Goal Independent Dressing Goal Minimal Assistance Toileting Goal Independent,Standby Assistance Bathing Goal Minimal Assistance Toilet Transfer Goal Independent Shower Transfer Goal Contact Guard Assistance Days to Meet Goals 20 Frequency of Treatment Other frequency 5x/week Treatment Plan OT Treatment Plan ADL Training,Functional Mobility,Patient/Family Education,Discharge Planning Discharge Recommendations OT Discharge SNF Rehab Recommendations Transportation Needs Wheelchair/Cabulance at Discharge
[2024-12-09] MEDS: DOCUSATE 100 MG CAPSULE PO ×3 (09:53→20:20)
[2024-12-09] MEDS: ASPIRIN EC 81 MG TABLET PO ×2 (09:53→20:20)
[2024-12-09] MEDS: INSULIN LISPRO 100 UNIT/ML 3ML VIAL SUBCUT ×3 (09:55→18:11)
--- NOTE | 2024-12-09 11:02 | P.PN_ITS ---
Subjective Subjective Interval history: Summary: S/P ORIF for femur fracture. Uncomplicated post operative course. S: He was doing well, minimal pain. He is not looking forward to rehab facility but is willing to do what he needs to do. O: NAD, alert and oriented. Fluent speech. Lungs are clear, normal rate and effort. Heart is regular, no murmur gallop or rub. Abdomen is soft, non distended. Extremities are free of edema. A/P: 1. Pathologic left femur fracture secondary to or setting metastatic prostate carcinoma status post cephalomedullary nail 2. Metastatic prostate carcinoma * stable. DVT prophylaxis: * ASA BID 6 weeks. Code status: * Do not resuscitate Disposition: SNF in 1 day. Exam Vital Signs (past 8 hours): Oxygen Delivery Method Nasal Cannula Oxygen Flow Rate 0 Objective Labs 12/09/24 04:22 12/08/24 04:50 Labs: Laboratory Results - last 24 hr 12/07/24 12/08/24 12/08/24 09:35 04:50 12:00 WBC RBC Hgb Hct MCV MCH MCHC RDW Plt Count Neut % (Auto) Lymph % (Auto) [place]ope % (Auto) Eos % (Auto) Baso % (Auto) Neut # (Auto) Lymph # (Auto) [place] # (Auto) Eos # (Auto) Baso # (Auto) POC Whole Bld Glucose 169 H Hemoglobin A1c 8.2 H Blood Type B Positive Antibody Screen Negative Crossmatch See Detail 12/08/24 12/08/24 12/09/24 16:52 20:49 04:22 WBC 10.6 RBC 2.68 L Hgb 7.8 L Hct 23.4 L MCV 87.3 MCH 29.2 MCHC 33.5 RDW 20.0 H Plt Count 296 Neut % (Auto) 86.5 H Lymph % (Auto) 5.2 L Slope % (Auto) 7.0 Eos % (Auto) 0.9 L Baso % (Auto) 0.4 Neut # (Auto) 9200 H Lymph # (Auto) 500 L [place]ope # (Auto) 700 Eos # (Auto) 100 Baso # (Auto) 0 POC Whole Bld Glucose 239 H 201 H Hemoglobin A1c Blood Type Antibody Screen Crossmatch 12/09/24 08:08 WBC RBC Hgb Hct MCV MCH MCHC RDW Plt Count Neut % (Auto) Lymph % (Auto) [place] % (Auto) Eos % (Auto) Baso % (Auto) Neut # (Auto) Lymph # (Auto) Slope # (Auto) Eos # (Auto) Baso # (Auto) POC Whole Bld Glucose 152 H Hemoglobin A1c Blood Type Antibody Screen Crossmatch [facility] Social History household members: spouse and children Smoking Status: Never smoker alcohol intake: never eating out: 1-3 times/week Type(s) of exercise: walking Assessment & Plan Time-Based Coding :: [TOTAL MINUTES] spent with patient and on the chart (including review of chart, obtaining history, exam, reviewing outside data, placing orders, documenting exam and treatment plan, and counseling patient) on [DATE]. Quality VTE Deep Vein Thrombosis/Pulmonary Embolism Present on Admission: No
--- NOTE | 2024-12-09 11:06 | CM.DPC ---
DCP Cont. Reviewed EMR and team rounds for pt's medical status and updates. Met with pt/spouse to discuss the recommendation for SNF rehab at time of d/c, pt is still a 2-person assist. Their preference is [facility]. FREELANCE WRITER faxed referral and clinicals for them to review. He will be medically eligible for SNF tomorrow, 12/10/24.
--- NOTE | 2024-12-09 14:49 | DIET.PN1 ---
Dietary Progress Note Assessment: Met with pt, protein mariiaie almost gone at bedside. Tolerated protein supplement when using plain yogurt. Continuing TID. Ht: 172.72 cm Wt: 67.585 kg BMI: 22.6 Last BM: () MNA: 9 Micheal Score: 17 Diet: 12/07/24 Lunch Carbohydrate Consistent Diet Diet Modifications: Carbohydrate level: Medium (3 CHO) Reflex DM orders: No Food Texture: Level 7 - Regular Liquid Consistency: Level 0 - Thin Nutrition Percent Meal Consumed 25% 12/08/24 18:00 Percent Meal Consumed 100% 12/07/24 19:30 Labs: RBC 2.68 X10^6/uL (4.5-5.9) L 12/09/24 04:22 Hgb 7.8 g/dL (13.5-17.5) L 12/09/24 04:22 Hct 23.4 % (41-53) L 12/09/24 04:22 Creatinine 0.58 mg/dL (0.66-1.25) L 12/08/24 04:50 Hemoglobin A1c 8.2 % (4.0-6.0) H 12/08/24 04:50 Electronically Signed by: Anastasia Lozano 12/09/24 14:[address] [id number]
[2024-12-09] MEDS: MAGNESIUM HYDROXIDE 30 ML UDC PO (15:56)
[2024-12-09] MEDS: INSULIN GLARGINE 100 UNIT/ML 3ML PEN 12 UNIT SUBCUT (20:20)
[2024-12-09] MEDS: SENNOSIDES 8.6 MG TABLET PO (20:21)
[2024-12-09] MEDS: MIRTAZAPINE 15 MG TABLET 7.5 MG PO (20:21)
[2024-12-09] MEDS: SODIUM CHLORIDE 0.9% FLUSH 10 ML IV (20:21)
[2024-12-09 20:31] VITALS: BP 146/79; PULSE 111; RESP 18; TEMP 36.9; O2SAT 96
--- NOTE | 2024-12-10 01:07 | PC.NURSE ---
Patient is alert and oriented. Breath sounds CTA with RA sat of 96%. HRR but tachy at 111 bpm. Did complain of slight nausea but declined antiemetic. Also complained of left hip pain at 3/10 and received scheduled Tylenol and then at 2114 complained of 6/10 headache and received oxycodone after which he fell asleep. BT present and is passing flatus but has not yet had a BM; received MOM on previous shift and medicated with Colace and Senna at hs. Is able to reposition himself in bed. Dressings to left lateral leg/hip are CDI. Has chronic neuropathy in bilateral ankles but otherwise CMS is intact with strong pedal pulses. Refusing SCD's as they cause increased pain in legs. Is up to BSC with 2 assists + walker. Working with PT to increase activity. Fall risk score is high and bed alarm is activated. , Racheal, rooming in.
[2024-12-10] MEDS: ACETAMINOPHEN 325 MG TABLET 650 MG PO ×4 (01:42→21:05)
--- NOTE | 2024-12-10 07:14 | PM.PNPO.1 ---
Exam Vital Signs (past 8 hours): Oxygen Delivery Method Room Air Oxygen Flow Rate 0 Objective Labs 12/09/24 04:22 12/08/24 04:50 Labs: Laboratory Results - last 24 hr 12/09/24 12/09/24 12/09/24 08:08 11:39 16:50 POC Whole Bld Glucose 152 H 201 H 165 H 12/09/24 20:30 POC Whole Bld Glucose 161 H PFSH Social History household members: spouse and children Smoking Status: Never smoker alcohol intake: never eating out: 1-3 times/week Type(s) of exercise: walking Assessment & Plan Post-op Postoperative Procedures: Procedures Operation Date: 12/07/24 09:45 Actual Procedure Side Surgeon p Intramedullary Nailing Femur Left David Ash MD Postoperative plan narrative: ID: 74 yo M s/p LEFT Hip Cephalomedullary Nail on 12/07/24 S: Pain better controlled. Denies F/C/NS/CP/SOB. Tolerating PO. states that he will likely be transferred to a SNF tomorrow. O: LEFT Hip: Dressings C/D/I Fires Quad/Hamstring/TA/Gastroc/EHL SILT in S/S/DP/SP/T nerve distributions Cap refill < 2 sec A/P: 74 year old male with a past medical history of insulin-dependent diabetes, prostate cancer and chronic anemia s/p left hip cephallomeduallry nail on 12/07/2024. His pain is better controlled today. Yesterday able to sit, stand and pivot to a chair. Will work with PT again today. Hopefully will start ambulating. Plan: o Weightbearing as tolerated to left lower extremity with front wheeled walker o No hip precautions o DVT prophylaxis with 81 mg aspirin twice daily for 6 weeks o Continue multimodal analgesia with Tylenol, 10 mg oxycodone every 6 hours. o Bowel regimen as needed o Physical therapy evaluation and treatment today o Follow up with orthopedics 2 weeks post operatively o Ice to surgical site o Dressings to remain in place for 4 days post operatively Appreciate expertise of internal medicine physician in management of chronic medical comorbidities David Ash MD Orthopedics [phone] cell Time Spent With Patient Time with patient: 15-24 minutes Quality VTE Deep Vein Thrombosis/Pulmonary Embolism Present on Admission: No
[2024-12-10] MEDS: INSULIN LISPRO 100 UNIT/ML 3ML VIAL SUBCUT ×2 (08:26→12:12)
[2024-12-10 08:44] VITALS: BP 156/79; PULSE 114; RESP 16; TEMP 36.4; O2SAT 94
[2024-12-10] MEDS: DOCUSATE 100 MG CAPSULE PO ×2 (08:44→21:05)
[2024-12-10] MEDS: ASPIRIN EC 81 MG TABLET PO ×2 (08:45→21:02)
[2024-12-10] MEDS: SODIUM CHLORIDE 0.9% FLUSH 10 ML IV (08:50)
--- NOTE | 2024-12-10 09:02 | PT.IPTN ---
Current Diagnoses Malignant neoplasm of prostate (12/07/24) Pathological fracture in neoplastic disease, left femur, initial encounter for fracture (12/07/24) Surgery Performed Operation Date: 12/07/24 09:45 Actual Procedures p Intramedullary Nailing Femur(Left) - David Ash MD Physical Therapy Treatment Note M2 PT-IP Current Condition Start: 12/09/24 13:22 Freq: NEEDED Status: Active Protocol: Document 12/10/24 08:44 DCW (Rec: 12/10/24 09:11 DCW [id number]) Physical Therapy Current Condition Current Condition Evaluation Date 12/09/24 Treatment Diagnosis L hip nailing; difficulty in walking Onset Date 12/07/24 M3 PT-IP Subjective Start: 12/09/24 13:22 Freq: NEEDED Status: Active Protocol: Document 12/10/24 08:44 DCW (Rec: 12/10/24 09:11 DCW [id number]) Subjective Physical Therapy Visit Type Type Treatment Note Visit Start Time 08:44 Visit Stop Time 09:02 Number of BATTERYMAN Visits 0 Physical Therapy Visit Comments Patient Comments Pt in bed with HOB elevated, reports he had just did a pivot transfer to [facility], then to recliner, decided he was uncomfortable in recliner, and got back to bed. Admitted he did not want to get up with PT, but knows he needs to, so reluctantly agrees to therapy at this time. M4 PT-IP Mobility and Gait Start: 12/09/24 13:22 Freq: NEEDED Status: Active Protocol: Document 12/10/24 08:44 DCW (Rec: 12/10/24 09:11 DCW [id number]) PT-Bed Mobility Assessment Supine to Sit Supine to Sit Minimal Assistance,1 Person Assistance,Head of Bed Elevated Sit to Supine Sit to Supine Moderate Assistance,1 Person Assistance,Head of Bed Elevated PT-Transfer Assessment Sit to and From Stand Sit to and from Contact Guard Assistance,1 Person Assistance Stand Equipment Transfer Assistive Front Wheeled Walker Device Orthotic/Prosthetic No Devices or Brace: Gait Assessment Gait Gait Assistance Contact Guard Assist Required: Distance (Feet) 30 Able to Maintain Yes Weight Bearing Status During Gait Assistive Devices Assistive Device Front Wheeled Walker Gait Deviations General Gait Pattern Antalgic,Decreased Stride Length,Decreased Feet Clearance,Flexed Trunk,Narrow Based Gait,Step-to Gait Comments Gait Comments Ambulates around bed, turns, and returns to starting side of bed. Refused further ambulation. M5 PT-IP Objective Assessments Start: 12/09/24 13:22 Freq: NEEDED Status: Active Protocol: Document 12/09/24 09:05 AB (Rec: 12/09/24 13:37 AB [id number]) Orientation Orientation/Cognition Level of Alertness Alert Orientation Name,Place,Situation Language Function No Deficits Noted Ability Safety Awareness Decreased Safety Awareness Memory Description Short Term Impaired Gross Range of Motion Lower Extremity ROM Assessment Left Impaired Impairments pain limiting LLE movement with increase guarding Strength Lower Extremity Strength Assessment Left Impaired Hip 3-/5 Knee 3+/5 Muscle Tone Muscle Tone WNL Yes M6 PT-IP Treatment Start: 12/09/24 13:22 Freq: NEEDED Status: Active Protocol: Document 12/10/24 08:44 DCW (Rec: 12/10/24 09:11 DCW [id number]) Physical Therapy Treatment Other Treatments Other Treatment Attempted seated marching EOB, pt unable to perform Performed left hip flexion against gravity. Minimal abduction and adduction at hip M7 PT-IP Assessment and Plan Start: 12/09/24 13:22 Freq: NEEDED Status: Active Protocol: Document 12/10/24 08:44 DCW (Rec: 12/10/24 09:11 DCW [id number]) PT Summary Assessment and Plan Summary Impairments Pain,ROM,Strength,Balance,Coordination,Sensation,Tone, Cognition,Bed Mobility,Transfers,Gait,Activity Tolerance Assessment Summary Pt able to perform bed mobility and stand with significantly less assistance today, Largely Min A or CGA except for getting left leg back into bed following ambulation. Pt able to ambulate ~30 feet in room FWW / c CGA. provided assistance for bed mobility. If pt continues to improve, may be able to d/c home with supervision, however at this point, would still likely benefit from SNF rehab to improve strength and independence. Goals Bed Mobility Goal Minimal Assistance Transfer Goal Minimal Assistance,Front Wheeled Walker Gait Goal Minimal Assistance,Front Wheel Walker Gait Distance 50 Other Goals improve bed mobility, transfers and ambulation using FWW CGA 100 ft. Days to Meet Goals 10 Frequency of Treatment Frequency Of Once a Day Treatment Treatment Plan Physical Therapy Bed Mobility Training,Transfer Training,Gait Training, Treatment Plan Therapeutic Exercise,Balance Retraining,Post Op Education,Discharge Planning,Hot or Cold Pack, Neuromuscular Re-ed,Coordination Retraining,Manual Therapy Weight Bearing Status Weight Bearing Weight Bear as Tolerated Status Allowed Weight LLE WBAT Bearing Amount ( enter % or #) (%) Recommendations To Nursing Amount of Assist 1 Person Assist Needed Discharge Recommendations PT Discharge SNF Rehab Recommendations Transportation Needs Wheelchair/Cabulance at Discharge - PT assist 1
--- NOTE | 2024-12-10 09:30 | OT.IPNOTE ---
Able to take about equipment needs and pt too tired to practice at thsi time. NO charge.
--- NOTE | 2024-12-10 10:19 | CM.DPC ---
DCp Cont. Reviewed EMR and team rounds for pt's status updates. Faxed yesterday's PT note to [employer] for review. Anticipatiang d/c to [facility] tomorrow, transport time pending.
--- NOTE | 2024-12-10 12:34 | P.PN_ITS ---
Subjective Subjective Interval history: S: He was despondent today, uncomfortable. He was talking about hospice. He was pain control is suboptimal. Both ankles hurt. He was also constipated. 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 O: Flat affect, alert and oriented. Fluent speech. Pale, frail, and cachectic. Lungs are clear, normal rate and effort. Heart is regular, no murmur gallop or rub. Abdomen is soft, non distended. Extremities are free of edema. A/P: 1. Pathologic left femur fracture secondary to or setting metastatic prostate carcinoma status post cephalomedullary nail 2. Metastatic prostate carcinoma 3. Constipation. PLAN: -anticipate discharge to long-term facility. -we will add lactulose b.i.d. as needed constipation. -we will increase oxycodone, he did decline a higher dose earlier today. -we will discuss with palliative Care when they phone me. Exam Vital Signs (past 8 hours): - 12/10/24 08:44 Temperature 97.6 F Pulse Rate 114 H Respiratory Rate 16 Blood Pressure 156/79 H Pulse Oximetry 94 Oxygen Flow Rate 0 Oxygen Delivery Method Room Air Oxygen Flow Rate 0 Objective Labs 12/09/24 04:22 12/08/24 04:50 Labs: Laboratory Results - last 24 hr 12/09/24 12/09/24 12/10/24 16:50 20:30 07:34 POC Whole Bld Glucose 165 H 161 H 189 H 12/10/24 11:47 POC Whole Bld Glucose 163 H PFS Social History household members: spouse and children Smoking Status: Never smoker alcohol intake: never eating out: 1-3 times/week Type(s) of exercise: walking Assessment & Plan Time-Based Coding :: [TOTAL MINUTES] spent with patient and on the chart (including review of chart, obtaining history, exam, reviewing outside data, placing orders, documenting exam and treatment plan, and counseling patient) on [DATE]. Quality VTE Deep Vein Thrombosis/Pulmonary Embolism Present on Admission: No
[2024-12-10] MEDS: LACTULOSE 20 GM/30 ML SOLUTION PO (12:52)
--- NOTE | 2024-12-10 17:09 | PC.NURSE ---
Pt declined POC blood glucose check. Educated pt on purpose of POC BG checks and pt right to refuse. Pt stated he did not want it at this time. Plan of care continues.
[2024-12-10 19:00] VITALS: BP 152/77; PULSE 111; RESP 16; TEMP 36.9; O2SAT 96
[2024-12-10] MEDS: MIRTAZAPINE 15 MG TABLET 7.5 MG PO (21:02)
[2024-12-10] MEDS: SENNOSIDES 8.6 MG TABLET PO (21:04)
[2024-12-10] MEDS: INSULIN GLARGINE 100 UNIT/ML 3ML PEN 14 UNIT SUBCUT (21:05)
[2024-12-11] MEDS: SODIUM CHLORIDE 0.9% FLUSH 10 ML IV ×2 (00:26→09:18)
[2024-12-11] MEDS: ACETAMINOPHEN 325 MG TABLET 650 MG PO ×2 (03:49→09:14)
--- NOTE | 2024-12-11 07:36 | PM.PNPO.1 ---
Exam Vital Signs (past 8 hours): Oxygen Delivery Method Room Air Oxygen Flow Rate 0 Objective Labs 12/09/24 04:22 12/08/24 04:50 Labs: Laboratory Results - last 24 hr 12/10/24 12/10/24 12/10/24 07:34 11:47 19:52 POC Whole Bld Glucose 189 H 163 H 165 H PFSH Social History household members: spouse and children Smoking Status: Never smoker alcohol intake: never eating out: 1-3 times/week Type(s) of exercise: walking Assessment & Plan Post-op Postoperative Procedures: Procedures Operation Date: 12/07/24 09:45 Actual Procedure Side Surgeon p Intramedullary Nailing Femur Left David Ash MD Postoperative status narrative: ID: 74 yo M s/p LEFT Hip Cephalomedullary Nail on 12/07/24 S: Continues to have pain in the hip, knees and ankles. He is frustrated with his progress. Denies F/C/NS/CP/SOB. Tolerating PO. states that he will likely be transferred to a SNF tomorrow. O: LEFT Hip: Dressings C/D/I Fires Quad/Hamstring/TA/Gastroc/EHL SILT in S/S/DP/SP/T nerve distributions Cap refill < 2 sec A/P: 74 year old male with a past medical history of insulin-dependent diabetes, prostate cancer and chronic anemia s/p left hip cephallomeduallry nail on 12/07/2024. He walked 30ft with PT yesterday. Plan: o Weightbearing as tolerated to left lower extremity with front wheeled walker o No hip precautions o DVT prophylaxis with 81 mg aspirin twice daily for 6 weeks o Continue multimodal analgesia with Tylenol, 10 mg oxycodone every 6 hours. o Bowel regimen as needed o Physical therapy evaluation and treatment today o Follow up with orthopedics 2 weeks post operatively o Ice to surgical site o Dressings to remain in place for 4 days post operatively Appreciate expertise of internal medicine physician in management of chronic medical comorbidities David Ash MD Orthopedics [phone] cell Time Spent With Patient Time with patient: 15-24 minutes Quality VTE Deep Vein Thrombosis/Pulmonary Embolism Present on Admission: No
[2024-12-11] MEDS: ASPIRIN EC 81 MG TABLET PO (09:13)
[2024-12-11] MEDS: DOCUSATE 100 MG CAPSULE PO (09:13)
[2024-12-11] MEDS: INSULIN LISPRO 100 UNIT/ML 3ML VIAL SUBCUT (09:15)
--- NOTE | 2024-12-11 10:36 | CM.DPNOTE ---
Addendum entered by JENNIFER Rios 12/11/24 12:10: Addendum: ENERGY ADVISOR entered room with hospitalist, provided emotional support with pt and . Pt agreeable to SNF Rehab today, all discharge clinicals (with Signed PASRR) to [facility]. ANGELI Rodriguez Original Note: DCP Continued: Reviewed EMR and team rounds for pt?s medical status. Per hospitalist, pt cleared for discharge to [facility] Rehab today. Per [facility]missions, pt can be transported at 1130 via facility van. ENERGY ADVISOR discussed this with pt , who states pt is apprehensive about transport there. She hopes to discuss this in person when she arrives. ENERGY ADVISOR notified hospitalist of above. PASRR will need MD signature, discharge clinicals to be sent to [email or web address], [facility] Intake. Plan: Anticipating dc to [facility] on 12/11 at 1130 via facility van. CM Team will continue to follow for coordination of discharge plans. ANGELI Rodriguez
--- NOTE | 2024-12-11 10:42 | P.DS_ITS ---
History of Present Illness History of Present Illness Chief complaint: Left hip pain Narrative: From H&P: Hip pain secondary to pathologic fracture in the setting of metastatic prostate cancer History of present illness: 72-year-old with metastatic prostate cancer at about 7 days of increasing left hip pain then felt a pop when he tried to use the restroom this morning was came to the emergency department left hip subtrochanteric hip fracture. Patient was taken to the operating room by Dr. Glaser where he performed an ORIF with a cephalomedullary nail. Patient was transferred up to the floor where I evaluated Patient was in no acute distress with some postoperative pain afterward Discharge Providers Provider Date of admission: 12/07/24 08:52 Discharge Date: 12/11/24 Primary care physician: Fernando Ortiz MD Consults: 12/07/24 08:08 Consult to Orthopedic Surgery Stat Comment: Consulting Provider: Lloyd Ha Reason for consultation: pathologic fx L femur Has provider been notified: Yes 12/07/24 14:02 Consult to Discharge Planning Routine Comment: Discharge planning, possible to SNF Consult to Occupational Therapy Evaluate & Treat Comment: WBAT to left leg with walker, no hip precautions Physician Instructions: Evaluate and treat Consult to Physical Therapy Evaluate & Treat Comment: WBAT to left leg with walker, no hip precautions Physician Instructions: Evaluate and Treat Discharge provider: Luis Bennett MD Summary Hospital Course Discharge Diagnosis: 1. Pathologic left femur fracture secondary to or setting metastatic prostate carcinoma status post cephalomedullary nail. 2. Metastatic prostate carcinoma. 3. Constipation. Hospital Course: He was admitted with fall and hip fracture. He underwent ORIF and his post op course was complicated by pain and constipation. Status at Discharge Cognitive/behavioral status at discharge: oriented Functional status at discharge: bed bound Overall status at discharge: patient is progressing back to baseline Time Spent with Patient Time spent: Greater than 30 minutes Exam Vital Signs (past 8 hours): Oxygen Delivery Method Room Air Oxygen Flow Rate 0 Narrative Exam Narrative: Pale and cachectic. NAD, alert and oriented. Fluent speech. Lungs are clear, normal rate and effort. Heart is regular, no murmur gallop or rub. Abdomen is soft, non distended. Extremities are free of edema. Left hip wound unremarkable. Objective ECG Impression: Intervals [place] Rate: 98 P: 60 OK: 142 QRS: 65 QRSD: 90 T: 38 QT: 362 QTc: 462 Interpretive Statements Normal sinus rhythm Nonspecific ST abnormality Imaging Chest x-ray: Radiologist's impression: Limited supine view with low lung volumes, bibasilar subsegmental atelectasis as discussed above. Hip Xray: : Radiologist's impression: Left proximal femur fracture. Follow-up is needed Labs 12/09/24 04:22 12/08/24 04:50 Labs: Laboratory Results - last 24 hr 12/10/24 12/10/24 12/11/24 11:47 19:52 09:10 POC Whole Bld Glucose 163 H 165 H 166 H PFSH Social History household members: spouse and children Smoking Status: Never smoker alcohol intake: never eating out: 1-3 times/week Type(s) of exercise: walking Discharge Assessment & Plan Assessment and Plan Assessment: 1. Hip fracture. Plan of Treatment: Transfer to [facility]. Discharge Plan Discharge Plan Patient Disposition: SNF Transfer to: [facility] Under care of provider: SNF provider. Provider Discharge Comment: PROCEDURE: Open Reduction Internal Fixation Left Subtrochanteric Femur Fracture SURGEON: Dr Ash DATE: 12/07/24 ACTIVITY INSTRUCTIONS -You are weight bearing as tolerated to the left lower extremity. Use a walker when ambulating. -You must be cleared by your orthopedic provider before operating a vehicle. -Follow up with the orthopedic clinic in 2 weeks. Call our office at [phone] with any concerns DRESSING CARE -You have [address] about the left hip. They are covered in Tegaderm which is waterproof. Remove the simple dressings on post operative day 4 (Saturday12/11/24). You will see kellie in place that should remain in place. You may cover them with a band-aid if they catch on your clothing and cause irritation. -You can use ice on top of the dressing to reduce pain and swelling of the extremity. -In the rare case of any severe chest pain and trouble breathing, seek immediate care, do not delay for a call to the clinic. RETURN PRECAUTIONS: If you develop any of the following symptoms during working hours, please contact the [facility] at [phone]. -Temperature greater than 100.5 taken twice by 2 hours -Difficulty breathing -Bleeding completely through the dressing -Fevers and chills -Increased pain that is unrelieved by ice, elevating the surgery site, and medications -Painful cast or splint -Redness or drainage at the incision site -After working hours, please go to the [facility] Emergency Room. MEDICATIONS: - Take aspirin 81 mg every 12 hours for 6 weeks. This medication is used to prevent blood clots and should be taken regardless of pain. - Take acetaminophen 1000 mg every 8 hours for pain control Discharge orders & Medications Prescriptions: New oxycodone 5 mg Tablet 5 mg PO Q6H Qty: 15 0RF lactulose 10 gram/15 mL solution 20 g PO BID PRN (Reason: constipation) Qty: 300 0RF Continued ASPIRIN (#ASPIR 81) 81 mg PO DAILY Qty: 0 metformin [Glucophage XR] 500 MG tablet extended release 24 hr 1,000 mg PO BID Qty: 0 [MENS MULTIPLE VIT.] 1 tab PO DAILY Qty: 0 Fish Oil (Fish Oil 500 MG Softgel) 2,000 mg PO QDAY Qty: 0 polyethylene glycol 3350 [Miralax] 17 gram Powder In Packet 17 g PO DAILY PRN (Reason: Constipation) lisinopril 20 mg tablet 20 mg PO DAILY PRN (Reason: Hypertension) Rx Instructions: take in BP > 130/60 acetaminophen [Tylenol Extra Strength] 500 mg Tablet 1,000 mg PO Q6H PRN (Reason: Pain (Scale Score 4-6)) bisacodyl 10 mg Suppository 10 mg OK DAILY PRN (Reason: Constipation) mirtazapine 7.5 mg tablet 7.5 mg PO ONCE PM duloxetine 60 mg capsule,delayed release(DR/EC) 60 mg PO DAILY calcium citrate-vitamin D3 200 mg-3.125 mcg (125 unit) Tablet 1 tab PO DAILY insulin glargine [Lantus Solostar U-100 Insulin] 100 unit/mL (3 mL) insulin pen 12 unit SUBCUT BEDTIME Patient Comments: [NO ORIGINAL SIG] pregabalin 82.5 mg tablet extended release 24 hr 82.5 mg PO BEDTIME magnesium oxide 400 mg magnesium Tablet 400 mg PO DAILY Medication counseling provided by Pharmacist: No Follow up/Referrals: Fernando Ortiz MD [Primary Care Provider, Family Practice] Discharge Health Status Multidrug resistant organism: No MDRO Diet/Activity/Treatments Diet: Regular Special Rehabilitation Services Reason for rehabilitation: Post-operative therapy Rehab type: Physical therapy and Occupational therapy Visit Report/Discharge Packet Instructions: DI for Hip Fracture Stand Alone Forms: Patient Portal/API Discharge Data Primary Care Provider: Fernando Ortiz VTE Deep Vein Thrombosis/Pulmonary Embolism Present on Admission: No
--- NOTE | 2024-12-11 12:30 | PC.NURSE ---
Discharge Note Patient A&O, VSS, RA, no complaints of pain/discomfort. Discharge packet reviewed with patient, all questions/concerns addressed. PIV discontinued. Patient able to dress self and pack all belongings with assistance. Discharge packet given to facility staff. Patient taken down via wheelchair by facility staff accompanied by .
--- NOTE | 2025-01-08 20:05 | P.PN_ITS ---
Subjective Subjective Date Patient Seen: 12/08/24 Interval history: Chief complaint: Hip pain secondary to pathologic fracture in the setting of metastatic prostate cancer History of present illness: 72-year-old with metastatic prostate cancer at about 7 days of increasing left hip pain then felt a pop when he tried to use the restroom this morning was came to the emergency department left hip subtrochanteric hip fracture. Patient was taken to the operating room by Dr. Glaser where he performed an ORIF with a cephalomedullary nail. Patient was transferred up to the floor where I evaluated Patient was in no acute distress with some postoperative pain afterward Objective findings with significant hemoglobin was 8.3 preoperative and 7.4 postoperative hemogram otherwise unremarkable basic metabolic profile also in reference range 12/08: No postoperative complications Review of systems: No fever or chills rigors No chest pain palpitations shortness for breath No nausea vomiting diarrhea The paresthesia paresis No visual changes or loss of consciousness Physical exam: Very pleasant chronically ill pale elderly male no distress HEENT unremarkable No labored respiration Abdomen benign Extremities no edema Assessment and plan: Pathologic left femur fracture secondary to or setting metastatic prostate carcinoma status post cephalomedullary nail * Appreciate orthopedic expertise * DVT prophylaxis per orthopedic stewardship Metastatic prostate carcinoma * Management per specialist's DVT prophylaxis: * Per orthopedic stewardship Code status: * Do not resuscitate Disposition: * Inpatient expect 1-2 of hospitalization disposition to be determined as patient's progress with the home with home health or skilled rehab Time based billing: * 35 minutes were involved in the management of this patient including [id number] evaluation of the patient physical examination review of records laboratory objective findings and imaging Exam Vital Signs (past 8 hours): Oxygen Delivery Method Room Air Oxygen Flow Rate 0 Objective Labs 12/09/24 04:22 12/08/24 04:50 [facility] Social History household members: spouse and children Smoking Status: Never smoker alcohol intake: never eating out: 1-3 times/week Type(s) of exercise: walking Assessment & Plan Time-Based Coding :: [TOTAL MINUTES] spent with patient and on the chart (including review of chart, obtaining history, exam, reviewing outside data, placing orders, documenting exam and treatment plan, and counseling patient) on [DATE]. Quality VTE Deep Vein Thrombosis/Pulmonary Embolism Present on Admission: No
== END 2024-12-11 12:00 | DRG 481 ==
LOC: ED 08:47 → AC 08:52
PROVIDERS: Anesthesiology; Orthopaedic Surgery; Pharmacist Pharmacist Clinician (PhC)/ Clinical Pharmacy Specialist; Physician Assistant Surgical; Admitting Provider Internal Medicine; Emergency Provider Emergency Medicine; PCP Family Medicine; Referring Provider Emergency Medicine; Visit Provider Internal Medicine
PROC: 0QS706Z Reposition Left Upper Femur with Intramedullary Internal Fixation Device, Open Approach (ICD-10-PCS; CPT 27245; principal; 2024-12-07 09:45)
DX: M84.552A Pathological fracture in neoplastic disease, left femur, initial encounter for fracture (principal); C79.51 Secondary malignant neoplasm of bone; C61 Malignant neoplasm of prostate; E11.9 Type 2 diabetes mellitus without complications; K59.00 Constipation, unspecified; I10 Essential (primary) hypertension; D63.0 Anemia in neoplastic disease; Z79.84 Long term (current) use of oral hypoglycemic drugs; Z79.4 Long term (current) use of insulin; Z66 Do not resuscitate
CPT/HCPCS: 27245; 36415; 36430; 71045; 73502; 73552; 76000; 80048; 80053; 82962; 83036; 85014; 85018; 85025; 86850; 86900; 86901; 86945; 93005; 96374; 96375; 97116; 97162; 97166; 97530; 99283; 99284; P9016; C1713; J0131; J0689; J1171; J1815; J1885; J2405; J2704; J3010; J7120